=== PATIENT | male | born 1950 | race Caucasian/White ===

== ENCOUNTER 2017-09-14 08:17 | Inpatient (IN) | payer MEDICARE, MEDICAID ==
[2017-09-14] VITALS (7 sets, daily range): BP systolic 128–132; BP diastolic 74–77; PULSE 73–84; RESP 17–19; TEMP 98.1; Ht 177.8 cm; Wt 82.0 kg
[~2017-09-14] VITALS: Ht 177.8 cm; Wt 82.0 kg
[~2017-09-14 08:17] MED LIST: CENTSILV PO; SILD100T51
[2017-09-14] MEDS ORDERED: ASPIRIN 81 MG TAB PO STA (08:33)
[2017-09-14 09:11] LABS: BASOPHILS % 0.5 % (0.0-2.0); EOSINOPHILS # 0.5 10^3/ul (0.0-0.5); EOSINOPHILS % 6.6 % (0.0-7.0); HEMOGLOBIN 14.3 g/dl (14.0-18.0); LYMPHOCYTES % 13.3 % (15.0-51.0); MEAN CORPUSCULAR HEMOGLOBIN 28.6 pg (29.0-33.0); MEAN CORPUSCULAR HGB CONC 31.8 g/dl (32.0-37.0); MEAN PLATELET VOLUME 10.9 fl (7.4-10.4); MONOCYTE # 0.7 10^3/ul (0.3-0.9); MONOCYTES % 9.6 % (0.0-11.0); NEUTROPHIL # 5.1 10^3/ul (1.6-7.5); NEUTROPHILS % 69.6 % (39.0-77.0); PLATELET COUNT 252 10^3/UL (140-415); RED CELL DISTRIBUTION WIDTH 16.2 % (11.5-14.5); WHITE BLOOD COUNT 7.4 10^3/ul (4.8-10.8)
--- NOTE | 2017-09-14 09:37 | RADRPT ---
PROCEDURE: XR Chest. CLINICAL INDICATION: Chest pain . TECHNIQUE: Single frontal chest x-ray. COMPARISON: 08/28/2013 FINDINGS: There has been interval sternotomy and placement of a left-sided dual chamber AICD. . Cardiomegaly i s present.. There is mild bibasilar atelectasis. There is no alveolar infiltrates, edema, or effusi ons.. The osseous structures are intact. IMPRESSION: No acute cardiopulmonary disease. Cardiomegaly status post sternotomy with left-sided AICD in place. RPTAT: HH .Maynor Mcknight MD, Date Time Electronically viewed and signed by .Maynor Mcknight MD, on 09/14/2017 09:37 .L/
[2017-09-14 09:42] LABS: CALCIUM 8.4 mg/dl (8.4-10.2); POTASSIUM 4.3 mmol/L (3.5-5.1)
[2017-09-14 09:53] LABS: TROPONIN-I 0.034 ng/ml (0.00-0.12)
--- NOTE | 2017-09-14 10:23 | ERA ---
ER Documentation Chief Complaint Date/Time DATE: 09/14/17 TIME: 10:14 Chief Complaint Complains of chest tightness today Hx of CAD HPI 67-year-old male with a history of CAD, hypertension, stroke with chronic left- sided weakness presenting with substernal chest pain for the past 2-3 days. The pain is intermittent, radiating to his left arm and to his back occasionally. currently 2/10. Exacerbated by exertion. He has had associated shortness of breath without diaphoresis, dizziness, or vomiting. He endorses a history of CABG in 2013 and subsequently had an AICD placed. A few months ago, he was told to stop all of his medications, but cannot tell me why. His care was in [place]. Currently he is not on any medications other than occasional Viagra and vitamins. He denies any new focal weakness or numbness. He states his left leg is usually smaller than his right leg due to muscle atrophy from his stroke. No new leg swelling. No recent immobilization or surgeries. No history of blood clots. ROS All systems reviewed and are negative except as per history of present illness. Medications Home Meds Reported Medications Multivitamins/Minerals (Centrum Silver) 1 Tab Tab, 1 TAB PO DAILY 01/27/12 Sildenafil Citrate* (Viagra*) 100 Mg Tablet 04/23/11 Allergies Allergies: Coded Allergies: No Known Drug Allergies (Verified Allergy, Unknown, 09/14/17) PMhx/Soc History of Surgery: Yes (coronary bypass , pacemaker , lt ankle ,abd surgery ) Anesthesia Reaction: No Hx Neurological Disorder: Yes (stroke , lt side weakness ) Hx Respiratory Disorders: No Hx Cardiac Disorders: Yes (htn ) Hx Psychiatric Problems: Yes Hx Miscellaneous Medical Probl: Yes (acid reflux) Hx Alcohol Use: No Hx Substance Use: No Hx Tobacco Use: Yes (Pack and a half a day) Smoking Status: Current every day smoker FmHx Family History: No diabetes Physical Exam Vitals Vital Signs Date Time Temp Pulse Resp B/P Pulse Ox O2 Delivery O2 Flow Rate FiO2 09/14/17 09:45 84 16 113/68 98 Room Air 09/14/17 08:50 Nasal Cannula 2 09/14/17 08:22 97.0 84 20 141/79 98 Physical Exam Const: unkempt, no distress, nontoxic Head: Atraumatic Eyes: Normal Conjunctiva ENT: Normal External Ears, Nose and Mouth. Neck: Full range of motion..~ No meningismus. Resp: Clear to auscultation bilaterally Cardio: Regular rate and rhythm, no murmurs. 2+ distal pulses Abd: Soft, non tender, non distended. Normal bowel sounds Skin: No petechiae or rashes Back: No midline or flank tenderness Ext: No cyanosis. LLE with muscle atrophy. No pitting edema. Neur: Awake and alert, normal gait, left side weaker than tight but intact. RUE,RLE 5/5 strength. LUE and LLE 4+/5 strength. sensations intact. Psych: Normal Mood and Affect Result Diagram: 09/14/1785409/14/17854 Results 24 hrs Laboratory Tests Test 09/14/17 08:55 White Blood Count 7.410^3/ul Red Blood Count 5.0010^6/ul Hemoglobin 14.3g/dl Hematocrit 45.0% Mean Corpuscular Volume 90.0fl Mean Corpuscular Hemoglobin 28.6pg Mean Corpuscular Hemoglobin Concent 31.8g/dl Red Cell Distribution Width 16.2% Platelet Count 37735^3/UL Mean Platelet Volume 10.9fl Neutrophils % 69.6% Lymphocytes % 13.3% Monocytes % 9.6% Eosinophils % 6.6% Basophils % 0.5% Nucleated Red Blood Cells % 0.0/100WBC Neutrophils # 5.110^3/ul Lymphocytes # 1.010^3/ul Monocytes # 0.710^3/ul Eosinophils # 0.510^3/ul Basophils # 0.010^3/ul Nucleated Red Blood Cells # 0.010^3/ul Sodium Level 143mmol/L Potassium Level 4.3mmol/L Chloride Level 106mmol/L Carbon Dioxide Level 29mmol/L Anion Gap 12 Blood Urea Nitrogen 19mg/dl Creatinine 1.00mg/dl Glucose Level 98mg/dl Calcium Level 8.4mg/dl Troponin I 0.034ng/ml Current Medications Medications (Trade) Dose Ordered Sig/Jones Route PRN Reason Start Time Stop Time Status Last Admin Dose Admin Aspirin (Aspirin) 162 mg ONCE STAT PO 09/14/17 08:33 09/14/17 08:34 DC 09/14/17 08:38 Procedures/MDM EKG: Rate/Rhythm: V paced rhythm with preceding P waves prior to pacer spikes QRS, ST, T-waves: Nonspecific T-wave abnormalities Impression: No STEMI or arrhythmia Chest x-ray shows cardiomegaly, no other acute abnormalities Labs CBC unremarkable BMP unremarkable Troponin within normal limits Patients symptoms are concerning for a cardiac etiology. Other etiologies considered were PE, aortic dissection, pneumonia, pneumothorax, esophageal rupture, however I have lower suspicion for these. EKG showed no acute ischemia but was abnormal. Initial troponin negative. CXR grossly unremarkable. However , patient had high risk of adverse events. ASA given. Patient is not safe for discharge and will need inpatient monitoring and further evaluation. Further workup will be deferred to the inpatient team. Accepting Care Team: Current data and ongoing care discussed. Time: Time of admission Primary Provider: Kelvin Consulting: None Outstanding Data: none Departure Diagnosis: Primary Impression: Chest pain Qualified Code: R07.89 - Other chest pain Condition: Fair MARY KATE PRESTON MD Sep 14, 2017 10:23
[2017-09-14] MEDS ORDERED: ACETAMINOPHEN 325 MG TAB PO PRN ×2 (10:30→15:00)
[2017-09-14] MEDS ORDERED: ONDANSETRON 4 MG INJ IV PRN ×2 (10:30→15:00)
[2017-09-14] MEDS ORDERED: FAMOTIDINE 20 MG TAB PO ONE (10:30)
[2017-09-14 14:24] LABS: TROPONIN-I 0.022 ng/ml (0.00-0.12)
[2017-09-14 14:34] LABS: CK-MB 3.24 ng/ml (0.0-2.4)
--- NOTE | 2017-09-14 14:41 | HP ---
Date/Time of Note Date/Time of Note DATE: 09/14/17 TIME: 14:35 Assessment/Plan VTE Prophylaxis VTE Prophylaxis Intervention: SCD's Lines/Catheters [facility] Saline Lock Assessment/Plan Chief Complaint/Hosp Course 1. Chest pain x 1 week No e/o ACS at this time Cards consult with Dr Wynn Cardiac Rx 2. Homeless SW consult 3. Hx of of CAD and AICD placement PPx- SCD's Problems: HPI/ROS Admit Date/Time Admit Date/Time Sep 14, 2017 at 10:14 Hx of Present Illness Pt is a 67-year-old male with a history of CAD s/p CABG in 2013 and AICD placement, hypertension, stroke with chronic left-sided weakness presenting with substernal chest pain for the past week. The pain is intermittent, radiating to his left arm and to his back occasionally. Pt reports having stopped his medications for unclear reasons. Pt was living in [place] and recently moved back an dis now homeless. Pt has no other complaints. ROS Constitutional: improved, no complaints Eyes: no complaints ENT: no complaints Respiratory: no complaints Cardiovascular: chest pain Gastrointestinal: no complaints Genitourinary: no complaints Musculoskeletal: no complaints Skin: no complaints Neurologic: no complaints Endocrine: no complaints Lymphatic: no complaints Psychological: nl mood/affect, no complaints Immunologic: no complaints PMH/Family/Social Past Medical History As per HPI Past Surgical History Past Surgical Hx: no surgical history Family History Significant Family History: no pertinent family hx Social History Alcohol Use: none Smoking Status: Current every day smoker Drug Use: none Exam/Review of Systems Vital Signs Vitals Vital Signs Date Time Temp Pulse Resp B/P Pulse Ox O2 Delivery O2 Flow Rate FiO2 09/14/17 12:41 73 09/14/17 12:00 98.0 19 132/75 97 Room Air 09/14/17 08:50 2 Exam Constitutional: alert, oriented Respiratory: clear to auscultation Cardiovascular: regular rate and rhythm Gastrointestinal: soft, No distended Musculoskeletal: nl extremities to inspection Labs Result Diagram: 09/14/17 0855 09/14/17 0855 SYLVIA EID Sep 14, 2017 14:41
[2017-09-14] MEDS ORDERED: NACL 0.9% 3 ML SYG IV SCH (15:00)
[2017-09-14] MEDS ORDERED: ZOLPIDEM 5 MG TAB PO PRN (15:00)
[2017-09-14] MEDS ORDERED: NITROGLYCERIN (SL) 0.4 MG TAB SL PRN (15:00)
[2017-09-14] MEDS ORDERED: HYDROCODONE/APAP (5/325) TAB PO PRN (15:00)
[2017-09-14] MEDS ORDERED: morphine 2 MG INJ IV PRN (15:00)
[2017-09-14 20:59] LABS: TROPONIN-I 0.029 ng/ml (0.00-0.12)
[2017-09-14 21:17] LABS: CK-MB 2.61 ng/ml (0.0-2.4)
[2017-09-15] VITALS (12 sets, daily range): BP systolic 112–138; BP diastolic 60–87; PULSE 67–93; RESP 16–18
[2017-09-15 06:37] LABS: BASOPHILS % 0.7 % (0.0-2.0); EOSINOPHILS # 0.6 10^3/ul (0.0-0.5); EOSINOPHILS % 10.5 % (0.0-7.0); HEMATOCRIT 40.6 % (42.0-52.0); LYMPHOCYTES # 1.1 10^3/ul (0.8-2.9); LYMPHOCYTES % 19.2 % (15.0-51.0); MEAN CORPUSCULAR HEMOGLOBIN 28.4 pg (29.0-33.0); MEAN CORPUSCULAR VOLUME 88.6 fl (82.0-101.0); MEAN PLATELET VOLUME 11.6 fl (7.4-10.4); MONOCYTE # 0.6 10^3/ul (0.3-0.9); MONOCYTES % 10.7 % (0.0-11.0); NEUTROPHIL # 3.2 10^3/ul (1.6-7.5); NEUTROPHILS % 58.7 % (39.0-77.0); PLATELET COUNT 223 10^3/UL (140-415); RED BLOOD COUNT 4.58 10^6/ul (4.70-6.10); RED CELL DISTRIBUTION WIDTH 16.3 % (11.5-14.5); WHITE BLOOD COUNT 5.5 10^3/ul (4.8-10.8)
[2017-09-15 07:25] LABS: CALCIUM 8.5 mg/dl (8.4-10.2); CHOL/HDL RATIO 3.5 RATIO; CREATININE 0.97 mg/dl (0.61-1.24); MAGNESIUM 1.9 mg/dl (1.7-2.5); POTASSIUM 4.3 mmol/L (3.5-5.1)
[2017-09-15 07:45] LABS: PHOSPHORUS 3.4 mg/dl (2.5-4.9)
[2017-09-15] MEDS ORDERED: INFLUENZA VIRUS VACCINE 0.5 ML SYG IM* ONE (09:00)
[2017-09-15] MEDS: LISINOPRIL 5 MG TAB PO SCH (17:17)
--- NOTE | 2017-09-15 18:40 | PN ---
Date/Time of Note Date/Time of Note DATE: 09/15/17 TIME: 18:37 Assessment/Plan VTE Prophylaxis VTE Prophylaxis Intervention: SCD's Lines/Catheters [facility] Saline Lock Urinary Cath still in place: No Assessment/Plan Chief Complaint/Hosp Course 1. Chest pain x 1 week No e/o ACS at this time, trops are negative [address] Wynn pending Continue cardiac meds 2. Homeless SW consult 3. Hx of of CAD and AICD placement 4. Rash on groin Start nystatin cream PPx- SCD's Problems: Subjective 24 Hr Interval Summary Skin: rash (On groin) Exam/Review of Systems Vital Signs Vitals Vital Signs Date Time Temp Pulse Resp B/P Pulse Ox O2 Delivery O2 Flow Rate FiO2 09/15/17 16:51 74 09/15/17 15:35 97.7 16 120/79 96 09/14/17 12:00 Room Air 09/14/17 08:50 2 Intake and Output 09/14/17 09/14/17 09/15/17 15:00 23:00 07:00 Intake Total 950 ml 1000 ml Balance 950 ml 1000 ml Exam Constitutional: alert, oriented Respiratory: clear to auscultation Cardiovascular: regular rate and rhythm Gastrointestinal: soft, No distended Musculoskeletal: nl extremities to inspection Results Result Diagram: 09/15/17 0541 09/15/17 0541 Results 24 hrs Laboratory Tests Test 09/14/17 20:17 09/15/17 05:41 Creatine Kinase 58 Creatine Kinase Index 4.5 Creatinine Kinase MB (Mass) 2.61 H Troponin I 0.029 White Blood Count 5.5 # Red Blood Count 4.58 L Hemoglobin 13.0 L Hematocrit 40.6 L Mean Corpuscular Volume 88.6 Mean Corpuscular Hemoglobin 28.4 L Mean Corpuscular Hemoglobin Concent 32.0 Red Cell Distribution Width 16.3 H Platelet Count 223 Mean Platelet Volume 11.6 H Neutrophils % 58.7 Lymphocytes % 19.2 Monocytes % 10.7 Eosinophils % 10.5 H Basophils % 0.7 Nucleated Red Blood Cells % 0.0 Neutrophils # 3.2 Lymphocytes # 1.1 Monocytes # 0.6 Eosinophils # 0.6 H Basophils # 0.0 Nucleated Red Blood Cells # 0.0 Sodium Level 139 Potassium Level 4.3 Chloride Level 110 Carbon Dioxide Level 26 Anion Gap 7 L Blood Urea Nitrogen 23 H Creatinine 0.97 Glucose Level 99 Hemoglobin A1c 5.9 Calcium Level 8.5 Phosphorus Level 3.4 Magnesium Level 1.9 Triglycerides Level 75 Cholesterol Level 115 LDL Cholesterol, Calculated 68 HDL Cholesterol 32 Cholesterol/HDL Ratio 3.5 Medications Medications Current Medications Ondansetron HCl (Zofran Inj) 4 mg Q6H PRN IV NAUSEA AND/OR VOMITING; Start at 15:00 Acetaminophen (Tylenol Tab) 650 mg Q6H PRN PO PAIN LEVEL 1-3 OR FEVER; Start 09/14/17 at 15:00 Acetaminophen/ Hydrocodone Bitart ([place] (5/325)) 1 tab Q6H PRN PO MODERATE PAIN LEVEL 4-6; Start 09/14/17 at 15:00 Morphine Sulfate (morphine) 2 mg Q4H PRN IV SEVERE PAIN LEVEL 7-10; Start at 15:00 Zolpidem Tartrate (Ambien) 5 mg QHS PRN PO SLEEP; Start 09/14/17 at 15:00 Aspirin (Aspirin) 81 mg DAILY PO ; Start 09/16/17 at 09:00 Carvedilol (Coreg) 6.25 mg BID PO Last administered on 09/15/17 08:48; Admin Dose 6.25 MG; Start 09/14/17 at 21:00 Nitroglycerin (Nitroglycerin (Sl Tab) 0.4 Mg) 1 tab Q5M PRN SL CHEST PAIN; Start 09/14/17 at 15:00 Lisinopril (Zestril) 5 mg DAILY PO Last administered on 09/15/17 17:17; Admin Dose 5 MG; Start 09/15/17 at 13:00 SYLVIA EID Sep 15, 2017 18:40
[2017-09-15] MEDS: NYSTATIN 15 GM CR TOP SCH (20:17)
[2017-09-16] VITALS (13 sets, daily range): BP systolic 83–127; BP diastolic 50–70; PULSE 59–85; RESP 18–19
--- NOTE | 2017-09-16 07:21 | CONS ---
DATE OF ADMISSION: 09/14/2017 DATE OF CONSULTATION: 09/15/2017 TYPE OF CONSULTATION: Cardiology. REFERRING PHYSICIAN: Clint Warren MD REASON FOR EVALUATION: Chest pain. HISTORY OF PRESENT ILLNESS: Mr. Miller is a 67-year-old gentleman with history of hypertension, cor onary artery disease, history of coronary artery bypass graft in 2013, history of ICD, left-sided CV A who comes to the hospital now for evaluation of precordial chest pain. The patient has had interm ittent on and off chest pain for the last several days, radiating to the left arm. The patient does not have any recent ischemic risk stratification, I decided it would be reasonable to risk stratify the patient with a stress test. We will try to facilitate this study while optimizing his medical management. PAST MEDICAL HISTORY: Hypertension, coronary artery disease, history of coronary artery bypass nicole t in 2013, history of ICD, prior history of CVA. ALLERGIES: NO KNOWN DRUG ALLERGIES. SOCIAL HISTORY: The patient does not use tobacco. FAMILY HISTORY: Negative for sudden current is history of diabetes in the family. MEDICATIONS: The patient recently has not been using any medications, but his home medicines includ e: 1. Aspirin 81 mg p.o. once a day. 2. Coreg 6.25 mg b.i.d. 3. Ondansetron. 4. Morphine sulfate. REVIEW OF SYSTEMS: CONSTITUTIONAL: No fever, no chills. CARDIOVASCULAR: Chest pains. HEENT: No vision or hearing changes. RESPIRATORY: . GASTROINTESTINAL: No nausea, vomiting. GENITOURINARY: No dysuria, no hematuria. NEUROLOGIC: . PSYCHIATRIC: . PHYSICAL EXAMINATION: VITAL SIGNS: Temperature is 98.0, heart rate 74, blood pressure . GENERAL: He is a thin gentleman in no acute distress, alert and oriented x3, aware of his condition . HEAD: Normocephalic, atraumatic. Eyes anicteric. NECK: Supple. JVD 6-7 cm. There is no lymphadenopathy or thyromegaly. HEART: Regular with soft murmur at the apex. PMI is nondisplaced. There is no S3. LUNGS: Coarse at bases. ABDOMEN: Distended, bowel sounds are present. EXTREMITIES: cyanosis, or edema. LABORATORY DATA: White blood cell count 5.0, hemoglobin 7.0, platelets 223. His INR is 0.9. Sodiu m 139, potassium 4.3, BUN is 26, creatinine 0.9. Troponin is negative at 0.029. ASSESSMENT AND PLAN: 1. Chest pain. Patient reports chest pain, has multiple risk factors for coronary artery disease. Will risk stratify patient with a stress test while he is in the hospital. 2. Hypertension. Blood pressure well controlled. Continue to monitor closely. 3. Implantable cardioverter-defibrillator. The patient has history of CAD, patient noted on teleme try. We will see if patient had recent . Recommend 4. History of cerebrovascular accident. Continue medical therapy is noted, will try MADELYN inhibitor if he can handle. 5. Dyslipidemia. LDL is in good range. I would like to thank Dr. Warren for referring this patient for my evaluation. Dictated By: ROMINA BUTCHER MD ML/CRISTOBAL Conf#: [id number] DID#: [id number]
[2017-09-16] MEDS: LISINOPRIL 5 MG TAB PO SCH (08:31)
[2017-09-16] MEDS: NYSTATIN 15 GM CR TOP SCH ×2 (08:32→20:38)
[2017-09-16] MEDS: ASPIRIN 81 MG TAB PO SCH (08:32)
--- NOTE | 2017-09-16 11:23 | CONS ---
Date/Time of Note Date/Time of Note DATE: 09/16/17 TIME: 11:19 Assessment/Plan Assessment/Plan Chief Complaint/Hosp Course IMp: 1.Chest pain-negative trop x 3 2.abnl ecg 3.cad s/p cabg 4.cardiomyopathy 5.H/O ICD Recc: -Tele -serial ecg's -Continue asa -Decrease doses of BB/ACEI to allow patient to better tolerate -Lexiscan stress test today Problems: Consultation Date/Type/Reason Admit Date/Time Sep 14, 2017 at 10:14 Initial Consult Date 09/15/2017 Type of Consultation: cardiology Reason for Consultation Chest pain Referring Provider: SYLVIA EID Exam/Review of Systems Vital Signs Vitals Vital Signs Date Time Temp Pulse Resp B/P Pulse Ox O2 Delivery O2 Flow Rate FiO2 09/16/17 11:14 97.6 75 19 113/70 98 09/14/17 12:00 Room Air 09/14/17 08:50 2 Intake and Output 09/15/17 09/15/17 09/16/17 15:00 23:00 07:00 Intake Total 900 ml 250 ml Output Total 1200 ml Balance -300 ml 250 ml Exam Review of Systems: CONSTITUTIONAL: No fevers, chills. PULMONARY: No sob CARDIOVASCULAR: No chest pain/palpitations GASTROINTESTINAL: No nausea/vomiting. GENITOURINARY: No hematuria/dysuria. MUSCULOSKELETAL: No myagias/arthalgias. PSYCHIATRIC: The patient denies depression. NEUROLOGIC: No weakness Constitutional: alert Psych: no complaints Head: normocephalic ENMT: mucosa pink and moist Neck: jvd (8 cm water) Respiratory: clear to auscultation Cardiovascular: regular rate and rhythm Gastrointestinal: non-tender, soft Musculoskeletal: muscle tone (normal) Extremities: edema (none) Neurological: other (No focal deficits) Results Result Diagram: 09/15/17 0541 09/15/17 0541 Medications Medications Current Medications Ondansetron HCl (Zofran Inj) 4 mg Q6H PRN IV NAUSEA AND/OR VOMITING; Start at 15:00 Acetaminophen (Tylenol Tab) 650 mg Q6H PRN PO PAIN LEVEL 1-3 OR FEVER; Start 09/14/17 at 15:00 Acetaminophen/ Hydrocodone Bitart ([place] (5/325)) 1 tab Q6H PRN PO MODERATE PAIN LEVEL 4-6; Start 09/14/17 at 15:00 Morphine Sulfate (morphine) 2 mg Q4H PRN IV SEVERE PAIN LEVEL 7-10; Start at 15:00 Zolpidem Tartrate (Ambien) 5 mg QHS PRN PO SLEEP; Start 09/14/17 at 15:00 Aspirin (Aspirin) 81 mg DAILY PO Last administered on 09/16/17 08:32; Admin Dose 81 MG; Start 09/16/17 at 09:00 Carvedilol (Coreg) 6.25 mg BID PO Last administered on 09/15/17 20:18; Admin Dose 6.25 MG; Start 09/14/17 at 21:00 Nitroglycerin (Nitroglycerin (Sl Tab) 0.4 Mg) 1 tab Q5M PRN SL CHEST PAIN; Start 09/14/17 at 15:00 Lisinopril (Zestril) 5 mg DAILY PO Last administered on 09/15/17 17:17; Admin Dose 5 MG; Start 09/15/17 at 13:00 Nystatin (Nystatin Cr) 1 applic BID TOP Last administered on 09/16/17 08:32; Admin Dose 1 APPLIC; Start 09/15/17 at 21:00 OTIS HORAN Sep 16, 2017 11:23
[2017-09-16] MEDS ORDERED: REGADENOSON 0.4 MG/5 ML SYG ONE (11:47)
--- NOTE | 2017-09-16 15:20 | RADRPT ---
PROCEDURE: Lexiscan myocardial perfusion study CLINICAL INDICATION: 67 -year-old patient complaining of chest pain. TECHNIQUE: Lexiscan 0.4 mg intravenously separate acquisition gated myocardial perfusion SPECT usi ng Tc 99m Myoview 30.4 mCi intravenously at stress and Tc-99m Myoview, 9.5 mCi intravenously at rest was performed using the rest/stress sequence. Poststress Myoview SPECT images were obtained in the supine position. COMPARISON: No prior studies. FINDINGS: Perfusion images reveal a moderate size moderate in degree nonreversible perfusion defect in the inf eroapical, inferior and inferoseptal moreno. Lexiscan post stress gated SPECT images demonstrate severe hypokinesis of the left ventricle. IMPRESSION: 1. The type and distribution of the scintigraphic abnormalities are most consistent with a moderate -sized nonreversible perfusion defect in the inferoapical, inferior and inferoseptal moreno. 2. Severe hypokinesis of the left ventricle. 3. The left ventricle ejection fraction at stress is 14%. A call report was made to Dr. Wynn at 03:15 p.m. on September 16, 2017. RPTAT: HH .Katalina Bernstein MD, MD Date Time Electronically viewed and signed by .Katalina Bernstein MD, MD on 09/16/2017 15:20 .L/
--- NOTE | 2017-09-16 17:10 | CARRPT ---
DATE OF PROCEDURE: 09/16/2017 REASON FOR PROCEDURE: Chest pain, assess for ischemia. BASELINE VITAL SIGNS AND ELECTROCARDIOGRAM: Pulse 67, blood pressure 116/72. Electrocardiogram is ventricular paced and rate of 75. PROCEDURE: The patient was standard Lexiscan infusion protocol over 10 seconds followed by radiolab eled tracer. The patient's test was stopped due to completion of protocol. Maximal achieved blood pressure during the test 117/73. Maximum heart rate during the test 76. ELECTROCARDIOGRAM FINDINGS: The patient did not develop any new Lexiscan-induced ST or T-wave andrew es from baseline abnormalities. No documented PACs or documented PVCs. SYMPTOMS: The patient complained of slight chest pain during stress test that resolved in recovery. IMPRESSION: 1. No Lexiscan-induced ST or T-wave changes from baseline abnormalities that are diagnostic for car diac ischemia. 2. Positive complaints of chest pain during stress test that resolved in recovery. 3. No documented premature ventricular contractions during stress testing. 4. Report of nuclear images to follow in separate dictation. Dictated By: OTIS HENAO/CRISTOBAL Conf#: [id number] DID#: [id number] CC: SYLVIA EID MD;*EndCC*
--- NOTE | 2017-09-16 18:11 | RADRPT ---
Echocardiogram Report Patient Name: DALLIN ROSSI Gender: Male Date: 1950 Study Date: 15-Sep-2017 Practice Performance Manager: ELISA Location: I Ref. Physician: SYLVIA EID Quality: Adequate Procedures: Transthoracic echocardiogram with complete 2D, M-Mode, and Doppler examination. Indications: Chest Pain, Hx CAD, AICD. 2D/M Mode Doppler Measurement Value Normal Ranges Measurement Value Normal Ranges AoR Diam MM 3.6 cm AV Peak Abdulaziz 1.1 m/sec ACS MM 1.9 cm AV Peak PG 4.8 mmHg LVIDd 2D 6.7 3.5 - 5.6 cm LVOT Peak Abdulaziz 0.6 m/sec LVIDs 2D 5.9 2.1 - 4.1 cm LVOT Peak PG 1.3 mmHg LVPWd 2D 1.1 0.6 - 1.1 cm MV E Peak Abdulaziz 1.0 m/sec IVSd 2D 0.9 0.6 - 1.1 cm MV A Peak Abdulaziz 0.3 m/sec EDV 2D 230.6 cm3 MV E/A 3.4 ESV 2D 204.2 cm3 MV Decel Time 154 msec LA Dimen 2D 4.7 2.3 - 4.0 cm MV Decel [place] 6 MV E/A 3.4 TR Peak Abdulaziz 2.5 m/sec TR Peak PG 25.4 mmHg PV Peak Abdulaziz 0.9 m/sec PV Peak PG 3.0 mmHg RVSP 28.4 mmHg Findings Left Ventricle: Moderate enlargement of left ventricle cavity. Severe global left ventricular systolic dysfunction. Ejection fraction is visually estimated at 20 %. Tissue Doppler/Mitral Doppler indices are consistent with restrictive physiology with markedly elevated left atrial pressure (Stage IIIIV diastolic dysfunction). E/E`=20. Right Ventricle: Normal right ventricular size. Mild right ventricular systolic dysfunction. Mild to moderate right ventricular hypokinesis. Linear artifact in right ventricle suggestive of catheter, pacer lead, or ICD lead. Left Atrium: There is moderate enlargement of left atrium. Right Atrium: There is mild enlargement of right atrium. Linear artifact in right atrium suggestive of catheter, pacer lead, or ICD lead. Atrial Septum: Normal atrial septum. Mitral Valve: Mitral valve leaflets appear mildly thickened. Mild mitral annular calcification. Mild to moderate mitral valve regurgitation. Aortic Valve: No significant aortic stenosis or insufficiency. Normal trileaflet aortic valve structure. Tricuspid Valve: Normal appearance of the tricuspid valve. Estimated peak PA systolic pressure 28 mmHg. There is mild tricuspid regurgitation. Pulmonic Valve: Normal pulmonic valve appearance. There is trace pulmonic regurgitation. Pericardium: Normal pericardium with no significant pericardial effusion. Aorta: Normal aortic root. IVC: Normal size and normal respiratory collapse consistent with normal right atrial pressure. Pulmonary Artery: Normal pulmonary artery size. Conclusions 1.Moderate enlargement of left ventricle cavity. Severe global left ventricular systolic dysfunction. Ejection fraction is visually estimated at 20 %. Tissue Doppler/Mitral Doppler indices are consistent with restrictive physiology with markedly elevated left atrial pressure (Stage III-IV diastolic dysfunction). E/E`=20. 2.Normal right ventricular size. Mild right ventricular systolic dysfunction.. Mild to moderate right ventricular hypokinesis. Linear artifact in right ventricle suggestive of catheter, pacer lead, or ICD lead. 3.There is mild enlargement of right atrium. There is moderate enlargement of left atrium. 4.Mild to moderate mitral valve regurgitation. 5.Estimated peak PA systolic pressure 28 mmHg. There is mild tricuspid regurgitation. 6.There is trace pulmonic regurgitation. Electronically Signed By: Adam Wynn 16-Sep-2017 18:11:17 -0700 Patient Name: DALLIN ROSSI Study Date: 15-Sep-2017 [id number]
[2017-09-17] VITALS (12 sets, daily range): BP systolic 92–131; BP diastolic 53–81; PULSE 67–72; RESP 18–20
[2017-09-17] MEDS: ASPIRIN 81 MG TAB PO SCH (08:59)
[2017-09-17] MEDS: NYSTATIN 15 GM CR TOP SCH ×2 (09:00→21:00)
[2017-09-17] MEDS: LISINOPRIL 5 MG TAB PO SCH (09:00)
--- NOTE | 2017-09-17 09:26 | CONS ---
Date/Time of Note Date/Time of Note DATE: 09/17/17 TIME: 09:25 Assessment/Plan Assessment/Plan Additional Assessment/Plan 1.Chest pain-negative trop x 3 - EF 15% BY STRESS TEST, SEVERE NON-REVERSIBLE DISEASE. 2.abnl ecg - consistent with CMY 3.cad s/p cabg - no new intervention planned 4.cardiomyopathy - ischeaic, ICD in place 5.H/O ICD Consultation Date/Type/Reason Admit Date/Time Sep 14, 2017 at 10:14 Initial Consult Date Type of Consultation: cardiology Referring Provider: SYLVIA EID 24 HR Interval Summary Free Text/Dictation NO acute events - fixed severe CAD - med rx ROS: No fever, no chills, no nausea, no vomiting, no diarrhea/constipation No recent weight changes No chest pain, no PND, no orthopnea No dizziness, blurred vision No thirst, no heat or cold intolerance Exam/Review of Systems Vital Signs Vitals Vital Signs Date Time Temp Pulse Resp B/P Pulse Ox O2 Delivery O2 Flow Rate FiO2 09/17/17 08:13 71 09/17/17 07:15 97.8 19 92/54 95 09/14/17 12:00 Room Air 09/14/17 08:50 2 Intake and Output 09/16/17 09/16/17 09/17/17 15:00 23:00 07:00 Intake Total 250 ml 400 ml Balance 250 ml 400 ml Exam General: WN/WD/NAD, AOx 2-3 HEENT: Unicetric/atraumatic/EOMI (follow commands) NECK: JVD elevated, no thyromegaly Lymph: no lymphadenopathy HEART: regular with no S3, II/ systolic murmur at apex, ICD, PMI L LUNGS: Coarse sounds ABD: soft, NT, ND, +BS : Intact Neuro: non focal SKIN: chronic changes EXT: trace edema Results Result Diagram: 09/15/17 0541 09/15/17540 Medications Medications Current Medications Ondansetron HCl (Zofran Inj) 4 mg Q6H PRN IV NAUSEA AND/OR VOMITING; Start at 15:00 Acetaminophen (Tylenol Tab) 650 mg Q6H PRN PO PAIN LEVEL 1-3 OR FEVER; Start 09/14/17 at 15:00 Acetaminophen/ Hydrocodone Bitart ([place] (5/325)) 1 tab Q6H PRN PO MODERATE PAIN LEVEL 4-6; Start 09/14/17 at 15:00 Morphine Sulfate (morphine) 2 mg Q4H PRN IV SEVERE PAIN LEVEL 7-10; Start at 15:00 Zolpidem Tartrate (Ambien) 5 mg QHS PRN PO SLEEP; Start 09/14/17 at 15:00 Aspirin (Aspirin) 81 mg DAILY PO Last administered on 09/17/17 08:59; Admin Dose 81 MG; Start 09/16/17 at 09:00 Nitroglycerin (Nitroglycerin (Sl Tab) 0.4 Mg) 1 tab Q5M PRN SL CHEST PAIN; Start 09/14/17 at 15:00 Nystatin (Nystatin Cr) 1 applic BID TOP Last administered on 09/17/17 09:00; Admin Dose 1 APPLIC; Start 09/15/17 at 21:00 Carvedilol (Coreg) 3.125 mg BID PO Last administered on 09/17/17 08:59; Admin Dose 3.125 MG; Start 09/16/17 at 21:00 Lisinopril (Zestril) 2.5 mg DAILY PO Last administered on 09/17/17 09:00; Admin Dose 2.5 MG; Start 09/17/17 at 09:00 ROMINA BUTCHER MD Sep 17, 2017 09:26
--- NOTE | 2017-09-17 13:21 | PN ---
Date/Time of Note Date/Time of Note DATE: 09/17/17 TIME: 13:19 Assessment/Plan VTE Prophylaxis VTE Prophylaxis Intervention: LMWH Lines/Catheters IV Catheter Type (from Nrsg): Saline Lock Urinary Cath still in place: No Assessment/Plan Chief Complaint/Hosp Course 67 yo male with h/o CAD s/p CABG, ICD, systolic CHF EF 15% presenting wtih CP and acute systolic CHF exacerbation CHF: - Needs diuresis, lasix 20 IV BID for now CAD: - Aspirin and statin EF 15%: - MADELYN, Coreg, Brian ICD in place Discharge when euvolemic Homeless, needs SW consult Needs outpatient cards and PMD, new to [place] area Problems: Subjective 24 Hr Interval Summary Free Text/Dictation Feels well, complaint is of dry cough EF 15% on NST, nonreversible defects Exam/Review of Systems Vital Signs Vitals Vital Signs Date Time Temp Pulse Resp B/P Pulse Ox O2 Delivery O2 Flow Rate FiO2 09/17/17 12:30 67 09/17/17 11:30 98.5 19 117/72 97 09/14/17 12:00 Room Air 09/14/17 08:50 2 Intake and Output 09/16/17 09/16/17 09/17/17 15:00 23:00 07:00 Intake Total 250 ml 400 ml Balance 250 ml 400 ml Exam Alert well appearing +++ JVD to ear Lungs clear + b/l edema to ankles Results Result Diagram: 09/15/17 0541 09/15/17 05 Medications Medications Current Medications Ondansetron HCl (Zofran Inj) 4 mg Q6H PRN IV NAUSEA AND/OR VOMITING; Start at 15:00 Acetaminophen (Tylenol Tab) 650 mg Q6H PRN PO PAIN LEVEL 1-3 OR FEVER; Start 09/14/17 at 15:00 Acetaminophen/ Hydrocodone Bitart ([place] (5/325)) 1 tab Q6H PRN PO MODERATE PAIN LEVEL 4-6; Start 09/14/17 at 15:00 Morphine Sulfate (morphine) 2 mg Q4H PRN IV SEVERE PAIN LEVEL 7-10; Start at 15:00 Zolpidem Tartrate (Ambien) 5 mg QHS PRN PO SLEEP; Start 09/14/17 at 15:00 Aspirin (Aspirin) 81 mg DAILY PO Last administered on 09/17/17 08:59; Admin Dose 81 MG; Start 09/16/17 at 09:00 Nitroglycerin (Nitroglycerin (Sl Tab) 0.4 Mg) 1 tab Q5M PRN SL CHEST PAIN; Start 09/14/17 at 15:00 Nystatin (Nystatin Cr) 1 applic BID TOP Last administered on 09/17/17 09:00; Admin Dose 1 APPLIC; Start 09/15/17 at 21:00 Carvedilol (Coreg) 3.125 mg BID PO Last administered on 09/17/17 08:59; Admin Dose 3.125 MG; Start 09/16/17 at 21:00 Lisinopril (Zestril) 2.5 mg DAILY PO Last administered on 09/17/17 09:00; Admin Dose 2.5 MG; Start 09/17/17 at 09:00 Atorvastatin Calcium (Lipitor) 40 mg HS PO ; Start 09/17/17 at 21:00 LAZARA BATISTA MD Sep 17, 2017 13:21
[2017-09-17] MEDS: FUROSEMIDE 20 MG INJ IV SCH ×2 (13:23→17:12)
[2017-09-17] MEDS ORDERED: ATORVASTATIN 40 MG TAB PO SCH (21:00)
[2017-09-18] VITALS (11 sets, daily range): BP systolic 92–130; BP diastolic 53–76; PULSE 60–69; RESP 18–20
[2017-09-18] MEDS: FUROSEMIDE 20 MG INJ IV SCH (05:25)
[2017-09-18 08:19] LABS: BASOPHIL # 0.1 10^3/ul (0.0-0.1); BASOPHILS % 0.9 % (0.0-2.0); EOSINOPHILS # 0.7 10^3/ul (0.0-0.5); EOSINOPHILS % 10.6 % (0.0-7.0); HEMATOCRIT 44.2 % (42.0-52.0); HEMOGLOBIN 14.2 g/dl (14.0-18.0); LYMPHOCYTES # 1.1 10^3/ul (0.8-2.9); LYMPHOCYTES % 17.1 % (15.0-51.0); MEAN CORPUSCULAR HEMOGLOBIN 28.5 pg (29.0-33.0); MEAN CORPUSCULAR HGB CONC 32.1 g/dl (32.0-37.0); MEAN CORPUSCULAR VOLUME 88.6 fl (82.0-101.0); MEAN PLATELET VOLUME 11.6 fl (7.4-10.4); MONOCYTE # 0.7 10^3/ul (0.3-0.9); MONOCYTES % 10.2 % (0.0-11.0); NEUTROPHIL # 3.9 10^3/ul (1.6-7.5); NEUTROPHILS % 60.9 % (39.0-77.0); PLATELET COUNT 281 10^3/UL (140-415); RED BLOOD COUNT 4.99 10^6/ul (4.70-6.10); RED CELL DISTRIBUTION WIDTH 15.9 % (11.5-14.5); WHITE BLOOD COUNT 6.4 10^3/ul (4.8-10.8)
[2017-09-18] MEDS: ASPIRIN 81 MG TAB PO SCH (08:31)
[2017-09-18] MEDS: LISINOPRIL 5 MG TAB PO SCH (08:31)
[2017-09-18] MEDS: NYSTATIN 15 GM CR TOP SCH (08:32)
[2017-09-18 08:43] LABS: IRON 32 ug/dl (35-150)
[2017-09-18 08:53] LABS: TOTAL IRON BINDING CAPACITY 413 ug/dl (241-421)
[2017-09-18 09:20] LABS: ALANINE AMINOTRANSFERASE 33 IU/L (13-69); ALBUMIN 3.4 g/dl (3.3-4.9); ALBUMIN/GLOBULIN RATIO 1.17; ALKALINE PHOSPHATASE 89 IU/L (42-121); ANION GAP 11 (8-16); ASPARTATE AMINO TRANSFERASE 27 IU/L (15-46); BILIRUBIN,INDIRECT 0.3 mg/dl (0-1.1); BILIRUBIN,TOTAL 0.3 mg/dl (0.2-1.3); BLOOD UREA NITROGEN 30 mg/dl (7-20); CALCIUM 9.1 mg/dl (8.4-10.2); CARBON DIOXIDE 32 mmol/L (21-31); CHLORIDE 101 mmol/L (97-110); CREATININE 1.22 mg/dl (0.61-1.24); GLUCOSE 101 mg/dl (70-220); POTASSIUM 4.6 mmol/L (3.5-5.1); SODIUM 139 mmol/L (135-144); TOTAL PROTEIN 6.3 g/dl (6.1-8.1)
--- NOTE | 2017-09-18 09:54 | PN ---
Date/Time of Note Date/Time of Note DATE: 09/18/17 TIME: 09:52 Assessment/Plan VTE Prophylaxis VTE Prophylaxis Intervention: SCD's Lines/Catheters IV Catheter Type (from Nrs): Saline Lock Urinary Cath still in place: No Assessment/Plan Assessment/Plan 67 yo male with h/o CAD s/p CABG, ICD, systolic CHF EF 15% presenting wtih CP and acute systolic CHF exacerbation CHF: - Needs diuresis, lasix IV- will change it to 20mg IV daily CAD: - Aspirin and statin EF 15%: - MADELYN, Coreg, Rembrandt ICD in place SCD for DVT prophylaxis Discharge when euvolemic Homeless, needs SW consult downgrade to med/surge if ok with cardiology Needs outpatient cards and PMD, new to [place] area Subjective 24 Hr Interval Summary Free Text/Dictation doing ok, less SOB< BP stable, V paced Exam/Review of Systems Vital Signs Vitals Vital Signs Date Time Temp Pulse Resp B/P Pulse Ox O2 Delivery O2 Flow Rate FiO2 09/18/17 08:55 62 09/18/17 06:59 98.2 18 105/76 97 09/14/17 12:00 Room Air 09/14/17 08:50 2 Intake and Output 09/17/17 09/17/17 09/18/17 15:00 23:00 07:00 Intake Total 1300 ml 1200 ml Output Total 1200 ml 2000 ml Balance 100 ml -800 ml Exam Constitutional: alert, oriented Respiratory: clear to auscultation Cardiovascular: regular rate and rhythm Gastrointestinal: soft, No distended Musculoskeletal: nl extremities to inspection Results Result Diagram: 09/18/1712 09/18/17 0712 Results 24 hrs Laboratory Tests Test 09/18/17 07:12 White Blood Count 6.4 Red Blood Count 4.99 Hemoglobin 14.2 Hematocrit 44.2 Mean Corpuscular Volume 88.6 Mean Corpuscular Hemoglobin 28.5 L Mean Corpuscular Hemoglobin Concent 32.1 Red Cell Distribution Width 15.9 H Platelet Count 281 # Mean Platelet Volume 11.6 H Neutrophils % 60.9 Lymphocytes % 17.1 Monocytes % 10.2 Eosinophils % 10.6 H Basophils % 0.9 Nucleated Red Blood Cells % 0.0 Neutrophils # 3.9 Lymphocytes # 1.1 Monocytes # 0.7 Eosinophils # 0.7 H Basophils # 0.1 Nucleated Red Blood Cells # 0.0 Sodium Level 139 Potassium Level 4.6 Chloride Level 101 Carbon Dioxide Level 32 H Anion Gap 11 Blood Urea Nitrogen 30 H Creatinine 1.22 Glucose Level 101 Calcium Level 9.1 Iron Level 32 L Total Iron Binding Capacity 413 Percent Iron Saturation 8 L Ferritin 29.0 Total Bilirubin 0.3 Direct Bilirubin 0.00 Indirect Bilirubin 0.3 Aspartate Amino Transf (AST/SGOT) 27 Alanine Aminotransferase (ALT/SGPT) 33 Alkaline Phosphatase 89 Total Protein 6.3 Albumin 3.4 Globulin 2.90 Albumin/Globulin Ratio 1.17 Thyroid Stimulating Hormone (TSH) 1.650 HIV (1&2) Antibody NEGATIVE Medications Medications Current Medications Ondansetron HCl (Zofran Inj) 4 mg Q6H PRN IV NAUSEA AND/OR VOMITING; Start at 15:00 Acetaminophen (Tylenol Tab) 650 mg Q6H PRN PO PAIN LEVEL 1-3 OR FEVER; Start 09/14/17 at 15:00 Acetaminophen/ Hydrocodone Bitart ([place] (5/325)) 1 tab Q6H PRN PO MODERATE PAIN LEVEL 4-6; Start 09/14/17 at 15:00 Morphine Sulfate (morphine) 2 mg Q4H PRN IV SEVERE PAIN LEVEL 7-10; Start at 15:00 Zolpidem Tartrate (Ambien) 5 mg QHS PRN PO SLEEP; Start 09/14/17 at 15:00 Aspirin (Aspirin) 81 mg DAILY PO Last administered on 09/18/17 08:31; Admin Dose 81 MG; Start 09/16/17 at 09:00 Nitroglycerin (Nitroglycerin (Sl Tab) 0.4 Mg) 1 tab Q5M PRN SL CHEST PAIN; Start 09/14/17 at 15:00 Nystatin (Nystatin Cr) 1 applic BID TOP Last administered on 09/18/17 08:32; Admin Dose 1 APPLIC; Start 09/15/17 at 21:00 Carvedilol (Coreg) 3.125 mg BID PO Last administered on 09/18/17 08:30; Admin Dose 3.125 MG; Start 09/16/17 at 21:00 Lisinopril (Zestril) 2.5 mg DAILY PO Last administered on 09/18/17 08:31; Admin Dose 2.5 MG; Start 09/17/17 at 09:00 Atorvastatin Calcium (Lipitor) 40 mg HS PO Last administered on 09/17/17t 20: 52; Admin Dose 40 MG; Start 09/17/17 at 21:00 PUJA HORNER MD Sep 18, 2017 09:54
--- NOTE | 2017-09-18 11:50 | CONS ---
Date/Time of Note Date/Time of Note DATE: 09/18/17 TIME: 11:47 Assessment/Plan Assessment/Plan Chief Complaint/Hosp Course IMp: 1.Chest pain-negative trop x 3 2.abnl ecg 3.cad s/p cabg 4.cardiomyopathy-with severely depressed LVEF/no ischemia by lexiscan this admit 14% by lexiscan and 20% by echo 5.H/O ICD 6. CHF-systolic acute on chronic Recc: -Tele -serial ecg's -Continue asa -Continue BB/ACEI which he uis now tolerating -Continue lasix diuresis which has been decrased to daily and follow volume status clsoely -D/C planning Problems: Consultation Date/Type/Reason Admit Date/Time Sep 17, 2017 at 16:20 Initial Consult Date 09/15/2017 Type of Consultation: cardiology Reason for Consultation CHF Referring Provider: SYLVIA EID Exam/Review of Systems Vital Signs Vitals Vital Signs Date Time Temp Pulse Resp B/P Pulse Ox O2 Delivery O2 Flow Rate FiO2 09/18/17 11:33 98.5 59 19 103/56 94 09/14/17 12:00 Room Air 09/14/17 08:50 2 Intake and Output 09/17/17 09/17/17 09/18/17 15:00 23:00 07:00 Intake Total 1300 ml 1200 ml Output Total 1200 ml 2000 ml Balance 100 ml -800 ml Exam Review of Systems: CONSTITUTIONAL: No fevers, chills. PULMONARY: No sob CARDIOVASCULAR: No chest pain/palpitations GASTROINTESTINAL: No nausea/vomiting. GENITOURINARY: No hematuria/dysuria. MUSCULOSKELETAL: No myagias/arthalgias. PSYCHIATRIC: The patient denies depression. NEUROLOGIC: No weakness Constitutional: alert, oriented Psych: no complaints Head: normocephalic ENMT: mucosa pink and moist Neck: jvd (9 cm water) Respiratory: diminished breath sounds Cardiovascular: regular rate and rhythm Gastrointestinal: non-tender, soft Musculoskeletal: muscle tone (normal) Extremities: edema (trace/B) Neurological: other (No focal deficits) Results Result Diagram: 09/18/17 0712 09/18/17 0712 Results 24 hrs Laboratory Tests Test 09/18/17 07:12 White Blood Count 6.4 Red Blood Count 4.99 Hemoglobin 14.2 Hematocrit 44.2 Mean Corpuscular Volume 88.6 Mean Corpuscular Hemoglobin 28.5 L Mean Corpuscular Hemoglobin Concent 32.1 Red Cell Distribution Width 15.9 H Platelet Count 281 # Mean Platelet Volume 11.6 H Neutrophils % 60.9 Lymphocytes % 17.1 Monocytes % 10.2 Eosinophils % 10.6 H Basophils % 0.9 Nucleated Red Blood Cells % 0.0 Neutrophils # 3.9 Lymphocytes # 1.1 Monocytes # 0.7 Eosinophils # 0.7 H Basophils # 0.1 Nucleated Red Blood Cells # 0.0 Sodium Level 139 Potassium Level 4.6 Chloride Level 101 Carbon Dioxide Level 32 H Anion Gap 11 Blood Urea Nitrogen 30 H Creatinine 1.22 Glucose Level 101 Calcium Level 9.1 Iron Level 32 L Total Iron Binding Capacity 413 Percent Iron Saturation 8 L Ferritin 29.0 Total Bilirubin 0.3 Direct Bilirubin 0.00 Indirect Bilirubin 0.3 Aspartate Amino Transf (AST/SGOT) 27 Alanine Aminotransferase (ALT/SGPT) 33 Alkaline Phosphatase 89 Total Protein 6.3 Albumin 3.4 Globulin 2.90 Albumin/Globulin Ratio 1.17 Thyroid Stimulating Hormone (TSH) 1.650 HIV (1&2) Antibody NEGATIVE Medications Medications Current Medications Ondansetron HCl (Zofran Inj) 4 mg Q6H PRN IV NAUSEA AND/OR VOMITING; Start at 15:00 Acetaminophen (Tylenol Tab) 650 mg Q6H PRN PO PAIN LEVEL 1-3 OR FEVER; Start 09/14/17 at 15:00 Acetaminophen/ Hydrocodone Bitart ([place] (5/325)) 1 tab Q6H PRN PO MODERATE PAIN LEVEL 4-6; Start 09/14/17 at 15:00 Morphine Sulfate (morphine) 2 mg Q4H PRN IV SEVERE PAIN LEVEL 7-10; Start at 15:00 Zolpidem Tartrate (Ambien) 5 mg QHS PRN PO SLEEP; Start 09/14/17 at 15:00 Aspirin (Aspirin) 81 mg DAILY PO Last administered on 09/18/17 08:31; Admin Dose 81 MG; Start 09/16/17 at 09:00 Nitroglycerin (Nitroglycerin (Sl Tab) 0.4 Mg) 1 tab Q5M PRN SL CHEST PAIN; Start 09/14/17 at 15:00 Nystatin (Nystatin Cr) 1 applic BID TOP Last administered on 09/18/17 08:32; Admin Dose 1 APPLIC; Start 09/15/17 at 21:00 Carvedilol (Coreg) 3.125 mg BID PO Last administered on 09/18/17 08:30; Admin Dose 3.125 MG; Start 09/16/17 at 21:00 Lisinopril (Zestril) 2.5 mg DAILY PO Last administered on 09/18/17 08:31; Admin Dose 2.5 MG; Start 09/17/17 at 09:00 Atorvastatin Calcium (Lipitor) 40 mg HS PO Last administered on 09/17/17 20: 52; Admin Dose 40 MG; Start 09/17/17 at 21:00 Furosemide (Lasix) 20 mg DAILY IV ; Start 09/19/17 at 09:00 OTIS HOARN Sep 18, 2017 11:50
--- NOTE | 2017-09-18 21:29 | DS ---
Date/Time of Note Date/Time of Note DATE: 09/18/17 TIME: 21:25 Discharge Summary Admission/Discharge Info Admit Date/Time Sep 17, 2017 at 16:20 Discharge Date/Time Sep 18, 2017 at 20:30- pt left against medical advise Discharge Diagnosis 1, acute CHF Exacerbation, acute on chronic systolic 2. Cadiomyopathy ischemic with EF 15% 3. H/o CAD s/p CABG 4 . HTN Patient Condition: Good Consults Cardiology Consult Procedures Pt had a lexiscan done today that showed moderate-sized nonreversible perfusion defect in the inferoapical, inferior and inferoseptal moreno.Severe hypokinesis of the left ventricle.The left ventricle ejection fraction at stress is 14%. Hx of Present Illness Pt is a 67-year-old male with a history of CAD s/p CABG in 2013 and AICD placement, hypertension, stroke with chronic left-sided weakness presenting with substernal chest pain for the past week. The pain is intermittent, radiating to his left arm and to his back occasionally. Pt reports having stopped his medications for unclear reasons. Pt was living in [place] and recently moved back an [facility] now homeless. Pt has no other complaints. Hospital Course IMp: 1.Chest pain-negative trop x 3 2.abnl ecg 3.cad s/p cabg 4.cardiomyopathy-with severely depressed LVEF/no ischemia by lexiscan this admit 14% by lexiscan and 20% by echo 5.H/O ICD 6. CHF-systolic acute on chronic pt was diuresed with IV lasix while being in hospital. he improved, cardiolgoy was following, He signed out against medical advise on 09/18/17 with knowing risks and complications of signing against medical advise Home Meds Discontinued Reported Medications Multivitamins/Minerals (Centrum Silver) 1 Tab Tab, 1 TAB PO DAILY 01/27/12 Sildenafil Citrate* (Viagra*) 100 Mg Tablet 04/23/11 Follow-up Plan He was instruced by Nurse to come back to ED if c/o chest pain, palpitation, SOB he is also advised to follow up with his own PMD as soon as possible Primary Care Provider Care Physician No Primary Time spent on discharge: > 30 minutes Pending Labs Laboratory Tests Test 09/18/17 07:12 White Blood Count 6.410^3/ul (4.8-10.8) Red Blood Count 4.9910^6/ul (4.70-6.10) Hemoglobin 14.2g/dl (14.0-18.0) Hematocrit 44.2% (42.0-52.0) Mean Corpuscular Volume 88.6fl (82.0-101.0) Mean Corpuscular Hemoglobin 28.5pg (29.0-33.0) Mean Corpuscular Hemoglobin Concent 32.1g/dl (32.0-37.0) Red Cell Distribution Width 15.9% (11.5-14.5) Platelet Count 00417^3/UL (140-415) Mean Platelet Volume 11.6fl (7.4-10.4) Neutrophils % 60.9% (39.0-77.0) Lymphocytes % 17.1% (15.0-51.0) Monocytes % 10.2% (0.0-11.0) Eosinophils % 10.6% (0.0-7.0) Basophils % 0.9% (0.0-2.0) Nucleated Red Blood Cells % 0.0/100WBC (0.0-0.0) Neutrophils # 3.910^3/ul (1.6-7.5) Lymphocytes # 1.110^3/ul (0.8-2.9) Monocytes # 0.710^3/ul (0.3-0.9) Eosinophils # 0.710^3/ul (0.0-0.5) Basophils # 0.110^3/ul (0.0-0.1) Nucleated Red Blood Cells # 0.010^3/ul (0.0-0.0) Sodium Level 139mmol/L (135-144) Potassium Level 4.6mmol/L (3.5-5.1) Chloride Level 101mmol/L (97-110) Carbon Dioxide Level 32mmol/L (21-31) Anion Gap 11 (8-16) Blood Urea Nitrogen 30mg/dl (7-20) Creatinine 1.22mg/dl (0.61-1.24) Glucose Level 101mg/dl (70-220) Calcium Level 9.1mg/dl (8.4-10.2) Iron Level 32ug/dl (35-150) Total Iron Binding Capacity 413ug/dl (241-421) Percent Iron Saturation 8% SAT (22-52) Ferritin 29.0ng/ml (11.1-264.0) Total Bilirubin 0.3mg/dl (0.2-1.3) Direct Bilirubin 0.00mg/dl (0.00-0.20) Indirect Bilirubin 0.3mg/dl (0-1.1) Aspartate Amino Transf (AST/SGOT) 27IU/L (15-46) Alanine Aminotransferase (ALT/SGPT) 33IU/L (13-69) Alkaline Phosphatase 89IU/L (42-121) Total Protein 6.3g/dl (6.1-8.1) Albumin 3.4g/dl (3.3-4.9) Globulin 2.90g/dl (1.3-3.2) Albumin/Globulin Ratio 1.17 Thyroid Stimulating Hormone (TSH) 1.650MIU/L (0.465-4.680) HIV (1&2) Antibody NEGATIVE (NEGATIVE) PUJA HORNER MD Sep 18, 2017 21:29
[2017-09-19] MEDS ORDERED: FUROSEMIDE 20 MG INJ IV SCH (09:00)
== END 2017-09-18 20:30 | disposition left against medical advice (07) | DRG 293 ==
LOC: E/R 08:17 → TEL 10:14 → OBSVTOIN 09-17 16:20 → MS2 09-18 19:07
PROVIDERS: ADMIT Internal Medicine; ATTEND Internal Medicine
DX: I11.0 Hypertensive heart disease with heart failure (principal); Z95.1 Presence of aortocoronary bypass graft; F17.210 Nicotine dependence, cigarettes, uncomplicated; I25.5 Ischemic cardiomyopathy; I50.23 Acute on chronic systolic (congestive) heart failure; Z59.0 Homelessness; Z95.810 Presence of automatic (implantable) cardiac defibrillator; R21 Rash and other nonspecific skin eruption; Z86.73 Personal history of transient ischemic attack (TIA), and cerebral infarction without residual deficits
CPT/HCPCS: 36415; 71010; 78452; 80048; 80053; 80061; 82550; 82553; 82728; 83036; 83540; 83735; 84100; 84443; 84484; 85025; 86703; 90686; 93005; 93017; 93306; G0378; J1940; A4310; A9500; A9505; J2785

== ENCOUNTER 2017-10-19 10:44 | Emergency (ER) | payer MEDICARE, MEDICAID ==
[~2017-10-19] VITALS: Ht 177.8 cm; Wt 84.1 kg
[2017-10-19 10:48] VITALS: Ht 177.8 cm; Wt 84.1 kg
--- NOTE | 2017-10-19 11:05 | ERD ---
ER Documentation Chief Complaint Chief Complaint Complains of back pain x 3 days HPI 67y/o male patient with with history of a chronic back pain, coronary artery disease, hypertension, presents to the emergency department c/o vaginal onset of lower back pain, constant, that started getting worse 2 days ago. The pain is dull, rated 8/10, without radiation. The symptoms are probably caused by muscle spasm . Aggravating factors: Lateral rotation and bending over. Alleviating factors: None. Denies fever, chills, N/V/D. Positive history of previous episodes. Treatment attempted: None. ROS SYSTEMIC symptoms: no fever, chills, no night sweats, no weight loss EYE symptoms: No blurred vision, no eye discharge OTOLARYNGEAL symptoms: No hearing loss. No ear pain, no sore throat CARDIOVASCULAR symptoms: No chest pain or discomfort, no palpitations. PULMONARY symptoms: No dyspnea, no cough, no wheezing. GASTROINTESTINAL symptoms: No abdominal pain, no nausea, no vomiting, no diarrhea MUSCULOSKELETAL symptoms: Positive for arthralgias and muscle aches NEUROLOGY symptoms: No confusion, no syncope, no numbness or tingling. SKIN no rashes Medications Home Meds Active Scripts Hydrocodone/Acetaminophen ([place] 5-325 Tablet) 1 Each Tablet, 1 TAB PO Q6H Y for PAIN, #20 TAB Prov:NATHEN RUCKER MD 10/19/17 Allergies Allergies: Coded Allergies: No Known Drug Allergies (Verified Allergy, Unknown, 09/14/17) PMhx/Soc History of Surgery: Yes (PACEMAKER (2014)/ LEFT ANKLE (ARTERIAL DSE)/ ABDL SURGERY (PUD)/CABG) Anesthesia Reaction: No Hx Neurological Disorder: Yes (LEFT SIDED WEAKNESS/ SLIGHT LEFT FACIAL DROOP/ SLOW SPEECH) Hx Respiratory Disorders: No (HX PNEUMONIA/ TAPERING OFF SMOKING BUT HAVE NOT QUIT FULLY) Hx Cardiac Disorders: Yes (HTN/ DYSLIPIDEMIA) Hx Psychiatric Problems: Yes (DEPRESSION) Hx Miscellaneous Medical Probl: No Hx Alcohol Use: Yes (SOCIALLY) Hx Substance Use: No Hx Tobacco Use: Yes Physical Exam Vitals Vital Signs Date Time Temp Pulse Resp B/P Pulse Ox O2 Delivery O2 Flow Rate FiO2 10/19/17 10:48 98.1 81 20 137/81 96 Physical Exam Patient is in no acute distress, vital signs stable. Alert and fully oriented. EYES: PERRLA, EOMI, Sclera and conjunctiva appear normal. EARS: Canals clear, tympanic membranes WNL THROAT: Normal oropharynx. NECK: Supple, No lymphadenopathy. Full ROM without pain or tenderness. HEART: RRR, no rubs, murmurs, clicks or gallops. LUNGS: Clear to auscultation. ABDOMEN: Soft, non-tender without masses or hepatosplenomegaly. MUSC: Back: No deformity, normal back exam Results 24 hrs Laboratory Tests Test 10/19/17 11:38 Urine Color YELLOW Urine Clarity CLEAR Urine pH 6.0 Urine Specific [place] 1.014 Urine Ketones NEGATIVEmg/dL Urine Nitrite NEGATIVEmg/dL Urine Bilirubin NEGATIVEmg/dL Urine Urobilinogen 1+mg/dL Urine Leukocyte Esterase NEGATIVELeu/ul Urine Microscopic RBC 2/HPF Urine Microscopic WBC 1/HPF Urine Hemoglobin NEGATIVEmg/dL Urine Glucose NEGATIVEmg/dL Urine Total Protein 1+mg/dl Current Medications Medications (Trade) Dose Ordered Sig/Jones Route PRN Reason Start Time Stop Time Status Last Admin Dose Admin Ketorolac Tromethamine (Toradol) 30 mg ONCE STAT IM 10/19/17 11:23 10/19/17 11:28 DC Procedures/MDM 67y/o male patient with history of coronary artery disease, arthritis, hypertension and chronic back pain, presents to the ED c/o worsening of chronic back pain for 3 days. Vital signs stable, Physical exam unremarkable. Differential diagnosis include but not limited to: Acute musculoskeletal injury , herniated disc, urolithiasis, UTI, arthritis, degenerative disc disease. Low suspicion for vertebral fracture, cauda equina syndrome, psoas abscess.. Pertinent Data: UA: In normal range, no signs of infection or hematuria. Physical examination and clinical presentation consistent most likely with acute on chronic back pain. During the ED course the patient received treatment with Toradol IM presenting overall improvement of the symptoms. Results and clinical impression discussed with patient who agrees with management. The patient is stable to be treated outpatient and will be discharged home with a Rx for [place] for 3 days Side effects of prescribed opiates (drowsiness, habituation) were reviewed. The patient was instructed to follow up with the primary care provider in the next 48h. If symptoms persist, worsen or new symptoms develop, then patient should return to the ED immediately. Instructions explained and given to patient with acknowledgment and demonstrated understanding. Disclaimer: Inadvertent spelling and grammatical errors are likely due to EHR/ dictation software use and do not reflect on the overall quality of patient care. Also, please note that the electronic time recorded on this note does not necessarily reflect the actual time of the patient encounter. Departure Diagnosis: Primary Impression: Chronic lower back pain Condition: Stable Additional Instructions: Thank you very much for allowing us to participate in your care. Your health and safety is our top priority at [facility]. Have prescriptions filled and follow precisely the directions on the label. Follow-up with primary care provider during the next 4 days and bring all the information and medications prescribed. If illness has not improved in 2 days, then make an appointment with primary care provider. If the provider is unavailable, return to the Emergency Department immediately. NATHEN RUCKER MD Oct 19, 2017 11:05
[2017-10-19] MEDS ORDERED: KETOROLAC 30 MG INJ IM STA (11:23)
[2017-10-19 11:58] LABS: ADD UMIC YES; UR ASCORBIC ACID 40 mg/dL (NEGATIVE); UR BILIRUBIN (Dip) NEGATIVE (NEGATIVE); UR BLOOD (Dip) NEGATIVE (NEGATIVE); UR CLARITY CLEAR (CLEAR); UR COLOR YELLOW (YELLOW); UR GLUCOSE (Dip) NEGATIVE (NEGATIVE); UR KETONES (Dip) NEGATIVE (NEGATIVE); UR LEUKOCYTE ESTERASE (Dip) NEGATIVE Leu/ul (NEGATIVE); UR NITRITE (Dip) NEGATIVE (NEGATIVE); UR RBC 2 /HPF (0-5); UR SPECIFIC GRAVITY (Dip) 1.014 (1.003-1.030); UR TOTAL PROTEIN (Dip) 1+ mg/dl (NEGATIVE); UR UROBILINOGEN (Dip) 1+ mg/dL (NEGATIVE)
[2017-10-19] MEDS ORDERED: HYDR-906 PO (12:31)
== END 2017-10-19 13:27 | disposition home or self-care (01) ==
LOC: FTE 10:44
DX: M54.5 Low back pain (principal); I25.10 Atherosclerotic heart disease of native coronary artery without angina pectoris; I10 Essential (primary) hypertension; Z87.891 Personal history of nicotine dependence; Z95.0 Presence of cardiac pacemaker
CPT/HCPCS: 81001; 96372; 99284; J1885

== ENCOUNTER 2017-11-12 17:29 | Inpatient (IN) | payer MEDICARE, MEDICAID ==
[~2017-11-12] VITALS: Ht 177.8 cm; Wt 82.0 kg
[~2017-11-12 17:29] MED LIST changes: -CENTSILV PO; +HYDR-906 PO; -SILD100T51
--- NOTE | 2017-11-12 18:10 | RADRPT ---
PROCEDURE: XR Chest. CLINICAL INDICATION: Chest pain TECHNIQUE: Single frontal view of the chest was obtained COMPARISON: 08/28/13 FINDINGS: The heart is enlarged. The thoracic aorta is calcified. There is mild pulmonary vascular congestion. There is a moderate left pleural effusion and a small r ight pleural effusion. There is a left-sided pacemaker / AICD in place. There is no pneumothorax. RPTAT: AA IMPRESSION: Mild cardiomegaly. Mild pulmonary vascular congestion. Moderate left pleural effusion and small right pleural effusion. Calcified aorta consistent with atherosclerotic disease. .Enrico Cordova MD, Date Time Electronically viewed and signed by .Enrico Cordova MD, on 11/12/2017 18:10 .S/
[2017-11-12 18:41] LABS: BASOPHIL # 0.1 10^3/ul (0.0-0.1); BASOPHILS % 0.9 % (0.0-2.0); EOSINOPHILS # 0.6 10^3/ul (0.0-0.5); EOSINOPHILS % 9.1 % (0.0-7.0); HEMATOCRIT 40.5 % (42.0-52.0); HEMOGLOBIN 13.3 g/dl (14.0-18.0); LYMPHOCYTES # 1.3 10^3/ul (0.8-2.9); LYMPHOCYTES % 18.8 % (15.0-51.0); MEAN CORPUSCULAR HEMOGLOBIN 28.1 pg (29.0-33.0); MEAN CORPUSCULAR HGB CONC 32.8 g/dl (32.0-37.0); MEAN CORPUSCULAR VOLUME 85.4 fl (82.0-101.0); MEAN PLATELET VOLUME 10.9 fl (7.4-10.4); MONOCYTE # 0.8 10^3/ul (0.3-0.9); MONOCYTES % 11.3 % (0.0-11.0); NEUTROPHIL # 4.1 10^3/ul (1.6-7.5); NEUTROPHILS % 59.6 % (39.0-77.0); PLATELET COUNT 273 10^3/UL (140-415); RED BLOOD COUNT 4.74 10^6/ul (4.70-6.10); RED CELL DISTRIBUTION WIDTH 17.3 % (11.5-14.5); WHITE BLOOD COUNT 6.8 10^3/ul (4.8-10.8)
[2017-11-12 19:14] LABS: CALCIUM 8.2 mg/dl (8.4-10.2); CREATININE 1.04 mg/dl (0.61-1.24); POTASSIUM 4.3 mmol/L (3.5-5.1)
[2017-11-12 19:25] LABS: TROPONIN-I 0.03 ng/ml (0.00-0.12)
[2017-11-12] MEDS ORDERED: ASPI81TA3 PO (19:29)
[2017-11-12] MEDS ORDERED: ATOR80TA75 PO (19:29)
[2017-11-12] MEDS ORDERED: MULT-861 PO (19:30)
[2017-11-12] MEDS ORDERED: FUROSEMIDE 20 MG INJ IV ONE (20:00)
[2017-11-12] MEDS ORDERED: ONDANSETRON 4 MG INJ IV PRN ×2 (21:00→21:30)
[2017-11-12] MEDS ORDERED: ACETAMINOPHEN 325 MG TAB PO PRN ×2 (21:00→21:30)
[2017-11-12] MEDS ORDERED: BISACODYL (EC) 5 MG TAB PO PRN (21:30)
[2017-11-12] MEDS ORDERED: NACL 0.9% 3 ML SYG IV SCH (21:30)
[2017-11-12] MEDS ORDERED: DOCUSATE SODIUM 100 MG CAP PO PRN (21:30)
[2017-11-12] MEDS ORDERED: ASPIRIN 81 MG TAB PO ONE ×2 (22:00→22:30)
--- NOTE | 2017-11-12 22:32 | ERD ---
ER Documentation Chief Complaint Chief Complaint chest pain non provoked for the few hours. no sob. no n/v HPI 67-year-old male presents for acute onset chest pain and shortness of breath for the last 2 hours. Is having trouble catching his breath. Chest pain as a pressure-like sensation is substernal and left-sided nonradiating. I reviewed his EMR prior to seeing him and he has an ejection fraction of 14% on his last visit and admission for chest pain. Denies fever and chills. Denies cough. Planes of chronic bilateral leg pain as well. ROS All systems reviewed and are negative except as per history of present illness. Medications Home Meds Active Scripts Hydrocodone/Acetaminophen ([place] 5-325 Tablet) 1 Each Tablet, 1 TAB PO Q6H Y for PAIN, #20 TAB Prov:NATHEN RUCKER MD 10/19/17 Reported Medications Multivits,Ca,Min/Iron/FA/Lycop (Centrum Men's Tablet) 1 Each Tablet, 1 EACH PO DAILY, TAB 11/12/17 Aspirin* (Aspirin* Chew) 81 Mg Tab.chew, 81 MG PO DAILY, TAB.CHEW 11/12/17 Atorvastatin* (Atorvastatin*) 80 Mg Tablet, 80 MG PO DAILY, #30 TAB 11/12/17 Allergies Allergies: Coded Allergies: No Known Drug Allergies (Verified Allergy, Unknown, 11/12/17) PMhx/Soc History of Surgery: Yes (PACEMAKER (2014)/ LEFT ANKLE (ARTERIAL DSE)/ ABDL SURGERY (PUD)/CABG) Anesthesia Reaction: No Hx Neurological Disorder: Yes (LEFT SIDED WEAKNESS/ SLIGHT LEFT FACIAL DROOP/ SLOW SPEECH) Hx Respiratory Disorders: No (HX PNEUMONIA/ TAPERING OFF SMOKING BUT HAVE NOT QUIT FULLY) Hx Cardiac Disorders: Yes (HTN/ DYSLIPIDEMIA) Hx Psychiatric Problems: Yes (DEPRESSION) Hx Miscellaneous Medical Probl: No Hx Alcohol Use: Yes (SOCIALLY) Hx Substance Use: No Hx Tobacco Use: Yes Smoking Status: Current every day smoker Physical Exam Vitals Vital Signs Date Time Temp Pulse Resp B/P Pulse Ox O2 Delivery O2 Flow Rate FiO2 11/12/17 22:09 98.3 66 16 115/64 98 Room Air 11/12/17 18:56 83 18 121/90 95 Room Air 11/12/17 18:40 98.4 72 21 119/75 98 11/12/17 18:37 Nasal Cannula 2 Physical Exam Const: [] Distress, appears uncomfortable Head: Atraumatic Eyes: Normal Conjunctiva ENT: Normal External Ears, Nose and Mouth. Neck: Full range of motion..~ No meningismus. Resp: Decreased bibasilar breath sounds. Cardio: Regular rate and rhythm, no murmurs Abd: Soft, non tender, non distended. Normal bowel sounds Skin: No petechiae or rashes Back: No midline or flank tenderness Ext: No cyanosis, trace ankle edema, distal pulses intact bilateral lower extremities Neur: Awake and alert and oriented, no focal deficits Psych: Normal Mood and Affect Result Diagram: 11/12/17181711/12/178 Results 24 hrs Laboratory Tests Test 11/12/17 18:18 White Blood Count 6.810^3/ul Red Blood Count 4.7410^6/ul Hemoglobin 13.3g/dl Hematocrit 40.5% Mean Corpuscular Volume 85.4fl Mean Corpuscular Hemoglobin 28.1pg Mean Corpuscular Hemoglobin Concent 32.8g/dl Red Cell Distribution Width 17.3% Platelet Count 42983^3/UL Mean Platelet Volume 10.9fl Neutrophils % 59.6% Lymphocytes % 18.8% Monocytes % 11.3% Eosinophils % 9.1% Basophils % 0.9% Nucleated Red Blood Cells % 0.0/100WBC Neutrophils # 4.110^3/ul Lymphocytes # 1.310^3/ul Monocytes # 0.810^3/ul Eosinophils # 0.610^3/ul Basophils # 0.110^3/ul Nucleated Red Blood Cells # 0.010^3/ul Sodium Level 137mmol/L Potassium Level 4.3mmol/L Chloride Level 107mmol/L Carbon Dioxide Level 26mmol/L Anion Gap 8 Blood Urea Nitrogen 23mg/dl Creatinine 1.04mg/dl Glucose Level 84mg/dl Calcium Level 8.2mg/dl Troponin I 0.030ng/ml B-Type Natriuretic Peptide 5110PG/ML Current Medications Medications (Trade) Dose Ordered Sig/Jones Route PRN Reason Start Time Stop Time Status Last Admin Dose Admin Furosemide (Lasix) 20 mg ONCE ONCE IV 11/12/17 20:00 11/12/17 20:01 DC 11/12/17 20:14 Ondansetron HCl (Zofran Inj) 4 mg ER BRIDGE PRN IV NAUSEA AND/OR VOMITING 11/12/17 21:00 11/13/17 20:59 Acetaminophen (Tylenol Tab) 650 mg ER BRIDGE PRN PO MILD PAIN/FEVER 11/12/17 21:00 11/13/17 20:59 IV Flush (NS 3 ml) 3 ml PER PROTOCOL IV 11/12/17 21:30 Ondansetron HCl (Zofran Inj) 4 mg Q6H PRN IV NAUSEA AND/OR VOMITING 11/12/17 21:30 Acetaminophen (Tylenol Tab) 650 mg Q6H PRN PO PAIN LEVEL 1-3 OR FEVER 11/12/17 21:30 Docusate Sodium (Colace) 100 mg Q12H PRN PO CONSTIPATION 11/12/17 21:30 Bisacodyl (Dulcolax) 5 mg DAILY PRN PO CONSTIPATION 11/12/17 21:30 Aspirin (Aspirin) 324 mg ONCE ONCE PO 11/12/17 22:00 11/12/17 22:01 DC 11/12/17 21:58 Procedures/MDM Chest pain and shortness of breath with congestive heart failure and patient with very poor ejection fraction. Is given 20 mg of Lasix in the emergency room as well as aspirin. Initial troponin is not significantly elevated. Patient's EKG is paced. The patient ejection fraction is so poor and his symptoms were acute he warrants admission for trending of troponins and careful diuresis. Was given 3 and 25 mg aspirin as well. Saw Dr. Wynn on his last visit. Dr. Archer is admitting. EKG interpretation: Rate of 77, paced rhythm with negative scar boluses criteria. Borderline axis. Chronic monitor interpretation: Paced rhythm is variable below 100 Chest x-ray interpretation: Engorgement of pulmonary vasculature consistent with congestive heart failure, no infiltrates, no fractures, no pneumothorax. Departure Diagnosis: Primary Impression: Chest pain Additional Impression: Acute CHF Condition: Serious CRISTIAN GOEL DO Nov 12, 2017 22:32
[2017-11-12 23:57] VITALS: TEMP 98.9
[2017-11-13] VITALS (11 sets, daily range): BP systolic 107–127; BP diastolic 55–79; PULSE 63–85; RESP 16–21; Ht 177.8 cm; Wt 82.0 kg
[2017-11-13 03:35] LABS: CK-MB 3.49 ng/ml (0.0-2.4); TROPONIN-I 0.036 ng/ml (0.00-0.12)
[2017-11-13] MEDS: GUAIFENESIN/DM (SR) TAB PO SCH ×3 (05:52→20:05)
[2017-11-13 07:34] LABS: BASOPHIL # 0.1 10^3/ul (0.0-0.1); EOSINOPHILS # 0.6 10^3/ul (0.0-0.5); HEMATOCRIT 41.5 % (42.0-52.0); HEMOGLOBIN 13.5 g/dl (14.0-18.0); LYMPHOCYTES % 14.3 % (15.0-51.0); MEAN CORPUSCULAR HEMOGLOBIN 27.7 pg (29.0-33.0); MEAN CORPUSCULAR HGB CONC 32.5 g/dl (32.0-37.0); MEAN PLATELET VOLUME 11.2 fl (7.4-10.4); MONOCYTE # 0.7 10^3/ul (0.3-0.9); MONOCYTES % 9.1 % (0.0-11.0); NEUTROPHIL # 4.9 10^3/ul (1.6-7.5); NEUTROPHILS % 67.3 % (39.0-77.0); PLATELET COUNT 267 10^3/UL (140-415); RED BLOOD COUNT 4.88 10^6/ul (4.70-6.10); RED CELL DISTRIBUTION WIDTH 17.8 % (11.5-14.5); WHITE BLOOD COUNT 7.3 10^3/ul (4.8-10.8)
--- NOTE | 2017-11-13 07:39 | HP ---
Date/Time of Note Date/Time of Note DATE: 11/13/17 TIME: 07:30 Assessment/Plan VTE Prophylaxis VTE Prophylaxis Intervention: SCD's Lines/Catheters IV Catheter Type (from [facility]): Saline Lock Urinary Cath still in place: No Assessment/Plan Chief Complaint/Hosp Course This is a 67-year-old male being admitted to the telemetry floor for: #1 CHF exacerbation: Patient did receive Lasix 40 mg total IV in the ED. Will monitor urine output. Will give an additional dose of Lasix 40 in the a.m. Will order an echocardiogram, though his most recent echo in September showed ejection fraction of 20%. Patient does not appear to be on an MADELYN inhibitor or beta-jm. Will defer this to cardiology. Will monitor urine output and strict I's and O's. Will provide a 1000 cc fluid restriction at this time. Repeat chest x-ray in a.m. #2 Cough: Likely secondary to #1 however patient may have an underlying viral URI. He has afebrile and normal white blood cell count he does feel that there is some mucus coming out. Will provide him some Mucinex at this time. Continue to monitor for any signs of infection. #3 coronary artery disease: Patient is status post CABG in 2013. We will continue patient's aspirin and statin. Patient is not currently on a beta- jm or MADELYN inhibitor. Will defer to cardiology regarding this. Will check an echocardiogram. Patient also has an AICD placed #4 hypertension: Continue to monitor patient is not currently any blood pressure medication. #5 stroke with chronic left-sided weakness: Continue to monitor #6 DVT GI prophylaxis: SCDs, no GI prophylaxis indicated Further treatment strategy will be implemented as per the clinical course Problems: HPI/ROS Admit Date/Time Admit Date/Time Nov 12, 2017 at 20:45 Hx of Present Illness Chief complaint: Chest pain shortness of breath This is a 67-year-old male presents for acute onset chest pain and shortness of breath 2 hours prior to arrival to the ED.. When he arrived at the ED he was having trouble catching his breath.. Chest pain as a pressure-like sensation is substernal and left-sided nonradiating. He states he noticed some mild swelling of his lower extremities. He also reports that he has had a cough but denies any fevers. At times he does notice some clear phlegm. 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 Whitney. Allergies: NKDA Medications: See JAN ROS Const: As per HPI Eyes : No pain discharge or redness or change in visual acuity ENT: No pain, sore throat, congestion, congestion, dysphagia or discharge Respiratory: As per HPI Cardiovascular: As per HPI GI : no change in appetite, abdominal pain, nausea, vomiting, diarrhea, constipation, or change in the color his stool Genitourinary: No dysuria, hematuria, flank pain , discharge or CVA tenderness Musculoskeletal: No joint pain, back pain, neck pain, restricted range of motion in neck or joints Skin: No rash, bruising or hives Neuro: No headache, dizziness, syncope, seizure, focal weakness Endocrine: No polyuria, polydipsia, temperature intolerance Psych: No hallucination, depression, anxiety or suicidal ideation PMH/Family/Social Past Medical History CAD s/p CABG in 2013 and AICD placement, hypertension, stroke with chronic left- sided weakness, no teeth Past Surgical History CABG in 2013, AICD placement, left foot arthrodesis, general surgery Family History Significant Family History: no pertinent family hx Social History Alcohol Use: none Smoking Status: Current every day smoker Drug Use: none Exam/Review of Systems Vital Signs Vitals Vital Signs Date Time Temp Pulse Resp B/P Pulse Ox O2 Delivery O2 Flow Rate FiO2 11/13/17 04:16 97.5 78 18 108/63 94 11/12/17 23:57 Room Air 11/12/17 18:37 2 Intake and Output 11/12/17 11/12/17 11/13/17 15:00 23:00 07:00 Intake Total 500 ml Output Total 400 ml Balance 100 ml Exam Exam General: Patient is sitting up in bed in no acute distress. He does have a runny nose and is coughing occasionally HEENT: Atraumatic, normocephalic. The pupils are equal, round and reactive. Extraocular motor are intact, no teeth Neck: Supple with full range of motion. No rigidity or meningismus Lungs: Mild crackles bilaterally, decreased breath sounds at the left lower lung base, dry cough Heart: Normal S1-S2, Regular rhythm and rate. No murmur, S3, or S4 Abdomen: Soft , nontender, nondistended , bowel sounds are present. No guarding no rebound tenderness , No masses or organomegaly. No costovertebral temporal angle mass Extremities: Trace edema of the bilateral lower extremities at the level of the feet Neurologic: Normal mental status, speech normal, cranial nerves II through XII are intact, motor and sensory are intact, Additional Comments PROCEDURE: XR Chest. CLINICAL INDICATION: Chest pain TECHNIQUE: Single frontal view of the chest was obtained COMPARISON: 08/28/13 FINDINGS: The heart is enlarged. The thoracic aorta is calcified. There is mild pulmonary vascular congestion. There is a moderate left pleural effusion and a small right pleural effusion. There is a left-sided pacemaker / AICD in place. There is no pneumothorax. RPTAT: AA IMPRESSION: Mild cardiomegaly. Mild pulmonary vascular congestion. Moderate left pleural effusion and small right pleural effusion. Calcified aorta consistent with atherosclerotic disease. .Enrico Cordova MD, MD Date Time Electronically viewed and signed by .Enrico Cordova MD, MD on 11/12/2017 18: 10 .S/ CC: NIYAH GOEL Labs Result Diagram: 11/12/17181711/12/171817 Medications Medications Current Medications Ondansetron HCl (Zofran Inj) 4 mg Q6H PRN IV NAUSEA AND/OR VOMITING; Start 11/17 at 21:30 Acetaminophen (Tylenol Tab) 650 mg Q6H PRN PO PAIN LEVEL 1-3 OR FEVER; Start 11/12/17 at 21:30 Docusate Sodium (Colace) 100 mg Q12H PRN PO CONSTIPATION; Start 11/12/17 at 21 :30 Bisacodyl (Dulcolax) 5 mg DAILY PRN PO CONSTIPATION; Start 11/12/17 at 21:30 Guaifenesin/ Dextromethorphan (Mucinex Dm) 1 tab BID PO Last administered on t 05:52; Admin Dose 1 TAB; Start 11/13/17 at 02:00 LOR ROMERO Nov 13, 2017 07:39 LOR ROMERO Nov 13, 2017 07:39
[2017-11-13 07:53] LABS: ALBUMIN 2.8 g/dl (3.3-4.9); ALBUMIN/GLOBULIN RATIO 1.03; BILIRUBIN,INDIRECT 0.6 mg/dl (0-1.1); BILIRUBIN,TOTAL 0.6 mg/dl (0.2-1.3); CALCIUM 8.3 mg/dl (8.4-10.2); CHOL/HDL RATIO 2.8 RATIO; CREATININE 1.13 mg/dl (0.61-1.24); MAGNESIUM 1.8 mg/dl (1.7-2.5); POTASSIUM 4.7 mmol/L (3.5-5.1); TOTAL PROTEIN 5.5 g/dl (6.1-8.1)
[2017-11-13 08:07] LABS: CK-MB 3.85 ng/ml (0.0-2.4)
[2017-11-13 08:08] LABS: TROPONIN-I 0.038 ng/ml (0.00-0.12)
[2017-11-13 08:23] LABS: THYROID STIMULATING HORMONE 1.33 MIU/L (0.465-4.680)
[2017-11-13] MEDS ORDERED: [UNRECOGNIZED DRUG - OTHER] PO SCH (09:00)
[2017-11-13] MEDS: MULTIVITAMINS/MINERALS TAB PO SCH (09:08)
[2017-11-13] MEDS: ATORVASTATIN 80 MG TAB PO SCH (09:08)
[2017-11-13] MEDS: ASPIRIN 81 MG TAB PO SCH (09:08)
--- NOTE | 2017-11-13 09:08 | RADRPT ---
PROCEDURE: XR Chest. CLINICAL INDICATION: Dyspnea. TECHNIQUE: XR CHEST AP PORTABLE COMPARISON: 11/12/2017 FINDINGS: The heart is enlarged. The thoracic aorta is calcified. There is mild pulmonary vascular congestion. There is a stable moderate left pleural effusion and decreased small right pleural effusion. There is a left-sided pacemaker / AICD in place. There is no pneumothorax. IMPRESSION: 1. Mild cardiomegaly. Mild pulmonary vascular congestion. 2. Stable moderate left pleural effusion and decreased small right pleural effusion. 3. Calcified aorta consistent with atherosclerotic disease. RPTAT: JJ .Zachary Ziegler MD, MD Date Time Electronically viewed and signed by .Zachary Ziegler MD, on 11/13/2017 09:08 .A/
[2017-11-13] MEDS ORDERED: FUROSEMIDE 40 MG INJ IV SCH (10:00)
--- NOTE | 2017-11-13 16:15 | CONS ---
Date/Time of Note Date/Time of Note DATE: 11/13/17 TIME: 16:14 Assessment/Plan Assessment/Plan Additional Assessment/Plan 67 yo with CVA, CMY EF 20%, ICD, CHF S- plan for diuresis and med Rx. # [id number] Consultation Date/Type/Reason Admit Date/Time Nov 12, 2017 at 20:45 Initial Consult Date Exam/Review of Systems Vital Signs Vitals Vital Signs Date Time Temp Pulse Resp B/P Pulse Ox O2 Delivery O2 Flow Rate FiO2 11/13/17 16:12 85 11/13/17 15:36 98.4 16 120/61 95 11/12/17 23:57 Room Air 11/12/17 18:37 2 Intake and Output 11/12/17 11/12/17 11/13/17 15:00 23:00 07:00 Intake Total 500 ml Output Total 400 ml Balance 100 ml Results Result Diagram: 11/13/17 0716 11/13/17 0717 Results 24 hrs Laboratory Tests Test 11/12/17 18:18 11/13/17 01:31 11/13/17 07:16 11/13/17 07:17 White Blood Count 6.8 7.3 Red Blood Count 4.74 4.88 Hemoglobin 13.3 L 13.5 L Hematocrit 40.5 L 41.5 L Mean Corpuscular Volume 85.4 85.0 Mean Corpuscular Hemoglobin 28.1 L 27.7 L Mean Corpuscular Hemoglobin Concent 32.8 32.5 Red Cell Distribution Width 17.3 H 17.8 H Platelet Count 273 267 Mean Platelet Volume 10.9 H 11.2 H Neutrophils % 59.6 67.3 Lymphocytes % 18.8 14.3 L Monocytes % 11.3 H 9.1 Eosinophils % 9.1 H 8.0 H Basophils % 0.9 1.0 Nucleated Red Blood Cells % 0.0 0.0 Neutrophils # 4.1 4.9 Lymphocytes # 1.3 1.0 Monocytes # 0.8 0.7 Eosinophils # 0.6 H 0.6 H Basophils # 0.1 0.1 Nucleated Red Blood Cells # 0.0 0.0 Sodium Level 137 138 Potassium Level 4.3 4.7 Chloride Level 107 106 Carbon Dioxide Level 26 26 Anion Gap 8 11 Blood Urea Nitrogen 23 H 26 H Creatinine 1.04 1.13 Glucose Level 84 115 Calcium Level 8.2 L 8.3 L Troponin I 0.030 0.036 0.038 B-Type Natriuretic Peptide 5110 H Creatine Kinase 73 83 Creatine Kinase Index 4.8 4.6 Creatinine Kinase MB (Mass) 3.49 H 3.85 H Hemoglobin A1c 6.2 H Magnesium Level 1.8 Total Bilirubin 0.6 Direct Bilirubin 0.00 Indirect Bilirubin 0.6 Aspartate Amino Transf (AST/SGOT) 37 Alanine Aminotransferase (ALT/SGPT) 57 Alkaline Phosphatase 97 Total Protein 5.5 L Albumin 2.8 L Globulin 2.70 Albumin/Globulin Ratio 1.03 Triglycerides Level 92 Cholesterol Level 96 L LDL Cholesterol, Calculated 44 HDL Cholesterol 34 Cholesterol/HDL Ratio 2.8 Thyroid Stimulating Hormone (TSH) 1.330 Medications Medications Current Medications Ondansetron HCl (Zofran Inj) 4 mg Q6H PRN IV NAUSEA AND/OR VOMITING; Start 11/17 at 21:30 Acetaminophen (Tylenol Tab) 650 mg Q6H PRN PO PAIN LEVEL 1-3 OR FEVER; Start 11/12/17 at 21:30 Docusate Sodium (Colace) 100 mg Q12H PRN PO CONSTIPATION; Start 11/12/17 at 21 :30 Bisacodyl (Dulcolax) 5 mg DAILY PRN PO CONSTIPATION; Start 11/12/17 at 21:30 Guaifenesin/ Dextromethorphan (Mucinex Dm) 1 tab BID PO Last administered on 09:08; Admin Dose 1 TAB; Start 11/13/17 at 02:00 Aspirin (Aspirin) 81 mg DAILY PO Last administered on 11/13/17 09:08; Admin Dose 81 MG; Start 11/13/17 at 09:00 Atorvastatin Calcium (Lipitor) 80 mg DAILY PO Last administered on 11/13/17 09:08; Admin Dose 80 MG; Start 11/13/17 at 09:00 Acetaminophen/ Hydrocodone Bitart ([place] (5/325)) 1 tab Q6H PRN PO PAIN; Start 11/13/17 at 08:00 Multivitamins/ Minerals (Theragran-M) 1 tab DAILY PO Last administered on 11/13 09:08; Admin Dose 1 TAB; Start 11/13/17 at 09:00 ROMINA BUTCHER MD Nov 13, 2017 16:15
[2017-11-13] MEDS: FUROSEMIDE 40 MG INJ IV SCH (17:20)
--- NOTE | 2017-11-13 17:44 | PN ---
Date/Time of Note Date/Time of Note DATE: 11/13/17 TIME: 17:41 Assessment/Plan VTE Prophylaxis VTE Prophylaxis Intervention: LMWH Lines/Catheters IV [facility] Saline Lock Urinary Cath still in place: No Assessment/Plan Chief Complaint/Hosp Course 67 yo male with chronic systolic CHF, CAD presenting with acute systolic CHF exacerbation: Acute systolic CHF exacerbation: - Contiue lasix 40 BID to euvolemia - Start lisinopril 5 - Needs beta jm CAD: - Continue aspirin and statin LMWH Problems: Subjective 24 Hr Interval Summary Free Text/Dictation Diuresing effectively on current dose of lasix Feeling a bit less SOB, still with orthopena Exam/Review of Systems Vital Signs Vitals Vital Signs Date Time Temp Pulse Resp B/P Pulse Ox O2 Delivery O2 Flow Rate FiO2 11/13/17 16:12 85 11/13/17 15:36 98.4 16 120/61 95 11/12/17 23:57 Room Air 11/12/17 18:37 2 Intake and Output 11/12/17 11/12/17 11/13/17 15:00 23:00 07:00 Intake Total 500 ml Output Total 400 ml Balance 100 ml Exam ++ JVD No perihperal edema Resting comfortably Nonlabored Results Result Diagram: 11/13/17 0716 11/13/1717 Results 24 hrs Laboratory Tests Test 11/12/17 18:18 11/13/17 01:31 11/13/17 07:16 11/13/17 07:17 White Blood Count 6.8 7.3 Red Blood Count 4.74 4.88 Hemoglobin 13.3 L 13.5 L Hematocrit 40.5 L 41.5 L Mean Corpuscular Volume 85.4 85.0 Mean Corpuscular Hemoglobin 28.1 L 27.7 L Mean Corpuscular Hemoglobin Concent 32.8 32.5 Red Cell Distribution Width 17.3 H 17.8 H Platelet Count 273 267 Mean Platelet Volume 10.9 H 11.2 H Neutrophils % 59.6 67.3 Lymphocytes % 18.8 14.3 L Monocytes % 11.3 H 9.1 Eosinophils % 9.1 H 8.0 H Basophils % 0.9 1.0 Nucleated Red Blood Cells % 0.0 0.0 Neutrophils # 4.1 4.9 Lymphocytes # 1.3 1.0 Monocytes # 0.8 0.7 Eosinophils # 0.6 H 0.6 H Basophils # 0.1 0.1 Nucleated Red Blood Cells # 0.0 0.0 Sodium Level 137 138 Potassium Level 4.3 4.7 Chloride Level 107 106 Carbon Dioxide Level 26 26 Anion Gap 8 11 Blood Urea Nitrogen 23 H 26 H Creatinine 1.04 1.13 Glucose Level 84 115 Calcium Level 8.2 L 8.3 L Troponin I 0.030 0.036 0.038 B-Type Natriuretic Peptide 5110 H Creatine Kinase 73 83 Creatine Kinase Index 4.8 4.6 Creatinine Kinase MB (Mass) 3.49 H 3.85 H Hemoglobin A1c 6.2 H Magnesium Level 1.8 Total Bilirubin 0.6 Direct Bilirubin 0.00 Indirect Bilirubin 0.6 Aspartate Amino Transf (AST/SGOT) 37 Alanine Aminotransferase (ALT/SGPT) 57 Alkaline Phosphatase 97 Total Protein 5.5 L Albumin 2.8 L Globulin 2.70 Albumin/Globulin Ratio 1.03 Triglycerides Level 92 Cholesterol Level 96 L LDL Cholesterol, Calculated 44 HDL Cholesterol 34 Cholesterol/HDL Ratio 2.8 Thyroid Stimulating Hormone (TSH) 1.330 Medications Medications Current Medications Ondansetron HCl (Zofran Inj) 4 mg Q6H PRN IV NAUSEA AND/OR VOMITING; Start 11/17 at 21:30 Acetaminophen (Tylenol Tab) 650 mg Q6H PRN PO PAIN LEVEL 1-3 OR FEVER; Start 11/12/17 at 21:30 Docusate Sodium (Colace) 100 mg Q12H PRN PO CONSTIPATION; Start 11/12/17 at 21 :30 Bisacodyl (Dulcolax) 5 mg DAILY PRN PO CONSTIPATION; Start 11/12/17 at 21:30 Guaifenesin/ Dextromethorphan (Mucinex Dm) 1 tab BID PO Last administered on 09:08; Admin Dose 1 TAB; Start 11/13/17 at 02:00 Aspirin (Aspirin) 81 mg DAILY PO Last administered on 11/13/17 09:08; Admin Dose 81 MG; Start 11/13/17 at 09:00 Atorvastatin Calcium (Lipitor) 80 mg DAILY PO Last administered on 11/13/17 09:08; Admin Dose 80 MG; Start 11/13/17 at 09:00 Acetaminophen/ Hydrocodone Bitart ([place] (5/325)) 1 tab Q6H PRN PO PAIN; Start 11/13/17 at 08:00 Multivitamins/ Minerals (Theragran-M) 1 tab DAILY PO Last administered on 11/13t 09:08; Admin Dose 1 TAB; Start 11/13/17 at 09:00 LAZARA BATISTA MD Nov 13, 2017 17:43
--- NOTE | 2017-11-13 20:00 | CONS ---
DATE OF ADMISSION: 11/12/2017 DATE OF CONSULTATION: 11/13/2017 CARDIOLOGY CONSULTATION REFERRING PHYSICIAN: Dr. Avalos REASON FOR EVALUATION: CHF, shortness of breath, ICD. HISTORY OF PRESENT ILLNESS: Mr. Miller is a 67-year-old gentleman with history of hypertension, dys lipidemia, history of cardiomyopathy, history of ICD placement, history of CABG in 2013, prior histo ry of CVA, as well as recent stress test in September 2017, which showed ____ disease, who comes to [facility] now for evaluation of acute onset of chest pain and shortness of breath. The patient has several admissions to the emergency department ____ it does not appear that he ruled in for acute m yocardial infarction. His troponin is negative. He does not experience any chest pain at this poin t. For now, we are going to continue medical optimization. There is no indication for another risk stratification now. We will continue to medically manage and diurese the patient as he can tolerat e it. PAST MEDICAL HISTORY: 1. Heart failure with EF of 20%. 2. Cardiomyopathy, ischemic, nonreversible, has history of ICD. 3. History of CABG in 2013. 4. History of CVA. ALLERGIES: NO KNOWN DRUG ALLERGIES. SOCIAL HISTORY: The patient doesn't smoke, doesn't drink, doesn't use drugs now. FAMILY HISTORY: Negative for sudden cardiac or premature coronary artery disease. MEDICATIONS: Here include: 1. Lasix 40 mg IV b.i.d. 2. Aspirin 81 mg p.o. once a day. 3. Lipitor 80 mg p.o. once a day. 4. Multivitamins. 5. Ondansetron. 6. Docusate ____. 7. Dulcolax. REVIEW OF SYSTEMS: CONSTITUTIONAL: No fevers, no chills, no recent weight changes. HEENT: No changes in vision or hearing. CARDIAC: No chest pain reported now. RESPIRATORY: Short of breath, acute on chronic. GASTROINTESTINAL: No nausea, vomiting, diarrhea, constipation. GENITOURINARY: No dysuria, hematuria or difficult urination. NEUROLOGIC: Prior history of CVA. PSYCHIATRIC: History of anxiety. PHYSICAL EXAMINATION: VITAL SIGNS: Temperature is 98.4, heart rate is 80, blood pressure 120/61. GENERAL: He is a thin gentleman in no acute distress, alert and oriented x3, aware of his condition . HEENT: Head is normocephalic, atraumatic. Eyes anicteric. ____. NECK: Supple. JVD 6-7 cm. There is no lymphadenopathy or thyromegaly. ICD site appears to be wel l healed. HEART: Regular with soft holosystolic murmur at the apex. PMI is nondisplaced. LUNGS: Coarse at the bases. ABDOMEN: Distended. Bowel sounds are present. There is no hepatosplenomegaly. GENITOURINARY: Grossly intact. EXTREMITIES: Shows trace edema. LABORATORY DATA: White blood cell count is 7.3, hemoglobin is 13.5, platelets 267. INR is 0.9. So dium 130, potassium 4.7. His BUN is 26, creatinine 1.13. Troponin is negative at 0.036. ASSESSMENT AND PLAN: 1. Cardiomyopathy. The patient with ischemic cardiomyopathy, nonreversible by latest evaluation. Continue medical optimization now. 2. Congestive heart failure, systolic heart failure, acute on chronic. Continue diuresis as tolera jelani. 3. ICD. Patient has history of ICD. We will check in the office. There is no evidence of ICD mal function here. 4. Coronary artery disease. No chest pain reported now. Troponins are negative. No indication fo r further risk stratification at this point. 5. Hypertension. Blood pressure well optimized. 6. History of cerebrovascular accident. Continue to treat the patient expectantly. No further ree valuation required. I would like to thank Dr. Avalos for referring this patient for my evaluation. Dictated By: ROMINA BUTCHER MD ML/NTS Conf#: [id number] DID#: [id number] CC: Robbie; LOR ROMERO MD;*EndCC*
[2017-11-14] VITALS (13 sets, daily range): BP systolic 93–123; BP diastolic 55–74; PULSE 63–166; RESP 16–20
[2017-11-14 03:37] LABS: BASOPHIL # 0.1 10^3/ul (0.0-0.1); BASOPHILS % 0.9 % (0.0-2.0); EOSINOPHILS # 0.7 10^3/ul (0.0-0.5); EOSINOPHILS % 10.5 % (0.0-7.0); HEMATOCRIT 40.6 % (42.0-52.0); HEMOGLOBIN 13.4 g/dl (14.0-18.0); LYMPHOCYTES # 1.2 10^3/ul (0.8-2.9); LYMPHOCYTES % 19.1 % (15.0-51.0); MEAN CORPUSCULAR VOLUME 84.8 fl (82.0-101.0); MEAN PLATELET VOLUME 11.3 fl (7.4-10.4); MONOCYTE # 0.7 10^3/ul (0.3-0.9); MONOCYTES % 11.3 % (0.0-11.0); NEUTROPHIL # 3.7 10^3/ul (1.6-7.5); NEUTROPHILS % 58.2 % (39.0-77.0); PLATELET COUNT 268 10^3/UL (140-415); RED BLOOD COUNT 4.79 10^6/ul (4.70-6.10); WHITE BLOOD COUNT 6.4 10^3/ul (4.8-10.8)
[2017-11-14 04:13] LABS: ALBUMIN 2.4 g/dl (3.3-4.9); ALBUMIN/GLOBULIN RATIO 0.96; BILIRUBIN,INDIRECT 0.4 mg/dl (0-1.1); BILIRUBIN,TOTAL 0.4 mg/dl (0.2-1.3); CALCIUM 8.4 mg/dl (8.4-10.2); CREATININE 1.11 mg/dl (0.61-1.24); POTASSIUM 3.7 mmol/L (3.5-5.1); TOTAL PROTEIN 4.9 g/dl (6.1-8.1)
[2017-11-14] MEDS: FUROSEMIDE 40 MG INJ IV SCH ×2 (06:12→17:33)
[2017-11-14] MEDS: ATORVASTATIN 80 MG TAB PO SCH (08:35)
[2017-11-14] MEDS: MULTIVITAMINS/MINERALS TAB PO SCH (08:35)
[2017-11-14] MEDS: GUAIFENESIN/DM (SR) TAB PO SCH ×2 (08:35→21:36)
[2017-11-14] MEDS: ASPIRIN 81 MG TAB PO SCH (08:35)
--- NOTE | 2017-11-14 10:53 | PN ---
Date/Time of Note Date/Time of Note DATE: 11/14/17 TIME: 10:51 Assessment/Plan VTE Prophylaxis VTE Prophylaxis Intervention: LMWH Lines/Catheters IV [facility]from [facility] Saline Lock Urinary Cath still in place: No Assessment/Plan Chief Complaint/Hosp Course 67 yo male with chronic systolic CHF, CAD s/p CABG presenting with acute systolic CHF exacerbation: Acute systolic CHF exacerbation: - Contiue lasix 40 BID to euvolemia - Start lisinopril 5, Toprol 25 tomorrow CAD: - Continue aspirin and statin LMWH ppx Discharge to self care when euvolemic Problems: Subjective 24 Hr Interval Summary Free Text/Dictation Seems to be diuresing effectively, though unclear output as using toilet No comlaints Exam/Review of Systems Vital Signs Vitals Vital Signs Date Time Temp Pulse Resp B/P Pulse Ox O2 Delivery O2 Flow Rate FiO2 11/14/17 08:39 97.6 78 19 121/74 96 11/12/17 23:57 Room Air 11/12/17 18:37 2 Intake and Output 11/13/17 11/13/17 11/14/17 15:00 23:00 07:00 Intake Total 1080 ml 600 ml Balance 1080 ml 600 ml Exam +++ JVD Breathing nonlabored Comfortable appearing No peripheral edema Results Result Diagram: 11/14/17 0320 11/14/17 0320 Results 24 hrs Laboratory Tests Test 11/14/17 03:20 White Blood Count 6.4 Red Blood Count 4.79 Hemoglobin 13.4 L Hematocrit 40.6 L Mean Corpuscular Volume 84.8 Mean Corpuscular Hemoglobin 28.0 L Mean Corpuscular Hemoglobin Concent 33.0 Red Cell Distribution Width 17.0 H Platelet Count 268 Mean Platelet Volume 11.3 H Neutrophils % 58.2 Lymphocytes % 19.1 Monocytes % 11.3 H Eosinophils % 10.5 H Basophils % 0.9 Nucleated Red Blood Cells % 0.0 Neutrophils # 3.7 Lymphocytes # 1.2 Monocytes # 0.7 Eosinophils # 0.7 H Basophils # 0.1 Nucleated Red Blood Cells # 0.0 Sodium Level 138 Potassium Level 3.7 Chloride Level 104 Carbon Dioxide Level 30 Anion Gap 8 Blood Urea Nitrogen 26 H Creatinine 1.11 Glucose Level 100 Calcium Level 8.4 Magnesium Level 1.8 Total Bilirubin 0.4 Direct Bilirubin 0.00 Indirect Bilirubin 0.4 Aspartate Amino Transf (AST/SGOT) 31 Alanine Aminotransferase (ALT/SGPT) 48 Alkaline Phosphatase 89 Total Protein 4.9 L Albumin 2.4 L Globulin 2.50 Albumin/Globulin Ratio 0.96 Medications Medications Current Medications Ondansetron HCl (Zofran Inj) 4 mg Q6H PRN IV NAUSEA AND/OR VOMITING; Start 11/17 at 21:30 Acetaminophen (Tylenol Tab) 650 mg Q6H PRN PO PAIN LEVEL 1-3 OR FEVER; Start 11/12/17 at 21:30 Docusate Sodium (Colace) 100 mg Q12H PRN PO CONSTIPATION; Start 11/12/17 at 21 :30 Bisacodyl (Dulcolax) 5 mg DAILY PRN PO CONSTIPATION; Start 11/12/17 at 21:30 Guaifenesin/ Dextromethorphan (Mucinex Dm) 1 tab BID PO Last administered on 08:35; Admin Dose 1 TAB; Start 11/13/17 at 02:00 Aspirin (Aspirin) 81 mg DAILY PO Last administered on 11/14/17 08:35; Admin Dose 81 MG; Start 11/13/17 at 09:00 Atorvastatin Calcium (Lipitor) 80 mg DAILY PO Last administered on 11/14/17 08:35; Admin Dose 80 MG; Start 11/13/17 at 09:00 Acetaminophen/ Hydrocodone Bitart ([place] (5/325)) 1 tab Q6H PRN PO PAIN; Start 11/13/17 at 08:00 Multivitamins/ Minerals (Theragran-M) 1 tab DAILY PO Last administered on 11/14 08:35; Admin Dose 1 TAB; Start 11/13/17 at 09:00 Lisinopril (Zestril) 5 mg DAILY NGT ; Start 11/14/17 at 11:00; Status UNV Metoprolol Succinate (Toprol Xl) 25 mg DAILY PO ; Start 11/15/17 at 09:00; Status UNV LAZARA BATISTA MD Nov 14, 2017 10:53
--- NOTE | 2017-11-14 14:01 | CONS ---
Date/Time of Note Date/Time of Note DATE: 11/14/17 TIME: 14:00 Assessment/Plan Assessment/Plan Additional Assessment/Plan 1. Cardiomyopathy. The patient with ischemic cardiomyopathy, nonreversible by latest evaluation. Continue medical optimization now. No CP now. 2. Congestive heart failure, systolic heart failure, acute on chronic. Continue diuresis as tolerated. BETTER NOW. 3. ICD. Patient has history of ICD. We will check in the office. There is no evidence of ICD malfunction here. 4. Coronary artery disease. No chest pain reported now. Troponins are negative. No indication for further risk stratification at this point. 5. Hypertension. Blood pressure well optimized. 6. History of cerebrovascular accident. Continue to treat the patient expectantly. No further reevaluation required. STABLE. Consultation Date/Type/Reason Admit Date/Time Nov 12, 2017 at 20:45 24 HR Interval Summary Free Text/Dictation NO acute events - BP in good range - no CP now - will monitor clinically. ROS: No fever, no chills, no nausea, no vomiting, no diarrhea/constipation No recent weight changes No chest pain, no PND, no orthopnea No dizziness, blurred vision No thirst, no heat or cold intolerance Exam/Review of Systems Vital Signs Vitals Vital Signs Date Time Temp Pulse Resp B/P Pulse Ox O2 Delivery O2 Flow Rate FiO2 11/14/17 12:41 87 11/14/17 12:03 98.7 20 123/56 95 11/12/17 23:57 Room Air 11/12/17 18:37 2 Intake and Output 11/13/17 11/13/17 11/14/17 15:00 23:00 07:00 Intake Total 1080 ml 600 ml Balance 1080 ml 600 ml Exam General: WN/WD/NAD, AOx 3 HEENT: Unicetric/atraumatic/EOMI ( follow commands) NECK: JVD elevated, no thyromegaly Lymph: no lymphadenopathy HEART: regular with no S3, II/ systolic murmur at apex, ICD LUNGS: Coarse sounds ABD: soft, NT, ND, +BS : Intact Neuro: h/o CVA SKIN: chronic changes EXT: trace edema Results Result Diagram: 11/14/17 0320 11/14/17 0320 Results 24 hrs Laboratory Tests Test 11/14/17 03:20 White Blood Count 6.4 Red Blood Count 4.79 Hemoglobin 13.4 L Hematocrit 40.6 L Mean Corpuscular Volume 84.8 Mean Corpuscular Hemoglobin 28.0 L Mean Corpuscular Hemoglobin Concent 33.0 Red Cell Distribution Width 17.0 H Platelet Count 268 Mean Platelet Volume 11.3 H Neutrophils % 58.2 Lymphocytes % 19.1 Monocytes % 11.3 H Eosinophils % 10.5 H Basophils % 0.9 Nucleated Red Blood Cells % 0.0 Neutrophils # 3.7 Lymphocytes # 1.2 Monocytes # 0.7 Eosinophils # 0.7 H Basophils # 0.1 Nucleated Red Blood Cells # 0.0 Sodium Level 138 Potassium Level 3.7 Chloride Level 104 Carbon Dioxide Level 30 Anion Gap 8 Blood Urea Nitrogen 26 H Creatinine 1.11 Glucose Level 100 Calcium Level 8.4 Magnesium Level 1.8 Total Bilirubin 0.4 Direct Bilirubin 0.00 Indirect Bilirubin 0.4 Aspartate Amino Transf (AST/SGOT) 31 Alanine Aminotransferase (ALT/SGPT) 48 Alkaline Phosphatase 89 Total Protein 4.9 L Albumin 2.4 L Globulin 2.50 Albumin/Globulin Ratio 0.96 Medications Medications Current Medications Ondansetron HCl (Zofran Inj) 4 mg Q6H PRN IV NAUSEA AND/OR VOMITING; Start 11/17 at 21:30 Acetaminophen (Tylenol Tab) 650 mg Q6H PRN PO PAIN LEVEL 1-3 OR FEVER; Start 11/12/17 at 21:30 Docusate Sodium (Colace) 100 mg Q12H PRN PO CONSTIPATION; Start 11/12/17 at 21 :30 Bisacodyl (Dulcolax) 5 mg DAILY PRN PO CONSTIPATION; Start 11/12/17 at 21:30 Guaifenesin/ Dextromethorphan (Mucinex Dm) 1 tab BID PO Last administered on 08:35; Admin Dose 1 TAB; Start 11/13/17 at 02:00 Aspirin (Aspirin) 81 mg DAILY PO Last administered on 11/14/17 08:35; Admin Dose 81 MG; Start 11/13/17 at 09:00 Atorvastatin Calcium (Lipitor) 80 mg DAILY PO Last administered on 11/14/17 08:35; Admin Dose 80 MG; Start 11/13/17 at 09:00 Acetaminophen/ Hydrocodone Bitart ([place] (5/325)) 1 tab Q6H PRN PO PAIN; Start 11/13/17 at 08:00 Multivitamins/ Minerals (Theragran-M) 1 tab DAILY PO Last administered on 11/14t 08:35; Admin Dose 1 TAB; Start 11/13/17 at 09:00 Lisinopril (Zestril) 5 mg DAILY PO ; Start 11/14/17 at 11:00 Metoprolol Succinate (Toprol Xl) 25 mg DAILY PO ; Start 11/15/17 at 09:00 ROMINA BUTCHER MD Nov 14, 2017 14:01
[2017-11-14] MEDS: LISINOPRIL 5 MG TAB PO SCH (14:19)
[2017-11-15] VITALS (12 sets, daily range): BP systolic 102–124; BP diastolic 53–74; PULSE 60–79; RESP 18–20
[2017-11-15] MEDS: FUROSEMIDE 40 MG INJ IV SCH (05:14)
[2017-11-15] MEDS: MULTIVITAMINS/MINERALS TAB PO SCH (09:31)
[2017-11-15] MEDS: ATORVASTATIN 80 MG TAB PO SCH (09:31)
[2017-11-15] MEDS: LISINOPRIL 5 MG TAB PO SCH (09:31)
[2017-11-15] MEDS: GUAIFENESIN/DM (SR) TAB PO SCH ×2 (09:31→20:16)
[2017-11-15] MEDS: METOPROLOL (XL) 25 MG TAB PO SCH (09:32)
[2017-11-15] MEDS: ASPIRIN 81 MG TAB PO SCH (09:32)
[2017-11-15 11:07] LABS: CALCIUM 8.7 mg/dl (8.4-10.2); CREATININE 1.26 mg/dl (0.61-1.24); MAGNESIUM 1.9 mg/dl (1.7-2.5); POTASSIUM 4.2 mmol/L (3.5-5.1)
--- NOTE | 2017-11-15 15:07 | PN ---
Date/Time of Note Date/Time of Note DATE: 11/15/17 TIME: 15:06 Assessment/Plan VTE Prophylaxis VTE Prophylaxis Intervention: LMWH Lines/Catheters IV Catheter Type (from Nrs): Saline Lock Urinary Cath still in place: No Assessment/Plan Chief Complaint/Hosp Course 67 yo male with chronic systolic CHF, CAD s/p CABG presenting with acute systolic CHF exacerbation: Acute systolic CHF exacerbation: - Contiue lasix 40 BID, approaching euvolemia. Convert to PO tomorrow and discharge - Start lisinopril 5, Toprol 25 tomorrow CAD: - Continue aspirin and statin LMWH ppx Discharge to self care likely tomorrow Problems: Subjective 24 Hr Interval Summary Free Text/Dictation Seems to be diuresing well, though outputs not recorded Exam/Review of Systems Vital Signs Vitals Vital Signs Date Time Temp Pulse Resp B/P Pulse Ox O2 Delivery O2 Flow Rate FiO2 11/15/17 12:09 79 11/15/17 12:03 98.0 20 124/72 96 11/12/17 23:57 Room Air 11/12/17 18:37 2 Intake and Output 11/14/17 11/14/17 11/15/17 15:00 23:00 07:00 Intake Total 800 ml 700 ml Balance 800 ml 700 ml Exam JVD improving Appears comfortable RRR Breathign comfortably Results Result Diagram: 11/14/17 0320 11/15/17 0951 Results 24 hrs Laboratory Tests Test 11/15/17 09:51 Sodium Level 138 Potassium Level 4.2 Chloride Level 98 Carbon Dioxide Level 34 H Anion Gap 10 Blood Urea Nitrogen 33 H Creatinine 1.26 H Glucose Level 91 Calcium Level 8.7 Magnesium Level 1.9 Medications Medications Current Medications Ondansetron HCl (Zofran Inj) 4 mg Q6H PRN IV NAUSEA AND/OR VOMITING; Start 11/17 at 21:30 Acetaminophen (Tylenol Tab) 650 mg Q6H PRN PO PAIN LEVEL 1-3 OR FEVER; Start 11/12/17 at 21:30 Docusate Sodium (Colace) 100 mg Q12H PRN PO CONSTIPATION; Start 11/12/17 at 21 :30 Bisacodyl (Dulcolax) 5 mg DAILY PRN PO CONSTIPATION; Start 11/12/17 at 21:30 Guaifenesin/ Dextromethorphan (Mucinex Dm) 1 tab BID PO Last administered on 09:31; Admin Dose 1 TAB; Start 11/13/17 at 02:00 Aspirin (Aspirin) 81 mg DAILY PO Last administered on 11/15/17 09:32; Admin Dose 81 MG; Start 11/13/17 at 09:00 Atorvastatin Calcium (Lipitor) 80 mg DAILY PO Last administered on 11/15/17 09:31; Admin Dose 80 MG; Start 11/13/17 at 09:00 Acetaminophen/ Hydrocodone Bitart ([place] (5/325)) 1 tab Q6H PRN PO PAIN; Start 11/13/17 at 08:00 Multivitamins/ Minerals (Theragran-M) 1 tab DAILY PO Last administered on 11/15 09:31; Admin Dose 1 TAB; Start 11/13/17 at 09:00 Lisinopril (Zestril) 5 mg DAILY PO Last administered on 11/15/17 09:31; Admin Dose 5 MG; Start 11/14/17 at 11:00 Metoprolol Succinate (Toprol Xl) 25 mg DAILY PO Last administered on 09:32; Admin Dose 25 MG; Start 11/15/17 at 09:00 LAZARA BATISTA MD Nov 15, 2017 15:07
--- NOTE | 2017-11-15 17:15 | CONS ---
Date/Time of Note Date/Time of Note DATE: 11/15/17 TIME: 17:06 Assessment/Plan Assessment/Plan Chief Complaint/Hosp Course IMP: 1.CHF-systolic acute on chronic 2.cardiomyopathy 20% 3.H/O ICD 4.h/o cad RecC: -Tele -serial ecg's -Contineu BB/ACEI/statin -add aldactone -Continue lasix but will decrease to daily given increasing creatnine -Follow volume status clsoely Problems: Consultation Date/Type/Reason Admit Date/Time Nov 12, 2017 at 20:45 Initial Consult Date 11/13/2017 Type of Consultation: cardiology Reason for Consultation CHF Referring Provider: LOR ROMERO Exam/Review of Systems Vital Signs Vitals Vital Signs Date Time Temp Pulse Resp B/P Pulse Ox O2 Delivery O2 Flow Rate FiO2 11/15/17 16:03 72 11/15/17 15:58 98.0 20 113/74 97 11/12/17 23:57 Room Air 11/12/17 18:37 2 Intake and Output 11/14/17 11/14/17 11/15/17 15:00 23:00 07:00 Intake Total 800 ml 700 ml Balance 800 ml 700 ml Exam Review of Systems: CONSTITUTIONAL: No fevers, chills. PULMONARY: No sob CARDIOVASCULAR: No chest pain/palpitations GASTROINTESTINAL: No nausea/vomiting. GENITOURINARY: No hematuria/dysuria. MUSCULOSKELETAL: No myagias/arthalgias. PSYCHIATRIC: The patient denies depression. NEUROLOGIC: No weakness Constitutional: alert Psych: no complaints Head: normocephalic ENMT: mucosa pink and moist Neck: jvd (9cm water), supple Respiratory: diminished breath sounds (at bases/B) Cardiovascular: regular rate and rhythm Gastrointestinal: non-tender, soft Musculoskeletal: muscle tone (normal) Extremities: edema (none) Neurological: other (No focal deficits) Results Result Diagram: 11/14/17 0320 11/15/17 0951 Results 24 hrs Laboratory Tests Test 11/15/17 09:51 Sodium Level 138 Potassium Level 4.2 Chloride Level 98 Carbon Dioxide Level 34 H Anion Gap 10 Blood Urea Nitrogen 33 H Creatinine 1.26 H Glucose Level 91 Calcium Level 8.7 Magnesium Level 1.9 Medications Medications Current Medications Ondansetron HCl (Zofran Inj) 4 mg Q6H PRN IV NAUSEA AND/OR VOMITING; Start 11/17 at 21:30 Acetaminophen (Tylenol Tab) 650 mg Q6H PRN PO PAIN LEVEL 1-3 OR FEVER; Start 11/12/17 at 21:30 Docusate Sodium (Colace) 100 mg Q12H PRN PO CONSTIPATION; Start 11/12/17 at 21 :30 Bisacodyl (Dulcolax) 5 mg DAILY PRN PO CONSTIPATION; Start 11/12/17 at 21:30 Guaifenesin/ Dextromethorphan (Mucinex Dm) 1 tab BID PO Last administered on 09:31; Admin Dose 1 TAB; Start 11/13/17 at 02:00 Aspirin (Aspirin) 81 mg DAILY PO Last administered on 11/15/17 09:32; Admin Dose 81 MG; Start 11/13/17 at 09:00 Atorvastatin Calcium (Lipitor) 80 mg DAILY PO Last administered on 11/15/17 09:31; Admin Dose 80 MG; Start 11/13/17 at 09:00 Acetaminophen/ Hydrocodone Bitart ([place] (5/325)) 1 tab Q6H PRN PO PAIN; Start 11/13/17 at 08:00 Multivitamins/ Minerals (Theragran-M) 1 tab DAILY PO Last administered on 11/15 09:31; Admin Dose 1 TAB; Start 11/13/17 at 09:00 Lisinopril (Zestril) 5 mg DAILY PO Last administered on 11/15/17 09:31; Admin Dose 5 MG; Start 11/14/17 at 11:00 Metoprolol Succinate (Toprol Xl) 25 mg DAILY PO Last administered on 09:32; Admin Dose 25 MG; Start 11/15/17 at 09:00 OTIS HORAN Nov 15, 2017 17:15
[2017-11-15] MEDS: HYDROCODONE/APAP (5/325) TAB PO PRN (20:17)
[2017-11-16 00:02] VITALS: BP 113/78; RESP 18
[2017-11-16 00:13] VITALS: PULSE 65
[2017-11-16] MEDS: HYDROCODONE/APAP (5/325) TAB PO PRN (00:59)
[2017-11-16 04:00] VITALS: BP 101/66; RESP 18
[2017-11-16 04:07] VITALS: PULSE 67
[2017-11-16 08:08] VITALS: PULSE 65
[2017-11-16 08:20] VITALS: BP 97/55; RESP 19
[2017-11-16] MEDS ORDERED: FUROSEMIDE 40 MG INJ IV SCH (09:00)
[2017-11-16] MEDS: ASPIRIN 81 MG TAB PO SCH (09:56)
[2017-11-16] MEDS: MULTIVITAMINS/MINERALS TAB PO SCH (09:56)
[2017-11-16] MEDS: ATORVASTATIN 80 MG TAB PO SCH (09:57)
[2017-11-16] MEDS: GUAIFENESIN/DM (SR) TAB PO SCH (09:57)
[2017-11-16] MEDS: METOPROLOL (XL) 25 MG TAB PO SCH (10:00)
[2017-11-16] MEDS: LISINOPRIL 5 MG TAB PO SCH (10:00)
[2017-11-16] MEDS ORDERED: LISI-313 PO (10:28)
[2017-11-16] MEDS ORDERED: FURO40TA4 PO (10:28)
[2017-11-16] MEDS ORDERED: METO-335 PO (10:28)
--- NOTE | 2017-11-16 10:29 | PDOCDIS ---
Discharge Instructions DIAGNOSIS Discharge Diagnosis Acute systolic CHF exacerbation CONDITION Patient Condition: Fair HOME CARE INSTRUCTIONS: Diet Instructions: Reduced SodiumSpecial Diet: CARDIAC DIET. FOLLOW UP/APPOINTMENTS Follow-up Plan It is very important to take your medications as prescribed You have been prescribed 40 mg lasix to take daily. It is very important to monitor your weight and your breathing symptoms as you will always be prone to retaining fluid. It is vital that you have your blood work checked within the next 1-2 weeks while you take this medication Return to the hospital if you have any concerning symptoms LAZARA BATISTA MD Nov 16, 2017 10:29
--- NOTE | 2017-11-16 10:30 | DS ---
Date/Time of Note Date/Time of Note DATE: 11/16/17 TIME: 10:30 Discharge Summary Admission/Discharge Info Admit Date/Time Nov 12, 2017 at 20:45 Discharge Date/Time Discharge Diagnosis Acute systolic CHF exacerbation Patient Condition: Fair Hospital Course 67 yo male with chronic systolic CHF, CAD s/p CABG presenting with acute systolic CHF exacerbation: The pateint was found to be in decompenstated CHF. He was treated with IV lasix. Lisinopirl and Toprol were added to his medciations. He was diuresed to euvolemia and discharged to further care as an outpatient with Dr Wynn. Home Meds Active Scripts Hydrocodone/Acetaminophen ([place] 5-325 Tablet) 1 Each Tablet, 1 TAB PO Q6H Y for PAIN, #20 TAB Prov:NATHEN RUCKER MD 10/19/17 Reported Medications Multivits,Ca,Min/Iron/FA/Lycop (Centrum Men's Tablet) 1 Each Tablet, 1 EACH PO DAILY, TAB 11/12/17 Aspirin* (Aspirin* Chew) 81 Mg Tab.chew, 81 MG PO DAILY, TAB.CHEW 11/12/17 Atorvastatin* (Atorvastatin*) 80 Mg Tablet, 80 MG PO DAILY, #30 TAB 11/12/17 Follow-up Plan It is very important to take your medications as prescribed You have been prescribed 40 mg lasix to take daily. It is very important to monitor your weight and your breathing symptoms as you will always be prone to retaining fluid. It is vital that you have your blood work checked within the next 1-2 weeks while you take this medication Return to the hospital if you have any concerning symptoms Primary Care Provider Care Physician LAZARA Alanis MD Nov 16, 2017 10:30
--- NOTE | 2017-11-16 11:58 | CONS ---
Date/Time of Note Date/Time of Note DATE: 11/16/17 TIME: 11:56 Assessment/Plan Assessment/Plan Additional Assessment/Plan 1. Cardiomyopathy. The patient with ischemic cardiomyopathy, nonreversible by latest evaluation. Continue medical optimization now. No CP now. BETTER NOW, dispo planned. 2. Congestive heart failure, systolic heart failure, acute on chronic. Continue diuresis as tolerated. BETTER NOW. 3. ICD. Patient has history of ICD. We will check in the office. There is no evidence of ICD malfunction here. Will follow in the office. 4. Coronary artery disease. No chest pain reported now. Troponins are negative. No indication for further risk stratification at this point. 5. Hypertension. Blood pressure well optimized. 6. History of cerebrovascular accident. Continue to treat the patient expectantly. No further reevaluation required. STABLE. Consultation Date/Type/Reason Admit Date/Time Nov 12, 2017 at 20:45 Type of Consultation: cardiology Referring Provider: LOR ROMERO 24 HR Interval Summary Free Text/Dictation Pt better now - dispo planned. ROS: No fever, no chills, no nausea, no vomiting, no diarrhea/constipation No recent weight changes No chest pain, no PND, no orthopnea No dizziness, blurred vision No thirst, no heat or cold intolerance Exam/Review of Systems Vital Signs Vitals Vital Signs Date Time Temp Pulse Resp B/P Pulse Ox O2 Delivery O2 Flow Rate FiO2 11/16/17 08:20 97.5 80 19 97/55 94 11/12/17 23:57 Room Air 11/12/17 18:37 2 Intake and Output 11/15/17 11/15/17 11/16/17 15:00 23:00 07:00 Intake Total 900 ml 1000 ml Balance 900 ml 1000 ml Exam General: WN/WD/NAD, AOx 3 HEENT: Unicetric/atraumatic/EOMI (does not follow commands) NECK: JVD elevated, no thyromegaly Lymph: no lymphadenopathy HEART: regular with no S3, II/ systolic murmur at apex, PMI L LUNGS: Coarse sounds ABD: soft, NT, ND, +BS : Intact Neuro: h/o CVA SKIN: chronic changes EXT: trace edema Results Result Diagram: 11/14/17 0320 11/15/17 0951 Medications Medications Current Medications Ondansetron HCl (Zofran Inj) 4 mg Q6H PRN IV NAUSEA AND/OR VOMITING; Start 11/17 at 21:30 Acetaminophen (Tylenol Tab) 650 mg Q6H PRN PO PAIN LEVEL 1-3 OR FEVER; Start 11/12/17 at 21:30 Docusate Sodium (Colace) 100 mg Q12H PRN PO CONSTIPATION; Start 11/12/17 at 21 :30 Bisacodyl (Dulcolax) 5 mg DAILY PRN PO CONSTIPATION; Start 11/12/17 at 21:30 Guaifenesin/ Dextromethorphan (Mucinex Dm) 1 tab BID PO Last administered on 09:57; Admin Dose 1 TAB; Start 11/13/17 at 02:00 Aspirin (Aspirin) 81 mg DAILY PO Last administered on 11/16/17 09:56; Admin Dose 81 MG; Start 11/13/17 at 09:00 Atorvastatin Calcium (Lipitor) 80 mg DAILY PO Last administered on 11/16/17 09:57; Admin Dose 80 MG; Start 11/13/17 at 09:00 Acetaminophen/ Hydrocodone Bitart ([place] (5/325)) 1 tab Q6H PRN PO PAIN Last administered on 11/16/17 00:59; Admin Dose 1 TAB; Start 11/13/17 at 08:00 Multivitamins/ Minerals (Theragran-M) 1 tab DAILY PO Last administered on 11/16 09:56; Admin Dose 1 TAB; Start 11/13/17 at 09:00 Lisinopril (Zestril) 5 mg DAILY PO Last administered on 11/16/17 10:00; Admin Dose 5 MG; Start 11/14/17 at 11:00 Metoprolol Succinate (Toprol Xl) 25 mg DAILY PO Last administered on 10:00; Admin Dose 25 MG; Start 11/15/17 at 09:00 Furosemide (Lasix) 40 mg DAILY IV Last administered on 11/16/17 09:59; Admin Dose 40 MG; Start 11/16/17 at 09:00 ROMINA BUTCHER MD Nov 16, 2017 11:58
--- NOTE | 2017-11-16 15:36 | RADRPT ---
PROCEDURE: XR Chest. CLINICAL INDICATION: Congestive heart failure, chest pain. TECHNIQUE: Single frontal view of the chest was obtained COMPARISON: Chest radiograph dated August 28, 2013. FINDINGS: AICD device overlying the left chest wall. Median sternotomy wires are present. The heart is enlarged. There is a small to moderate left pleural effusion. Mild pulmonary vascular congestion is present. N o evidence of pneumothorax. Degenerative changes of the spine and shoulder joints are present. IMPRESSION: 1. Mild pulmonary vascular congestion with a small to moderate left pleural effusion. RPTAT:AAJJ Physician Ramesh Date Time Electronically viewed and signed by Physician Ramesh on 11/16/2017 15:35 QL/
== END 2017-11-16 11:52 | disposition home or self-care (01) | DRG 292 ==
LOC: E/R 17:29 → MS4 20:45
PROVIDERS: ADMIT Family Medicine; ATTEND Family Medicine
DX: I11.0 Hypertensive heart disease with heart failure (principal); I69.354 Hemiplegia and hemiparesis following cerebral infarction affecting left non-dominant side; Z95.1 Presence of aortocoronary bypass graft; I25.10 Atherosclerotic heart disease of native coronary artery without angina pectoris; I50.23 Acute on chronic systolic (congestive) heart failure; I25.5 Ischemic cardiomyopathy; Z95.810 Presence of automatic (implantable) cardiac defibrillator
CPT/HCPCS: 36415; 71010; 80048; 80053; 80061; 82550; 82553; 83036; 83735; 83880; 84443; 84484; 85025; 93005; 96374; J1940

== ENCOUNTER 2019-05-12 15:05 | Emergency (ER) | payer MEDICARE, MEDICAID ==
[~2019-05-12] VITALS: Ht 177.8 cm; Wt 80.4 kg
[~2019-05-12 15:05] MED LIST changes: +ALBU18HF INHALATION; +ASPI-903 PO; +ATOR-2 PO; +CARV3.1260 PO; +FURO40TA4 PO; +GUAI120S25 PO; +HYDR-4011 PO; -HYDR-906 PO; +LISI-313 PO; +METO-335 PO; +MULT-861 PO; +NITR0.4T39 SL; +SACU1TAB PO
[2019-05-12 15:06] VITALS: Ht 177.8 cm; Wt 80.4 kg
--- NOTE | 2019-05-12 18:50 | ERD ---
ER Documentation Chief Complaint Chief Complaint TAVERAS,WEAKNESS, DIZZINESS HPI The patient is a 67-year-old male, presenting to the ER because of headache, fatigue, nausea because he has been on the street for many hours with heat. He denies syncope, near syncope, neck pain, chest pain, dyspnea, abdominal pain, vomiting, dysuria, diarrhea. He is homeless, smokes socially, denies any street drugs Past medical history: History of systolic CHF, CAD, hypertension Past surgical history: CABG, pacemaker, left ankle ROS All systems reviewed and are negative except as per history of present illness. Medications Home Meds Active Scripts Albuterol Sulfate* (Ventolin HFA*) 18 Gm Hfa.aer.ad, 2 PUFF INHALATION Q4H, #1 INHALER Prov:CRISTIAN GOEL DO 12/12/17 Metoprolol Succinate* (Toprol XL*) 25 Mg Tab.sr.24h, 25 MG PO DAILY for 30 Days, #30 TAB Prov:LAZARA BATISTA MD 11/16/17 Furosemide* (Furosemide*) 40 Mg Tablet, 40 MG PO DAILY for 30 Days, #30 TAB Prov:LAZARA BATISTA MD 11/16/17 Lisinopril* (Lisinopril*) 5 Mg Tablet, 5 MG PO DAILY for 30 Days, #30 TAB Prov:LAZARA BATISTA MD 11/16/17 Hydrocodone/Acetaminophen ([place] 5-325 Tablet) 1 Each Tablet, 1 TAB PO Q6H PRN for PAIN, #20 TAB Prov:NATHEN RUCKER MD 10/19/17 Reported Medications Carvedilol* (Carvedilol*) 3.125 Mg Tablet, 3.125 MG PO BID, #60 TAB 01/24/18 Sacubitril/Valsartan (Entresto 24 mg-26 mg Tablet) 1 Each Tablet, 1 EACH PO, TAB 01/24/18 Zyhbtnbssbz-H-Advfvnkqme Hb* (Guaifenesin* DM Syrup) 120 Ml Syrup, 10 ML PO Q4H PRN for COUGH, ML 01/24/18 Nitroglycerin* (Nitrostat*) 0.4 Mg Tab.subl, 0.4 MG SL Q5MIN PRN for CHEST PAIN, BOTTLE 01/24/18 Multivits,Ca,Min/Iron/FA/Lycop (Centrum Men's Tablet) 1 Each Tablet, 1 EACH PO DAILY, TAB 11/12/17 Aspirin* (Aspirin* Chew) 81 Mg Tab.chew, 81 MG PO DAILY, TAB.CHEW 11/12/17 Atorvastatin* (Atorvastatin*) 80 Mg Tablet, 80 MG PO DAILY, #30 TAB 11/12/17 Allergies Allergies: Coded Allergies: No Known Drug Allergies (Verified Allergy, Unknown, 11/12/17) PMhx/Soc History of Surgery: Yes (CABG, PACEMAKER, LEFT ANKLE, TONSILLECTOMY, ) Anesthesia Reaction: No Hx Neurological Disorder: No Hx Respiratory Disorders: Yes (PNA, COPD,) Hx Cardiac Disorders: Yes (CHF, HTN,) Hx Psychiatric Problems: No Hx Miscellaneous Medical Probl: Yes (ANXIETY) Hx Alcohol Use: Yes (SOCIALLY) Hx Substance Use: No Hx Tobacco Use: Yes Physical Exam Vitals Vital Signs Date Temp Pulse Resp B/P (MAP) Pulse Ox O2 O2 Flow FiO2 Time Delivery Rate 05/12/19 98.8 79 18 120/64 95 15:06 (82) Physical Exam Const: No acute distress. Head: Atraumatic. Eyes: Normal Conjunctiva. ENT: Normal External Ears, Nose and Mouth. Neck: Full range of motion. No meningismus. Resp: Clear to auscultation bilaterally. Cardio: Regular rate and rhythm. Abd: Soft, non distended, normal bowel sounds, non tender. Skin: No petechiae or rashes. Back: No midline or flank tenderness. Ext: No cyanosis, or edema. Neur: Awake and alert. No focal deficit Psych: Normal Mood and Affect. Result Diagram: 05/12/19193905/12/191939 Results 24 hrs Laboratory Tests Test 05/12/19 19:40 White Blood Count 7.3 10^3/ul Red Blood Count 5.01 10^6/ul Hemoglobin 12.9 g/dl Hematocrit 42.2 % Mean Corpuscular Volume 84.2 fl Mean Corpuscular Hemoglobin 25.7 pg Mean Corpuscular Hemoglobin Concent 30.6 g/dl Red Cell Distribution Width 18.6 % Platelet Count 292 10^3/UL Mean Platelet Volume 10.6 fl Immature Granulocytes % 0.300 % Neutrophils % 65.5 % Lymphocytes % 16.9 % Monocytes % 9.5 % Eosinophils % 6.7 % Basophils % 1.1 % Nucleated Red Blood Cells % 0.0 /100WBC Immature Granulocytes # 0.020 10^3/ul Neutrophils # 4.8 10^3/ul Lymphocytes # 1.2 10^3/ul Monocytes # 0.7 10^3/ul Eosinophils # 0.5 10^3/ul Basophils # 0.1 10^3/ul Nucleated Red Blood Cells # 0.0 10^3/ul Sodium Level 143 mmol/L Potassium Level 4.3 mmol/L Chloride Level 106 mmol/L Carbon Dioxide Level 31 mmol/L Anion Gap 6 Blood Urea Nitrogen 28 mg/dl Creatinine 1.34 mg/dl Est Glomerular Filtrat Rate mL/min 53 mL/min Glucose Level 93 mg/dl Calcium Level 8.8 mg/dl Current Medications Medications Dose Sig/Jones Start Time Status Last (Trade) Ordered Route PRN Stop Time Admin Dose Reason Admin 650 mg ONCE ONCE 05/12/19 DC 05/12/19 Acetaminophen PO 19:30 20:11 (Tylenol 05/12/19 19:31 Tab) Sodium 500 ml @ Q1H ONCE 05/12/19 Chloride 500 mls/hr IV 21:00 05/12/19 21:59 Procedures/MDM EKG: Read by emergency physician Rate/Rhythm: Normal Sinus Rhythm 78 beats/min QRS, ST, T-waves: No ST elevation, nonspecific intraventricular block, lateral Q waves, anterior T abnormality Impression: Abnormal EKG MEDICAL MAKING DECISION: The patient is a 69-year-old male, presenting to the ER because of acute mild dehydration after being the heat for many hours. He was treated with normal saline 500 mL IV for acute dehydration, he was given a meal to eat and he was able to tolerate the meal well. The differential diagnoses considered include but are not limited to heat exhaustion, dehydration, electrolyte imbalance Departure Diagnosis: Primary Impression: Dehydration Additional Impression: Anemia Condition: Good Comments I discussed the findings with the patient. I advised the patient to follow-up with the primary physician in about 2-3 days, sooner if needed and return if any concern. I have provided a medical screening exam and evaluation. Referral to outpatient behavioral health for follow up is [not indicated .] The patient is clinically stable for discharge. I have communicated after-visit instructions and plan to the patient. Because patient has been identified as without residence, the hospital policy and process for discharge requirements have been initiated by appropriate hospital staff. Disclaimer: Inadvertent spelling and grammatical errors are likely due to EHR/dictation software use and do not reflect on the overall quality of patient care. Also, please note that the electronic time recorded on this note does not necessarily reflect the actual time of the patient encounter. SYEDA KERR MD May 12, 2019 18:50
[2019-05-12] MEDS ORDERED: ACETAMINOPHEN 325 MG TAB PO ONE (19:30)
[2019-05-12 20:54] VITALS: BP 137/79; PULSE 82; RESP 14
[2019-05-12] MEDS ORDERED: SOD CHLORIDE 0.9% 500 ML IV ONE (21:00)
== END 2019-05-12 20:54 | disposition home or self-care (01) ==
LOC: E/R 15:05
DX: E86.0 Dehydration (principal); D64.9 Anemia, unspecified; I10 Essential (primary) hypertension; I50.9 Heart failure, unspecified; J44.9 Chronic obstructive pulmonary disease, unspecified; I25.10 Atherosclerotic heart disease of native coronary artery without angina pectoris; Z79.82 Long term (current) use of aspirin; Z95.1 Presence of aortocoronary bypass graft; Z95.0 Presence of cardiac pacemaker; Z87.891 Personal history of nicotine dependence
CPT/HCPCS: 36415; 80048; 85025; 93005; J7040

== ENCOUNTER 2019-05-19 21:38 | Emergency (ER) | payer MEDICAID, MEDICARE ==
[~2019-05-19] VITALS: Ht 177.8 cm; Wt 78.0 kg
[2019-05-19 21:54] VITALS: BP 126/57; PULSE 98; RESP 19; Ht 177.8 cm; Wt 78.0 kg
== END 2019-05-20 00:14 | disposition left against medical advice (07) ==
LOC: E/R 21:38
DX: Z53.21 Procedure and treatment not carried out due to patient leaving prior to being seen by health care provider (principal)

== ENCOUNTER 2019-05-28 12:52 | Observation (INO) | payer MEDICARE, MEDICAID ==
[~2019-05-28] VITALS: Ht 177.8 cm; Wt 84.9 kg
[2019-05-28 12:55] VITALS: Ht 177.8 cm; Wt 84.9 kg
[2019-05-28] MEDS ORDERED: NITROGLYCERIN 2% 1 GM OINT PKT TD STA (13:06)
[2019-05-28] MEDS ORDERED: NITROGLYCERIN (SL) 0.4 MG TAB SL PRN ×2 (13:30→17:00)
[2019-05-28] MEDS ORDERED: ASPI-817 PO (14:30)
[2019-05-28] MEDS ORDERED: ONDANSETRON 4 MG INJ IV PRN ×2 (14:30→17:00)
[2019-05-28] MEDS ORDERED: ACETAMINOPHEN 325 MG TAB PO PRN ×2 (14:30→21:30)
[2019-05-28] MEDS ORDERED: ATOR-2 PO (14:31)
[2019-05-28] MEDS ORDERED: FURO40TA4 PO (14:31)
[2019-05-28] MEDS ORDERED: CARV6.2579 PO (14:32)
[2019-05-28] MEDS ORDERED: LISI-313 PO (14:32)
[2019-05-28] MEDS ORDERED: DULO30CA47 PO (14:33)
[2019-05-28] MEDS ORDERED: QUET50TA22 PO (14:33)
[2019-05-28] MEDS ORDERED: SACU1TAB PO (14:33)
[2019-05-28] MEDS ORDERED: ACET-141 PO (14:34)
--- NOTE | 2019-05-28 14:44 | ERD ---
ER Documentation Chief Complaint Chief Complaint R89, fr md office, substernal chest pain x2days, given 324 aspirin, nitrox1 HPI Patient is a 69-year-old male with coronary disease and hypertension who presents with chest pain. The patient was brought in by ambulance. He was given aspirin and nitroglycerin by paramedics. He said the pain started 2 days ago and waxes and wanes in intensity. The pain is now a 4 out of 10. Upon review of old medical records the patient has multiple visits to the ER for various complaints. Review of the emergency department information exchange system shows visits to 3 separate emergency departments for a total of 6 visits over the past 1 year. He does not remember the name of his primary doctor. ROS All systems reviewed and are negative except as per history of present illness. Medications Home Meds Reported Medications Acetaminophen* (Acetaminophen*) 500 MG Extra Strength Tablet, 500 MG PO Q6H PRN for PAIN AND OR ELEVATED TEMP, TAB 05/28/19 Duloxetine Hcl* (Duloxetine Hcl*) 30 Mg Capsule.dr, 30 MG PO DAILY, #30 CAP 05/28/19 Quetiapine Fumarate* (Quetiapine Fumarate*) 50 Mg Tablet, 50 MG PO HS, TAB 05/28/19 Sacubitril/Valsartan (Entresto 24 mg-26 mg Tablet) 1 Each Tablet, 1 EACH PO BID, TAB 05/28/19 Lisinopril* (Lisinopril*) 5 Mg Tablet, 5 MG PO DAILY, #30 TAB 05/28/19 Carvedilol* (Carvedilol*) 6.25 Mg Tablet, 6.25 MG PO BID, #60 TAB 05/28/19 Furosemide* (Furosemide*) 40 Mg Tablet, 40 MG PO BID, TAB 05/28/19 Atorvastatin* (Atorvastatin*) 80 Mg Tablet, 80 MG PO QHS, #30 TAB 05/28/19 Aspirin* (Aspirin* EC) 81 Mg Tablet.dr, 81 MG PO DAILY, TAB 05/28/19 Discontinued Reported Medications Carvedilol* (Carvedilol*) 3.125 Mg Tablet, 3.125 MG PO BID, #60 TAB 01/24/18 Sacubitril/Valsartan (Entresto 24 mg-26 mg Tablet) 1 Each Tablet, 1 EACH PO, TAB 01/24/18 Wziaufqwnpg-N-Esynjvmeme Hb* (Guaifenesin* DM Syrup) 120 Ml Syrup, 10 ML PO Q4H PRN for COUGH, ML 01/24/18 Nitroglycerin* (Nitrostat*) 0.4 Mg Tab.subl, 0.4 MG SL Q5MIN PRN for CHEST PAIN, BOTTLE 01/24/18 Multivits,Ca,Min/Iron/FA/Lycop (Centrum Men's Tablet) 1 Each Tablet, 1 EACH PO DAILY, TAB 11/12/17 Aspirin* (Aspirin* Chew) 81 Mg Tab.chew, 81 MG PO DAILY, TAB.CHEW 11/12/17 Atorvastatin* (Atorvastatin*) 80 Mg Tablet, 80 MG PO DAILY, #30 TAB 11/12/17 Discontinued Scripts Albuterol Sulfate* (Ventolin HFA*) 18 Gm Hfa.aer.ad, 2 PUFF INHALATION Q4H, #1 INHALER Prov:CRISTIAN GOEL DO 12/12/17 Metoprolol Succinate* (Toprol XL*) 25 Mg Tab.sr.24h, 25 MG PO DAILY for 30 Days, #30 TAB Prov:LAZARA BATISTA MD 11/16/17 Furosemide* (Furosemide*) 40 Mg Tablet, 40 MG PO DAILY for 30 Days, #30 TAB Prov:LAZARA BATISTA MD 11/16/17 Lisinopril* (Lisinopril*) 5 Mg Tablet, 5 MG PO DAILY for 30 Days, #30 TAB Prov:LAZARA BATISTA MD 11/16/17 Hydrocodone/Acetaminophen ([place] 5-325 Tablet) 1 Each Tablet, 1 TAB PO Q6H PRN for PAIN, #20 TAB Prov:NATHEN RUCKER MD 10/19/17 Allergies Allergies: Coded Allergies: No Known Drug Allergies (Verified Allergy, Unknown, 05/28/19) PMhx/Soc History of Surgery: Yes (CABG, PACEMAKER, LEFT ANKLE, TONSILLECTOMY, ) Anesthesia Reaction: No Hx Neurological Disorder: No Hx Respiratory Disorders: Yes (PNA, COPD,) Hx Cardiac Disorders: Yes (CHF, HTN,) Hx Psychiatric Problems: No Hx Miscellaneous Medical Probl: Yes (ANXIETY, Hx of Stroke (left side weakness)) Hx Alcohol Use: Yes Hx Substance Use: Yes Hx Tobacco Use: Yes Smoking Status: Current every day smoker FmHx Adopted and does not know family history Physical Exam Vitals Vital Signs Date Temp Pulse Resp B/P (MAP) Pulse Ox O2 O2 Flow FiO2 Time Delivery Rate 05/28/19 71 22 120/69 96 Room Air 14:18 (86) 05/28/19 74 22 110/63 99 Room Air 13:59 (79) 05/28/19 98.2 70 18 96/67 (77) 97 12:55 Physical Exam Const: No acute distress Head: Atraumatic Eyes: Normal Conjunctiva ENT: Normal External Ears, Nose and Mouth. Neck: Full range of motion. No meningismus. Resp: Clear to auscultation bilaterally Cardio: Regular rate and rhythm, no murmurs Abd: Soft, non tender, non distended. Normal bowel sounds Skin: No petechiae or rashes Back: No midline or flank tenderness Ext: No cyanosis, or edema Neur: Awake and alert Psych: Normal Mood and Affect Result Diagram: 05/28/19 1309 05/28/19 1309 Results 24 hrs Laboratory Tests Test 05/28/19 13:09 White Blood Count 7.2 10^3/ul Red Blood Count 4.49 10^6/ul Hemoglobin 11.6 g/dl Hematocrit 37.1 % Mean Corpuscular Volume 82.6 fl Mean Corpuscular Hemoglobin 25.8 pg Mean Corpuscular Hemoglobin Concent 31.3 g/dl Red Cell Distribution Width 17.9 % Platelet Count 212 10^3/UL Mean Platelet Volume 10.9 fl Immature Granulocytes % 0.400 % Neutrophils % 66.8 % Lymphocytes % 13.3 % Monocytes % 12.1 % Eosinophils % 6.4 % Basophils % 1.0 % Nucleated Red Blood Cells % 0.0 /100WBC Immature Granulocytes # 0.030 10^3/ul Neutrophils # 4.8 10^3/ul Lymphocytes # 1.0 10^3/ul Monocytes # 0.9 10^3/ul Eosinophils # 0.5 10^3/ul Basophils # 0.1 10^3/ul Nucleated Red Blood Cells # 0.0 10^3/ul Sodium Level 138 mmol/L Potassium Level 5.0 mmol/L Chloride Level 108 mmol/L Carbon Dioxide Level 26 mmol/L Anion Gap 4 Blood Urea Nitrogen 28 mg/dl Creatinine 0.99 mg/dl Est Glomerular Filtrat Rate mL/min > 60 mL/min Glucose Level 128 mg/dl Calcium Level 8.2 mg/dl Troponin I 0.020 ng/ml Current Medications Medications Dose Sig/Jones Start Time Status Last (Trade) Ordered Route PRN Stop Time Admin Dose Reason Admin 1 inch ONCE STAT 05/28/19 DC 05/28/19 Nitroglycerin TD 13:06 14:36 05/28/19 13:07 (Nitroglyceri n 2% Oint) 1 tab Q5M UP TO 3 05/28/19 Nitroglycerin DOSES PRN 13:30 SL .CHEST (Nitroglyceri PAIN n (Sl Tab) 0.4 Mg) Ondansetron 4 mg ER BRIDGE 05/28/19 HCl (Zofran PRN IV 14:30 Inj) NAUSEA/VOMITI 05/29/19 14:29 NG 650 mg ER BRIDGE 05/28/19 Acetaminophen PRN PO 14:30 (Tylenol .MILD PAIN 05/29/19 14:29 Tab) 1-3 OR TEMP Procedures/MDM Smoking Cessation Therapy: Pt. was lectured for greater than 3 minutes on the health risks of continued smoking and the benefits of cessation. EKG #1 read by me: Rate/Rhythm: Paced rhythm at a regular rate Intervals: Normal Impression: Paced rhythm with negative Sgarbossa criteria EKG #2 read by me: Rate/Rhythm: Paced rhythm at a regular rate Intervals: Normal Impression: Paced rhythm with negative Sgarbossa criteria Chest X-ray 1V Interpreted by me: Soft Tissue: No acute abnormalities Bones: No acute abnormalities Mediastinum/Cardiac Silhouette/Lungs: Pacer in place, left-sided pleural effusion Patient is a 69-year-old male with multiple cardiac risk factors who presents with chest pain. The patient was given aspirin and nitroglycerin. I am concerned about possible acute coronary syndrome. I doubt pneumonia, pneumothorax, pulmonary embolism, or aortic dissection. The patient will be admitted to the care of the panel team to a telemetry observation bed. Initial troponin is 0.020 which is within normal limits. Departure Diagnosis: Primary Impression: Chest pain Chest pain type: unspecified Qualified Codes: R07.9 - Chest pain, unspecified Condition: KADE Mayer MD May 28, 2019 14:44
--- NOTE | 2019-05-28 16:21 | HP ---
Date/Time of Note Date/Time of Note DATE: 05/28/19 TIME: 16:16 Assessment/Plan VTE Prophylaxis Pharmacological prophylaxis: LMWH Lines/Catheters IV [facility]ter Type [facility]from [facility] Saline Lock Assessment/Plan Hospital Course 69-year-old male with comorbidities including hypertension, CAD status post CABG, ischemic cardiomyopathy status post AICD placement, COPD, nicotine use, and stroke who presented to the emergency room with chief complaint of chest pa in and will be admitted inpatient setting for further treatment and evaluation. 1. Chest pain. Known history of CAD. Will rule out ACS. Obtain serial troponins. Continue aspirin. Obtain 2D echocardiogram to evaluate left ventricular ejection fraction. 2. CHF exacerbation. Acute on chronic systolic dysfunction. Continue diuretics. 3. COPD. Start the patient on inhaled bronchodilators (RADHA and LABA). 4. Hypertension. Resume antihypertensives. 5. Dyslipidemia. Continue statins. 6. Nicotine use. Cessation advised. Nicotine patch if has symptoms of withdrawal. 7. Normocytic anemia. Most probably anemia chronic disease. Monitor H&H closely. 8. Homelessness. Obtain social work consult. Plan: The patient will be admitted to inpatient telemetry floor. The patient will be started on a low-cholesterol diet. The patient will be started on DVT prophylaxis. The patient will remain a full code. Activities will be as tolerated. The rest of the patient's management will be based on the clinical course, inputs from consultants, and the results of diagnostic studies. Based on the patient's clinical presentation, he most probably requires at least 2 midnights' stay for further management and evaluation of his clinical presentation. The patient was seen in collaboration with Dr. Sepulveda. Result Diagram: 05/28/19 1309 05/28/19 1309 Results 24hrs Laboratory Tests Test 05/28/19 13:09 White Blood Count 7.2 Red Blood Count 4.49 L Hemoglobin 11.6 L Hematocrit 37.1 L Mean Corpuscular Volume 82.6 Mean Corpuscular Hemoglobin 25.8 L Mean Corpuscular Hemoglobin Concent 31.3 L Red Cell Distribution Width 17.9 H Platelet Count 212 # Mean Platelet Volume 10.9 H Immature Granulocytes % 0.400 Neutrophils % 66.8 Lymphocytes % 13.3 L Monocytes % 12.1 H Eosinophils % 6.4 Basophils % 1.0 Nucleated Red Blood Cells % 0.0 Immature Granulocytes # 0.030 Neutrophils # 4.8 Lymphocytes # 1.0 Monocytes # 0.9 Eosinophils # 0.5 Basophils # 0.1 Nucleated Red Blood Cells # 0.0 Sodium Level 138 Potassium Level 5.0 Chloride Level 108 Carbon Dioxide Level 26 Anion Gap 4 L Blood Urea Nitrogen 28 H Creatinine 0.99 Est Glomerular Filtrat Rate mL/min > 60 Glucose Level 128 Calcium Level 8.2 L Troponin I 0.020 HPI/ROS Admit Date/Time Admit Date/Time Hx of Present Illness Reason for admission: Chest pain. Consultants 1. Adam Wynn MD, Cardiology. This is a 69-year-old male with past medical history of hypertension, CAD status post coronary artery bypass grafting, ischemic cardiomyopathy status post AICD placement, COPD, nicotine use, stroke, and homelessness. 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 The office staff called the ambulance and was transferred to emergency room. The patient verbalized that he has been having 8-10 out of 10 chest pain. He was also complaining of dyspnea and fatigue. The patient continues to smoke despite his multiple comorbidities. The patient is homeless. The patient denied any fevers or chills. He denied any nausea or diaphoresis. He denied any syncope or presyncope. In the emergency room, the patient's troponin was negative. The patient was treated with transdermal nitroglycerin in the ER. ROS Constitutional: fatigue Eyes: no complaints ENT: no complaints Respiratory: cough, shortness of breath Cardiovascular: chest pain Gastrointestinal: no complaints Genitourinary: no complaints Musculoskeletal: no complaints Skin: no complaints Neurologic: dizziness Endocrine: no complaints Lymphatic: no complaints Psychological: no complaints Immunologic: no complaints PMH/Family/Social Past Medical History 1. Hypertension. 2. CAD, status post CABG. 3. Ischemic cardiomyopathy. 4. COPD. 5. Nicotine use. 6. Stroke. 7. Dyslipidemia. 8. Homelessness. Medications Current Medications Nitroglycerin (Nitroglycerin (Sl Tab) 0.4 Mg) 1 tab Q5M UP TO 3 DOSES PRN SL .CHEST PAIN; Start 05/28/19 at 13:30 Ondansetron HCl (Zofran Inj) 4 mg ER BRIDGE PRN IV NAUSEA/VOMITING; Start 05/28/19 at 14:30; Stop 05/29/19 at 14:29 Acetaminophen (Tylenol Tab) 650 mg ER BRIDGE PRN PO .MILD PAIN 1-3 OR TEMP; Start 05/28/19 at 14:30; Stop 05/29/19 at 14:29 Coded Allergies: No Known Drug Allergies (Verified Allergy, Unknown, 05/28/19) Past Surgical History 1. CABG. 2. AICD placement. 3. Tonsillectomy. 4. Left ankle surgery. Past Surgical Hx: coronary bypass surgery, other (AICD placement.) Family History Significant Family History: no pertinent family hx Social History Alcohol Use: sober (A member of AA.) Smoking Status: Current every day smoker Drug Use: other (Prior polysubstance abuser. Now a member of Narcotics Anonymous) Exam/Review of Systems Vital Signs Vitals Vital Signs Date Temp Pulse Resp B/P (MAP) Pulse Ox O2 O2 Flow FiO2 Time Delivery Rate 05/28/19 98.1 67 22 133/69 96 Room Air 16:00 (90) Exam Exam General: Adequately build 69 year-old male lying in bed in mild respiratory distress. HEENT: Normocephalic, atraumatic. Eyes: Anicteric sclerae, conjunctivae clear. ENT: Nasal septum midline, oral mucosa moist. Poor dentition. Neck supple, JVD noticed. Respiratory: Bilaterally diminished breath sounds. Minimal use of accessory muscles of respiration. Bilateral expiratory wheezing. Cardiovascular: S1, S2 heard. Regular rate and rhythm. Abdomen: Soft, nontender, and nondistended. Bowel sounds positive in all 4 quadrants. Genitourinary: Deferred. Extremities: No cyanosis, no clubbing. Bilateral pedal edema. Peripheral pulses palpable. Neurologic: Cranial nerves II through XII grossly intact. The patient is awake, alert, and oriented. Respiratory: wheezing Additional Comments CXR IMPRESSION: Pulmonary vascular congestion/edema with small right and moderate left pleural effusions. Cardiomegaly. Aortic atherosclerosis. Left biventricular AICD. EVER FITZPATRICK NP May 28, 2019 16:21
[2019-05-28 17:00] VITALS: BP 120/63; PULSE 76; RESP 18
[2019-05-28] MEDS ORDERED: FUROSEMIDE 20 MG INJ IV ONE (17:00)
[2019-05-28] MEDS ORDERED: NACL 0.9% 3 ML SYG IV SCH (17:00)
[2019-05-28 19:16] VITALS: BP 150/67; PULSE 81; RESP 18
--- NOTE | 2019-05-28 19:48 | CONS ---
DATE OF ADMISSION: 05/28/2019 DATE OF CONSULTATION: 05/28/2019 REASON FOR CONSULTATION: Chest pain, assess for acute coronary syndrome. REQUESTING PHYSICIAN: Luis Alfredo Greene from the hospitalist service. HISTORY OF PRESENT ILLNESS: Mr. Miller is a 69-year-old male with a history of systolic congestive h eart failure, last known EF approximately 20%, prior ICD, coronary artery disease, status post terry ry artery bypass graft surgery in 2013, hypertension, dyslipidemia, psych disorder, ongoing tobacco u lucy, who presented with complaints of chest pain, describes a chest tightness while walking with gen eralized fatigue, dyspnea on exertion, and plus/minus symptoms of orthopnea. Upon arrival, temperatu re 98.2, blood pressure 96/67, pulse 70, respiratory rate 18, satting 97%. The patient's labs reveal ed a white blood cell count of 7.2, hemoglobin 11.6, platelet count of 212. Sodium 138, potassium 5. 0, creatinine 0.99, BUN 28, troponin negative, BNP of 7350, calcium 8.2, hemoglobin A1c of 5.8. The patient's chest x-ray revealed pulmonary vascular congestion, edema with small right and moderate lef t pleural effusion. Biventricular ICD. The patient's electrocardiogram revealed a ventricular paced rhythm, atrial sensed at a rate of 63. The patient has been admitted to the floor and since admit t o the floor, continues to have chest tightness, shortness of breath. PAST MEDICAL HISTORY: As above in HPI. MEDICATIONS CURRENTLY IN HOSPITAL: 1. Aspirin 81 mg daily. 2. Lovenox 40 mg IV daily. 3. Lipitor 80 mg at bedtime. 4. Carvedilol 6.25 mg p.o. b.i.d. 5. Entresto 1 tab p.o. b.i.d. 6. DuoNeb. 7. Zofran. 8. Nitroglycerin p.r.n. 9. Aspirin 81 mg daily. 10. Cymbalta 30 mg daily. ALLERGIES: NO KNOWN DRUG ALLERGIES. SOCIAL HISTORY: Positive tobacco, social ETOH. Denies illicit drug use. FAMILY HISTORY: No history of sudden cardiac or early CAD. REVIEW OF SYSTEMS: As above in HPI. CONSTITUTIONAL: No fevers, chills. PULMONARY: Shortness of breath. CARDIOVASCULAR: Chest pain, cardiomyopathy, congestive heart failure. GASTROINTESTINAL: No vomiting. GENITOURINARY: No hematuria. MUSCULOSKELETAL: Degenerative joint disease. PSYCHIATRIC: Positive psych history. NEUROLOGIC: No documented history of CVA. ENDOCRINE: No documented history of diabetes mellitus. PHYSICAL EXAMINATION: VITAL SIGNS: Temperature of 97.9, blood pressure 120/63, pulse 76, respiration rate 18, satting 96%. GENERAL: The patient is alert, awake, complaining of shortness of breath and chest pain. NECK: JVP approximately 9 cm water. CHEST: Mild decreased breath sounds throughout. Mild expiratory wheezing. HEART: Regular rate and rhythm. Normal S1, increased S2, I/ systolic murmur, laterally displaced PMI. ABDOMEN: Positive bowel sounds, soft. EXTREMITIES: Only trace edema at the ankles, low level of the malleolus, somewhat difficult to palpa te distal pulses bilateral posterior tibial, dorsalis pedis. LABORATORY DATA: As above in HPI. No further labs for my review at this time. IMAGING STUDIES: As above in HPI. No further imaging studies for my review at this time. ECG: As above in HPI. No further electrograms for my review at this time. IMPRESSION: 1. Chest pain, assess for acute coronary syndrome. 2. Cardiomyopathy with decreased left ventricular ejection fraction, last EF approximately 20% by ec ho. 3. Congestive heart failure, systolic, acute on chronic. 4. Hypertension, under reasonable control. 5. Dyslipidemia. 6. Ongoing tobacco usage, tobacco dependence. 7. Anemia, mild. 8. Psychiatric disorder. RECOMMENDATIONS: 1. At this time, we would maintain patient on telemetry monitoring to follow rhythm and rate control closely. 2. Complete the patient's rule out for myocardial infarction to ensure the patient's constellation o f symptoms is not a result of acute coronary syndrome versus acute myocardial infarction. 3. We will continue the patient's current beta jm and will change to beta 1 selective beta bloc ker, Toprol-XL, to assure not causing any increased bronchospasm and increased shortness of breath. I would like to continue the patient's Entresto at this time and continue the patient's Lasix which I will make b.i.d., following creatinine closely. 4. Continue patient's aspirin for prophylaxis against cardiovascular events. Continue the patient's statin and adjust it accordingly to a fasting lipid panel as checked. 5. Give patient sublingual nitroglycerin for recurrent chest pain and if patient ruled out for myoca rdial infarction would consider stress testing this patient to further assess possibility of recurren t significant obstructive coronary artery disease given the symptoms of chest pain, decreased EF, isa rtness of breath. Additionally, reassess the patient's ejection fraction with 2D echo during this ad mission. Thank you for allowing me to take part in the care of this patient. I will continue to follow along very closely with you with further recommendations will be made as the patient progresses through his inpatient hospital clinical course. Dictated By: OTIS HENAO/CRISTOBAL Conf#: [id number] DID#: [id number] CC: LAZARA BATISTA MD; LUIS ALFREDO GREENE NP;*[facility]*
[2019-05-28] MEDS ORDERED: ARFORMOTEROL TARTRATE 15MCG/2 ML AMP NEB SCH (20:00)
[2019-05-28] MEDS ORDERED: ALBUTEROL/IPRATROPIUM (NEB) 3 ML AMP HHN SCH (20:00)
[2019-05-28] MEDS ORDERED: FUROSEMIDE 40 MG TAB PO SCH (21:00)
[2019-05-28] MEDS ORDERED: ATORVASTATIN 80 MG TAB PO SCH (21:00)
[2019-05-28] MEDS ORDERED: METOPROLOL (XL) 25 MG TAB PO SCH (21:00)
[2019-05-28] MEDS ORDERED: SACUBITRIL/VALSARTAN (24mg-26mg) TABLET PO SCH (21:00)
[2019-05-28] MEDS ORDERED: ASPIRIN (EC) 81 MG TAB PO ONE (22:00)
--- NOTE | 2019-05-29 07:12 | DS ---
Date/Time of Note Date/Time of Note DATE: 05/29/19 TIME: 07:12 Discharge Summary Admission/Discharge Info Admit Date/Time May 28, 2019 at 14:20 Discharge Date/Time May 28, 2019 at 22:35 Left AGAINST MEDICAL ADVICE Discharge Diagnosis 1. Chest pain. 2. CHF exacerbation. Acute on chronic systolic dysfunction. 3. COPD. 4. Hypertension. 5. Dyslipidemia. 6. Nicotine use. 7. Normocytic anemia. 8. Homelessness. Patient Condition: Guarded Consults Adam Wynn MD, Cardiology. Procedures CXR IMPRESSION: Pulmonary vascular congestion/edema with small right and moderate left pleural effusions. Cardiomegaly. Aortic atherosclerosis. Left biventricular AICD. Hx of Present Illness Reason for admission: Chest pain. Consultants 1. Adam Wynn MD, Cardiology. This is a 69-year-old male with past medical history of hypertension, CAD status post coronary artery bypass grafting, ischemic cardiomyopathy status post AICD placement, COPD, nicotine use, stroke, and homelessness. The patient went to his human resources generalist's office because of chest pain. The office staff called the ambulance and was transferred to emergency room. The patient verbalized that he has been having 8-10 out of 10 chest pain. He was also complaining of dyspnea and fatigue. The patient continues to smoke despite his multiple comorbidities. The patient is homeless. The patient denied any fevers or chills. He denied any nausea or diaphoresis. He denied any syncope or presyncope. In the emergency room, the patient's troponin was negative. The patient was treated with transdermal nitroglycerin in the ER. Hospital Course The patient was admitted to inpatient setting. A cardiology consult was obtained. Patient was maintained on aspirin. Serial troponins were ordered. 2D echocardiogram was ordered. The patient also had underlying CHF exacerbation, acute on chronic systolic dysfunction. The patient was maintained on diuretics. He had evidence of COPD. He was started on inhaled bronchodilators (RADHA and LABA). He was maintained on antihypertensives for his underlying history of hypertension. He was maintained on statins for his underlying dyslipidemia. Cardiology evaluated the patient and was in the process of ruling out underlying ACS. On 05/28/2019, towards late night, the patient became agitated and stated he wanted to leave the hospital. The patient was informed about the consequences of leaving the hospital AGAINST MEDICAL ADVICE including the possibility of . Nevertheless, the patient left the hospital after signing the AMA paper. No follow-up plan could be confirmed since the patient left the hospital AGAINST MEDICAL ADVICE. At this time I would like to thank Dr. Wynn for seeing the patient. The patient was seen in collaboration with Dr. Sepulveda. Home Meds Reported Medications Acetaminophen* (Acetaminophen*) 500 MG Extra Strength Tablet, 500 MG PO Q6H PRN for PAIN AND OR ELEVATED TEMP, TAB 05/28/19 Duloxetine Hcl* (Duloxetine Hcl*) 30 Mg Capsule.dr, 30 MG PO DAILY, #30 CAP 05/28/19 Quetiapine Fumarate* (Quetiapine Fumarate*) 50 Mg Tablet, 50 MG PO HS, TAB 05/28/19 Sacubitril/Valsartan (Entresto 24 mg-26 mg Tablet) 1 Each Tablet, 1 EACH PO BID, TAB 05/28/19 Carvedilol* (Carvedilol*) 6.25 Mg Tablet, 6.25 MG PO BID, #60 TAB 05/28/19 Furosemide* (Furosemide*) 40 Mg Tablet, 40 MG PO BID, TAB 05/28/19 Atorvastatin* (Atorvastatin*) 80 Mg Tablet, 80 MG PO QHS, #30 TAB 05/28/19 Aspirin* (Aspirin* EC) 81 Mg Tablet.dr, 81 MG PO DAILY, TAB 05/28/19 Discontinued Reported Medications Lisinopril* (Lisinopril*) 5 Mg Tablet, 5 MG PO DAILY, #30 TAB 05/28/19 Carvedilol* (Carvedilol*) 3.125 Mg Tablet, 3.125 MG PO BID, #60 TAB 01/24/18 Sacubitril/Valsartan (Entresto 24 mg-26 mg Tablet) 1 Each Tablet, 1 EACH PO, TAB 01/24/18 Ltlmvtxcecy-H-Igjfwoicnq Hb* (Guaifenesin* DM Syrup) 120 Ml Syrup, 10 ML PO Q4H PRN for COUGH, ML 01/24/18 Nitroglycerin* (Nitrostat*) 0.4 Mg Tab.subl, 0.4 MG SL Q5MIN PRN for CHEST PAIN, BOTTLE 01/24/18 Multivits,Ca,Min/Iron/FA/Lycop (Centrum Men's Tablet) 1 Each Tablet, 1 EACH PO DAILY, TAB 11/12/17 Aspirin* (Aspirin* Chew) 81 Mg Tab.chew, 81 MG PO DAILY, TAB.CHEW 11/12/17 Atorvastatin* (Atorvastatin*) 80 Mg Tablet, 80 MG PO DAILY, #30 TAB 11/12/17 Discontinued Scripts Albuterol Sulfate* (Ventolin HFA*) 18 Gm Hfa.aer.ad, 2 PUFF INHALATION Q4H, #1 INHALER Prov:CRISTIAN GOEL DO 12/12/17 Metoprolol Succinate* (Toprol XL*) 25 Mg Tab.sr.24h, 25 MG PO DAILY for 30 Days, #30 TAB Prov:LAZARA SEPULVEDA MD 11/16/17 Furosemide* (Furosemide*) 40 Mg Tablet, 40 MG PO DAILY for 30 Days, #30 TAB Prov:LAZARA SEPULVEDA MD 11/16/17 Lisinopril* (Lisinopril*) 5 Mg Tablet, 5 MG PO DAILY for 30 Days, #30 TAB Prov:LAZARA SEPULVEDA MD 11/16/17 Hydrocodone/Acetaminophen ([place] 5-325 Tablet) 1 Each Tablet, 1 TAB PO Q6H PRN for PAIN, #20 TAB Prov:NATHEN RUCKER MD 10/19/17 Primary Care Provider Care Physician No Primary Time spent on discharge: < 30 minutes Pending Labs Laboratory Tests Test 05/28/19 13:09 05/28/19 19:41 White Blood Count 7.2 10^3/ul (4.8-10.8) Red Blood Count 4.49 10^6/ul (4.70-6.10) Hemoglobin 11.6 g/dl (14.0-18.0) Hematocrit 37.1 % (42.0-52.0) Mean Corpuscular Volume 82.6 fl (82.0-101.0) Mean Corpuscular 25.8 pg (29.0-33.0) Hemoglobin Mean Corpuscular 31.3 g/dl (32.0-37.0) Hemoglobin Concent Red Cell Distribution 17.9 % (11.5-14.5) Width Platelet Count 212 10^3/UL (140-415) Mean Platelet Volume 10.9 fl (7.4-10.4) Immature Granulocytes % 0.400 % (0.001-0.429) Neutrophils % 66.8 % (39.0-77.0) Lymphocytes % 13.3 % (15.0-51.0) Monocytes % 12.1 % (0.0-11.0) Eosinophils % 6.4 % (0.0-7.0) Basophils % 1.0 % (0.0-2.0) Nucleated Red Blood Cells 0.0 /100WBC (0.0-0.0) % Immature Granulocytes # 0.030 10^3/ul (0.0-0.031) Neutrophils # 4.8 10^3/ul (1.6-7.5) Lymphocytes # 1.0 10^3/ul (0.8-2.9) Monocytes # 0.9 10^3/ul (0.3-0.9) Eosinophils # 0.5 10^3/ul (0.0-0.5) Basophils # 0.1 10^3/ul (0.0-0.1) Nucleated Red Blood Cells 0.0 10^3/ul (0.0-0.0) # Sodium Level 138 mmol/L (135-144) Potassium Level 5.0 mmol/L (3.5-5.1) Chloride Level 108 mmol/L (97-110) Carbon Dioxide Level 26 mmol/L (21-31) Anion Gap 4 (5-13) Blood Urea Nitrogen 28 mg/dl (7-20) Creatinine 0.99 mg/dl (0.61-1.24) Est Glomerular Filtrat > 60 mL/min (>60) Rate mL/min Glucose Level 128 mg/dl (70-220) Hemoglobin A1c 5.8 % (0-5.9) Calcium Level 8.2 mg/dl (8.4-10.2) Troponin I 0.020 ng/ml (0.000-0.120) 0.033 ng/ml (0.000-0.120) B-Type Natriuretic 7350 PG/ML (0-125) Peptide Creatine Kinase 112 IU/L (23-200) Creatine Kinase Index 5.1 Creatinine Kinase MB 5.76 ng/ml (0.0-2.4) (Mass) EVER FITZPATRICK NP May 29, 2019 07:12
[2019-05-29] MEDS ORDERED: ENOXAPARIN 40 MG/0.4 ML SYG SC SCH (09:00)
[2019-05-29] MEDS ORDERED: FUROSEMIDE 40 MG INJ IV SCH ×2 (09:00)
[2019-05-29] MEDS ORDERED: DULOXETINE 30 MG CAP DR PO SCH (09:00)
[2019-05-29] MEDS ORDERED: ASPIRIN (EC) 81 MG TAB PO SCH (09:00)
[2019-05-29] MEDS ORDERED: LISINOPRIL 5 MG TAB PO SCH (09:00)
== END 2019-05-28 22:35 | disposition left against medical advice (07) ==
LOC: E/R 12:52 → TEL 14:20
PROVIDERS: ADMIT Internal Medicine; ATTEND Internal Medicine
DX: R07.9 Chest pain, unspecified (principal); I25.10 Atherosclerotic heart disease of native coronary artery without angina pectoris; Z95.1 Presence of aortocoronary bypass graft; Z95.0 Presence of cardiac pacemaker; J44.9 Chronic obstructive pulmonary disease, unspecified; I11.0 Hypertensive heart disease with heart failure; I50.23 Acute on chronic systolic (congestive) heart failure; I69.354 Hemiplegia and hemiparesis following cerebral infarction affecting left non-dominant side; F17.200 Nicotine dependence, unspecified, uncomplicated; E78.5 Hyperlipidemia, unspecified; D64.9 Anemia, unspecified; I42.9 Cardiomyopathy, unspecified; Z59.0 Homelessness; Z79.82 Long term (current) use of aspirin
CPT/HCPCS: 36415; 71045; 80048; 82550; 82553; 83036; 83880; 84484; 85025; 93005; 94640; 94664; 99285; G0378; J1940

== ENCOUNTER 2019-06-06 15:48 | Inpatient (IN) | payer MEDICARE, MEDICAID ==
[~2019-06-06] VITALS: Ht 177.8 cm; Wt 82.1 kg
[~2019-06-06 15:48] MED LIST changes: +ACET-141 PO; -ALBU18HF INHALATION; +ASPI-817 PO; -ASPI-903 PO; -CARV3.1260 PO; +CARV6.2579 PO; +DULO30CA47 PO; -GUAI120S25 PO; -HYDR-4011 PO; -LISI-313 PO; -METO-335 PO; -MULT-861 PO; -NITR0.4T39 SL; +QUET50TA22 PO
[2019-06-06] MEDS ORDERED: NITROGLYCERIN 2% 1 GM OINT PKT TD STA (15:51)
[2019-06-06] MEDS ORDERED: ASPIRIN 325 MG TAB PO STA (15:51)
[2019-06-06] MEDS ORDERED: SOD CHLORIDE 0.9% 1,000 ML IV STA (15:51)
--- NOTE | 2019-06-06 16:04 | ERD ---
ER Documentation Chief Complaint Chief Complaint BIBA FOR GENERALIZED WEAKNESS ONSET TODAY,CHEST PRESSURE HPI 69-year-old male who presents to the emergency room complaining of generalized weakness and chest pain. He states that he was walking around all day and started to have substernal chest pressure that is consistent with anginal equivalent. Patient called 911. He did not receive aspirin and nitroglycerin via EMS because he did not tell them that he had chest pain. He denies any hematemesis or melena, no nausea or vomiting. Chest pain is mild currently. ROS All systems reviewed and are negative except as per history of present illness. Medications Home Meds Reported Medications Acetaminophen* (Acetaminophen*) 500 MG Extra Strength Tablet, 500 MG PO Q6H PRN for PAIN AND OR ELEVATED TEMP, TAB 05/28/19 Duloxetine Hcl* (Duloxetine Hcl*) 30 Mg Capsule.dr, 30 MG PO DAILY, #30 CAP 05/28/19 Quetiapine Fumarate* (Quetiapine Fumarate*) 50 Mg Tablet, 50 MG PO HS, TAB 05/28/19 Sacubitril/Valsartan (Entresto 24 mg-26 mg Tablet) 1 Each Tablet, 1 EACH PO BID, TAB 05/28/19 Carvedilol* (Carvedilol*) 6.25 Mg Tablet, 6.25 MG PO BID, #60 TAB 05/28/19 Furosemide* (Furosemide*) 40 Mg Tablet, 40 MG PO BID, TAB 05/28/19 Atorvastatin* (Atorvastatin*) 80 Mg Tablet, 80 MG PO QHS, #30 TAB 05/28/19 Aspirin* (Aspirin* EC) 81 Mg Tablet.dr, 81 MG PO DAILY, TAB 05/28/19 Allergies Allergies: Coded Allergies: No Known Drug Allergies (Verified Allergy, Unknown, 06/06/19) PMhx/Soc History of Surgery: Yes Anesthesia Reaction: No Hx Neurological Disorder: Yes (HEARING PROBLEM) Hx Respiratory Disorders: Yes (COPD) Hx Cardiac Disorders: Yes (CABG AND PACEMAKER) Hx Psychiatric Problems: No Hx Miscellaneous Medical Probl: No Hx Alcohol Use: No Hx Substance Use: No Hx Tobacco Use: No FmHx Family History: No diabetes Physical Exam Vitals Vital Signs Date Temp Pulse Resp B/P (MAP) Pulse Ox O2 O2 Flow FiO2 Time Delivery Rate 06/06/19 73 24 125/87 94 Room Air 16:51 (100) 06/06/19 Nasal 2 16:15 Cannula 06/06/19 97.8 75 18 122/71 97 15:57 (88) Physical Exam General: Well developed, well nourished, no acute distress Head: Normocephalic, atraumatic. Eyes: Pupils equally reactive, EOM intact ENT: Moist mucous membranes Neck: Supple, no lymphadenopathy Respiratory: Lungs clear bilaterally, no distress Cardiovascular: RRR, no murmurs, rubs, or gallops Abdominal: Soft, non-tender, non-distended, no peritoneal signs : Deferred MSK: No edema, no unilateral swelling, 5/5 strength Neurologic: Alert and oriented, moving all extremities, normal speech, no focal weakness, no cerebellar signs Skin: No rash Psych: Normal mood Result Diagram: 06/06/19 1613 06/06/19 1613 Results 24 hrs Laboratory Tests Test 06/06/19 16:13 White Blood Count 6.2 10^3/ul Red Blood Count 4.36 10^6/ul Hemoglobin 11.2 g/dl Hematocrit 35.3 % Mean Corpuscular Volume 81.0 fl Mean Corpuscular Hemoglobin 25.7 pg Mean Corpuscular Hemoglobin Concent 31.7 g/dl Red Cell Distribution Width 17.9 % Platelet Count 220 10^3/UL Mean Platelet Volume 10.6 fl Immature Granulocytes % 0.200 % Neutrophils % 62.6 % Lymphocytes % 16.1 % Monocytes % 12.8 % Eosinophils % 7.3 % Basophils % 1.0 % Nucleated Red Blood Cells % 0.0 /100WBC Immature Granulocytes # 0.010 10^3/ul Neutrophils # 3.9 10^3/ul Lymphocytes # 1.0 10^3/ul Monocytes # 0.8 10^3/ul Eosinophils # 0.5 10^3/ul Basophils # 0.1 10^3/ul Nucleated Red Blood Cells # 0.0 10^3/ul Sodium Level 141 mmol/L Potassium Level 4.0 mmol/L Chloride Level 110 mmol/L Carbon Dioxide Level 26 mmol/L Anion Gap 5 Blood Urea Nitrogen 32 mg/dl Creatinine 1.16 mg/dl Est Glomerular Filtrat Rate mL/min > 60 mL/min Glucose Level 137 mg/dl Calcium Level 8.0 mg/dl Troponin I 0.025 ng/ml Current Medications Medications Dose Sig/Jones Start Time Status Last (Trade) Ordered Route PRN Stop Time Admin Dose Reason Admin Sodium 1,000 ml @ Q1H STAT 06/06/19 DC 06/06/19 Chloride 1,000 mls/hr IV 15:51 06/06/19 16:40 16:50 Aspirin 325 mg ONCE STAT 06/06/19 DC 06/06/19 (Aspirin) PO 15:51 06/06/19 16:40 15:52 1 inch ONCE STAT 06/06/19 DC 06/06/19 Nitroglycerin TD 15:51 06/06/19 16:40 15:52 (Nitroglyceri n 2% Oint) Furosemide 40 mg ONCE ONCE 06/06/19 UNV (Lasix) IV 17:30 06/06/19 17:31 Ondansetron 4 mg ER BRIDGE 06/06/19 HCl (Zofran PRN IV 17:30 06/07/19 Inj) NAUSEA/VOMITI 17:29 NG 650 mg ER BRIDGE 06/06/19 Acetaminophen PRN PO 17:30 06/07/19 (Tylenol .MILD PAIN 17:29 Tab) 1-3 OR TEMP Procedures/MDM EKG, MONITORS, & DIAGNOSTIC IMAGING: EKG: I reviewed and interpreted a 12-lead EKG. Rhythm: Normal sinus rhythm, PVC ST Changes: No contiguous ST segment elevations T waves: No contiguous T wave inversions Impression: [No evidence of acute cardiac ischemia] Repeat EKG: EKG: I reviewed and interpreted a 12-lead EKG. Rhythm: Normal sinus rhythm ST Changes: No contiguous ST segment elevations T waves: No contiguous T wave inversions Impression: [No evidence of acute cardiac ischemia] Chest x-ray: I reviewed and interpreted a 1 view of the chest Mediastinum: No enlargement Cardiac silhouette: No cardiomegaly Airspace: Interstitial process Bones: No evidence of fracture PROCEDURES: [None] LAB INTERPRETATION: * Negative troponin MEDICAL DECISION MAKING: The patient's history, physical exam and clinical presentation is concerning for possible cardiogenic etiology and acute coronary syndrome. Also consider possible malingering. The patient does have a recent hospitalization. However he does have significant cardiac risk factors including ischemic cardiomyopathy. Based on the patient's clinical exam and history and risk factors, I have a much lower clinical concern for pulmonary embolism, acute aortic dissection, pneumothorax, pneumonia, cardiac tamponade HEART Score: 4 MACE Rate: 16.6% Shared Decision Making: We had a conversation regarding risk stratification, MACE rate, and the risks, benefits, alternatives of disposition planning options. Disposition planning: Admit ER COURSE: * Aspirin and nitro provided * The patient had some mild shortness of breath treated with Lasix. The patient has a chest x-ray consistent with some mild volume overload. He has a known history of ischemic cardiomyopathy. BNP added. CONSULTATION: [None] DISPOSITION PLAN: Telemetry admission for management of chest pain to rule out acute coronary syndrome, serial enzymes, risk stratification and consideration of provocative testing CONSULTATION: Accepting care team and consultations: I discussed the current laboratory data, diagnostic imaging and emergency care provided. Admitting team: Dr. Mckeon notified via [employer] Admitting team indication: Insurance directed Departure Diagnosis: Primary Impression: Chest pain Chest pain type: unspecified Qualified Codes: R07.9 - Chest pain, unspecified Additional Impression: Congestive heart failure Heart failure type: unspecified Heart failure chronicity: acute on chronic Qualified Codes: I50.9 - Heart failure, unspecified Condition: Stable TOMASZ CRAFT MD Jun 06, 2019 16:03
[2019-06-06] MEDS ORDERED: ONDANSETRON 4 MG INJ IV PRN (17:30)
[2019-06-06] MEDS ORDERED: FUROSEMIDE 40 MG INJ IV ONE (17:30)
[2019-06-06] MEDS ORDERED: ACETAMINOPHEN 325 MG TAB PO PRN (17:30)
--- NOTE | 2019-06-06 23:52 | HP ---
Date/Time of Note Date/Time of Note DATE: 06/06/19 TIME: 23:52 Assessment/Plan VTE Prophylaxis Pharmacological prophylaxis: heparin Lines/Catheters IV Catheter Type (from Nrs): Saline Lock Assessment/Plan Assessment/Plan 1. Acute on chronic CHF exacerbation, systolic -will diurese -Continue home cardiac medications, beta-jm and ACEI -Cardiology consult 2. Cardiomyopathy with systolic dysfunction, EF of 20% -See #1 3. COPD exacerbation -Supplemental oxygen, bronchodilators and steroid 4. Hypertension: BP within acceptable range. Adjust meds as needed 5. Dyslipidemia: Continue statin 6. Homeless status: Social work consult Result Diagram: 06/06/19 1613 06/06/19 1613 Results 24hrs Laboratory Tests Test 06/06/19 16:13 06/06/19 22:01 White Blood Count 6.2 Red Blood Count 4.36 L Hemoglobin 11.2 L Hematocrit 35.3 L Mean Corpuscular Volume 81.0 L Mean Corpuscular Hemoglobin 25.7 L Mean Corpuscular Hemoglobin Concent 31.7 L Red Cell Distribution Width 17.9 H Platelet Count 220 Mean Platelet Volume 10.6 H Immature Granulocytes % 0.200 Neutrophils % 62.6 Lymphocytes % 16.1 Monocytes % 12.8 H Eosinophils % 7.3 H Basophils % 1.0 Nucleated Red Blood Cells % 0.0 Immature Granulocytes # 0.010 Neutrophils # 3.9 Lymphocytes # 1.0 Monocytes # 0.8 Eosinophils # 0.5 Basophils # 0.1 Nucleated Red Blood Cells # 0.0 Sodium Level 141 Potassium Level 4.0 Chloride Level 110 Carbon Dioxide Level 26 Anion Gap 5 Blood Urea Nitrogen 32 H Creatinine 1.16 Est Glomerular Filtrat Rate mL/min > 60 Glucose Level 137 Calcium Level 8.0 L Troponin I 0.025 0.036 Creatine Kinase 188 Creatine Kinase Index 3.3 Creatinine Kinase MB (Mass) 6.17 H HPI/ROS Admit Date/Time Admit Date/Time Hx of Present Illness Patient is a 69-year-old homeless male with a history of cardiomyopathy with EF of 20% status post AICD, COPD, hypertension, dyslipidemia. Patient presented to the ER complaining of shortness of breath, chest pain, dizziness. Patient is very sleepy at this time and as such unable to gather significant information. Patient sounds congested and wheezing noted. He was admitted recently and actually left AMA a week ago after he was admitted for a CHF exacerbation. He said he is still homeless. Chest imaging shows the following 1. Findings suggestive of pulmonary vascular congestion with small bilateral pleural effusions, mildly improved on the left when compared to the prior examination. 2. Mild cardiomegaly and aortic atherosclerosis. PMH/Family/Social Past Medical History Past Surgical Hx: other Family History Significant Family History: no pertinent family hx Social History Alcohol Use: none Smoking Status: Never smoker Drug Use: none Exam Constitutional: other (No acute distress) Head: normocephalic, atraumatic Eyes: EOMI, PERRL Respiratory: clear to auscultation, normal air movement Cardiovascular: regular rate and rhythm Gastrointestinal: soft Extremities: normal pulses Medications Current Medications Ondansetron HCl (Zofran Inj) 4 mg ER BRIDGE PRN IV NAUSEA/VOMITING; Start 06/06/19 at 17:30; Stop 06/07/19 at 17:29 Acetaminophen (Tylenol Tab) 650 mg ER BRIDGE PRN PO .MILD PAIN 1-3 OR TEMP; Start 06/06/19 at 17:30; Stop 06/07/19 at 17:29 Coded Allergies: No Known Drug Allergies (Verified Allergy, Unknown, 06/06/19) Past Surgical History Past Surgical Hx: coronary bypass surgery, other Family History Significant Family History: no pertinent family hx Exam/Review of Systems Vital Signs Vitals Vital Signs Date Temp Pulse Resp B/P (MAP) Pulse Ox O2 O2 Flow FiO2 Time Delivery Rate 06/06/19 72 23 124/74 98 Room Air 22:04 (91) 06/06/19 2 16:15 06/06/19 97.8 15:57 CARMELA BUENO MD Jun 06, 2019 23:52
[2019-06-07] MEDS ORDERED: NITROGLYCERIN (SL) 0.4 MG TAB SL PRN (00:30)
[2019-06-07] MEDS ORDERED: ONDANSETRON 4 MG INJ IV PRN (00:30)
[2019-06-07] MEDS ORDERED: ACETAMINOPHEN 500 MG TAB PO PRN (00:30)
[2019-06-07] MEDS ORDERED: ALBUTEROL/IPRATROPIUM (NEB) 3 ML AMP HHN PRN (00:30)
[2019-06-07] MEDS ORDERED: NACL 0.9% 3 ML SYG IV SCH (00:30)
[2019-06-07 02:26] VITALS: BP 124/72; PULSE 73; RESP 19
[2019-06-07 02:51] VITALS: Ht 177.8 cm; Wt 82.1 kg
[2019-06-07 04:12] VITALS: BP 122/69; PULSE 69; RESP 18
[2019-06-07 07:12] VITALS: BP 129/78; PULSE 69; RESP 20
[2019-06-07] MEDS: HEPARIN 5,000 UNIT/1 ML VIAL SC SCH ×2 (08:18→20:14)
[2019-06-07] MEDS: SACUBITRIL/VALSARTAN (24mg-26mg) TABLET PO SCH ×2 (09:33→20:06)
[2019-06-07] MEDS: FUROSEMIDE 20 MG INJ IV SCH (09:33)
[2019-06-07] MEDS: predniSONE 20 MG TAB PO SCH (09:33)
[2019-06-07] MEDS: ASPIRIN (EC) 81 MG TAB PO SCH (09:34)
--- NOTE | 2019-06-07 11:24 | CONS ---
Consultation Date/Type/Reason Admit Date/Time Type of Consult Cardiology Date/Time of Note DATE: 06/07/19 TIME: 11:23 Hx of Present Illness 69 yo with CAD, CMY, ICD - well know to the service - unclear if compliant with therapy - r/o CO - Full note dictated # [id number] Past Medical History Home Meds Reported Medications Acetaminophen* (Acetaminophen*) 500 MG Extra Strength Tablet, 500 MG PO Q6H PRN for PAIN AND OR ELEVATED TEMP, TAB 05/28/19 Duloxetine Hcl* (Duloxetine Hcl*) 30 Mg Capsule.dr, 30 MG PO DAILY, #30 CAP 05/28/19 Quetiapine Fumarate* (Quetiapine Fumarate*) 50 Mg Tablet, 50 MG PO HS, TAB 05/28/19 Sacubitril/Valsartan (Entresto 24 mg-26 mg Tablet) 1 Each Tablet, 1 EACH PO BID, TAB 05/28/19 Carvedilol* (Carvedilol*) 6.25 Mg Tablet, 6.25 MG PO BID, #60 TAB 05/28/19 Furosemide* (Furosemide*) 40 Mg Tablet, 40 MG PO BID, TAB 05/28/19 Atorvastatin* (Atorvastatin*) 80 Mg Tablet, 80 MG PO QHS, #30 TAB 05/28/19 Aspirin* (Aspirin* EC) 81 Mg Tablet.dr, 81 MG PO DAILY, TAB 05/28/19 Medications Current Medications Ondansetron HCl (Zofran Inj) 4 mg ER BRIDGE PRN IV NAUSEA/VOMITING; Start 06/06/19 at 17:30; Stop 06/07/19 at 17:29 Acetaminophen (Tylenol Tab) 650 mg ER BRIDGE PRN PO .MILD PAIN 1-3 OR TEMP; Start 06/06/19 at 17:30; Stop 06/07/19 at 17:29 IV Flush (NS 3 ml) 3 ml PER PROTOCOL IV ; Start 06/07/19 at 00:30 Ondansetron HCl (Zofran Inj) 4 mg Q6H PRN IV NAUSEA/VOMITING; Start 06/07/19 at 00:30 Nitroglycerin (Nitroglycerin (Sl Tab) 0.4 Mg) 1 tab Q5M PRN SL .CHEST PAIN; Start 06/07/19 at 00:30 Heparin Sodium (Porcine) (Heparin (5000 Units/1ml)) 5,000 unit Q12 SC Last administered on 06/07/19 08:18; Admin Dose 5,000 UNIT; Start 06/07/19 at 09:00 Albuterol/ Ipratropium (Duoneb) 3 ml Q2H RESP THERAPY PRN HHN SHORTNESS OF BREATH; Start 06/07/19 at 00:30 Acetaminophen (Tylenol Tab) 500 mg Q6H PRN PO MILD PAIN(1-3)OR ELEVATED TEMP; Start 06/07/19 at 00:30 Quetiapine Fumarate (Seroquel) 50 mg HS PO ; Start 06/07/19 at 21:00 Furosemide (Lasix) 20 mg DAILY IV Last administered on 06/07/19 09:33; Admin Dose 20 MG; Start 06/07/19 at 09:30 Prednisone (Prednisone) 20 mg DAILY PO Last administered on 06/07/19 09:33; Admin Dose 20 MG; Start 06/07/19 at 09:30; Stop 06/11/19 at 09:00 Aspirin (Halfprin) 81 mg DAILY PO Last administered on 06/07/19 09:34; Admin D ose 81 MG; Start 06/07/19 at 09:30 Atorvastatin Calcium (Lipitor) 80 mg QHS PO ; Start 06/07/19 at 21:00 Carvedilol (Coreg) 6.25 mg BID PO Last administered on 06/07/19 09:34; Admin Dose 6.25 MG; Start 06/07/19 at 09:30 Sacubitril/ Valsartan (Entresto 24 Mg-26 Mg) 1 tab BID PO Last administered on 06/07/19 09:33; Admin Dose 1 TAB; Start 06/07/19 at 09:30 Allergies: Coded Allergies: No Known Drug Allergies (Verified Allergy, Unknown, 06/06/19) Past Surgical History Past Surgical Hx: coronary bypass surgery, other Social History Smoking Status: Current every day smoker Exam/Review of Systems Vital Signs Vitals Vital Signs Date Temp Pulse Resp B/P (MAP) Pulse Ox O2 O2 Flow FiO2 Time Delivery Rate 06/07/19 98.8 69 20 129/78 98 Room Air 07:12 (95) 06/06/19 2 16:15 Intake and Output 06/06/19 06/06/19 06/07/19 1515:00 23:00 07:00 IntakeIntake Total 640 ml BalanceBalance 640 ml Labs Result Diagram: 06/06/19 1613 06/06/19 1613 Results 24hrs Laboratory Tests Test 06/06/19 16:13 06/06/19 22:01 06/07/19 04:02 White Blood Count 6.2 Red Blood Count 4.36 L Hemoglobin 11.2 L Hematocrit 35.3 L Mean Corpuscular Volume 81.0 L Mean Corpuscular Hemoglobin 25.7 L Mean Corpuscular Hemoglobin Concent 31.7 L Red Cell Distribution Width 17.9 H Platelet Count 220 Mean Platelet Volume 10.6 H Immature Granulocytes % 0.200 Neutrophils % 62.6 Lymphocytes % 16.1 Monocytes % 12.8 H Eosinophils % 7.3 H Basophils % 1.0 Nucleated Red Blood Cells % 0.0 Immature Granulocytes # 0.010 Neutrophils # 3.9 Lymphocytes # 1.0 Monocytes # 0.8 Eosinophils # 0.5 Basophils # 0.1 Nucleated Red Blood Cells # 0.0 Sodium Level 141 Potassium Level 4.0 Chloride Level 110 Carbon Dioxide Level 26 Anion Gap 5 Blood Urea Nitrogen 32 H Creatinine 1.16 Est Glomerular Filtrat Rate mL/min > 60 Glucose Level 137 Calcium Level 8.0 L Troponin I 0.025 0.036 0.039 Creatine Kinase 188 177 Creatine Kinase Index 3.3 3.2 Creatinine Kinase MB (Mass) 6.17 H 5.70 H Medications Medications Current Medications Ondansetron HCl (Zofran Inj) 4 mg ER BRIDGE PRN IV NAUSEA/VOMITING; Start 06/06/19 at 17:30; Stop 06/07/19 at 17:29 Acetaminophen (Tylenol Tab) 650 mg ER BRIDGE PRN PO .MILD PAIN 1-3 OR TEMP; St art 06/06/19 at 17:30; Stop 06/07/19 at 17:29 IV Flush (NS 3 ml) 3 ml PER PROTOCOL IV ; Start 06/07/19 at 00:30 Ondansetron HCl (Zofran Inj) 4 mg Q6H PRN IV NAUSEA/VOMITING; Start 06/07/19 at 00:30 Nitroglycerin (Nitroglycerin (Sl Tab) 0.4 Mg) 1 tab Q5M PRN SL .CHEST PAIN; Start 06/07/19 at 00:30 Heparin Sodium (Porcine) (Heparin (5000 Units/1ml)) 5,000 unit Q12 SC Last administered on 06/07/19 08:18; Admin Dose 5,000 UNIT; Start 06/07/19 at 09:00 Albuterol/ Ipratropium (Duoneb) 3 ml Q2H RESP THERAPY PRN HHN SHORTNESS OF BREATH; Start 06/07/19 at 00:30 Acetaminophen (Tylenol Tab) 500 mg Q6H PRN PO MILD PAIN(1-3)OR ELEVATED TEMP; Start 06/07/19 at 00:30 Quetiapine Fumarate (Seroquel) 50 mg HS PO ; Start 06/07/19 at 21:00 Furosemide (Lasix) 20 mg DAILY IV Last administered on 06/07/19 09:33; Admin Dose 20 MG; Start 06/07/19 at 09:30 Prednisone (Prednisone) 20 mg DAILY PO Last administered on 06/07/19 09:33; Admin Dose 20 MG; Start 06/07/19 at 09:30; Stop 06/11/19 at 09:00 Aspirin (Halfprin) 81 mg DAILY PO Last administered on 06/07/19 09:34; Admin Dose 81 MG; Start 06/07/19 at 09:30 Atorvastatin Calcium (Lipitor) 80 mg QHS PO ; Start 06/07/19 at 21:00 Carvedilol (Coreg) 6.25 mg BID PO Last administered on 06/07/19 09:34; Admin Dose 6.25 MG; Start 06/07/19 at 09:30 Sacubitril/ Valsartan (Entresto 24 Mg-26 Mg) 1 tab BID PO Last administered on 06/07/19 09:33; Admin Dose 1 TAB; Start 06/07/19 at 09:30 ROMINA BUTCHER MD Jun 07, 2019 11:24
--- NOTE | 2019-06-07 11:43 | CONS ---
DATE OF ADMISSION: 06/06/2019 DATE OF CONSULTATION: 06/07/2019 TYPE OF CONSULTATION: Cardiology. REFERRING PHYSICIAN: Kwame Bueno MD REASON FOR EVALUATION: Chest pain. HISTORY OF PRESENT ILLNESS: Mr. Miller is a 69-year-old gentleman known for a prior admission with h istory of cardiomyopathy, heart failure 20%, prior history of biventricular ICD, coronary artery dise ase, history of bypass graft in 2013, hypertension, hyperlipidemia, psychiatric disorder, ongoing tob acco use, who was brought to the hospital once again for evaluation of precordial chest pain. The pa angélica said he had some episodes of chest discomfort yesterday. He sat on the sidewalk, and then he w as brought to the hospital for evaluation. Based on his initial assessment, it does not appear that he ruled in for acute myocardial infarction. He is on some degree of fluid overload, which is reason able for him. I think for now conservative care. I expect the patient to rule out for acute myocard ial infarction. We will try to optimize his medical therapy. PAST MEDICAL HISTORY: Hypertension, dyslipidemia, history of ischemic cardiomyopathy with EF of 20%. , biventricular ICD, coronary artery bypass surgery in 2013, hypertension, psychiatric disease, COPD with tobacco use. ALLERGIES: NO KNOWN DRUG ALLERGIES. SOCIAL HISTORY: The patient has a history of what appears to be a continuous history of alcohol use. No drug use. FAMILY HISTORY: Positive for coronary artery disease, hypertension. PRIOR MEDICATIONS: 1. Aspirin. 2. Lovenox. 3. Lipitor 80 mg. 4. Coreg 6.25 b.i.d. 5. Mathieu 1 tablet p.o. b.i.d. 5. Zofran. 6. Nitroglycerin. 7. Aspirin. 8. Cymbalta. It is not clear to me if he has been taking any of his medications as an outpatient. REVIEW OF SYSTEMS: CONSTITUTIONAL: No fevers, no chills, no recent weight change. HEENT: No changes in vision or hearing. CARDIAC: Chest pain reported now. RESPIRATORY: No shortness of breath. GASTROINTESTINAL: No nausea, vomiting. NEUROLOGIC: No focal neurologic deficits. HEMATOLOGIC: No easy bruising. PSYCHIATRIC: History of significant psychiatric illness. PHYSICAL EXAMINATION: VITAL SIGNS: Temperature 98.8, heart rate 89, blood pressure 129/78. GENERAL: He is a well-nourished gentleman in no acute distress. Alert and oriented xo 3, somewhat a younger of his condition. HEENT: Head is normocephalic, atraumatic. Eyes anicteric. NECK: Supple. JVD 6 cm. There is no lymphadenopathy, no thyromegaly. HEART: Regular, I/ systolic murmur. PMI is nondisplaced. I do not hear an S3. LUNGS: Coarse to base. ABDOMEN: Distended. Bowel sounds are present. There is no hepatosplenomegaly. GENITOURINARY: No changes. EXTREMITIES: Show no clubbing, cyanosis. Trace to 1+ edema. ICD site appears to be well healed. LABORATORY DATA: White blood cell count 6.2, hemoglobin is 12.5, platelets 220. His INR is 1.0. So dium 141, potassium 4.0, BUN of 32, creatinine 1.15. Troponin is negative at 0.039. ASSESSMENT AND PLAN: 1. Cardiomyopathy. Patient with known cardiomyopathy, ischemic. Not clear if he has been compliant with his therapy. I will resume his medications now. 2. Biventricular implantable cardioverter-defibrillator, appears to be with good function now. 3. Hypertension. Blood pressure well controlled. Continue to adjust medicines as indicated. 4. Congestive heart failure, [id number]. Gentle diuresis . The patient was on Mathieu and ot her life-preserving medications. 5. Psychiatric illness. Defer to primary team. Continue to adjust psychiatric medications. 6. Anemia. Hemoglobin is fairly stable in 0.2. No evidence of bleeding now. I would like to thank Dr. Bueno for referring this patient for my evaluation. Dictated By: ROMINA BUTCHER MD ML/NTS Conf#: [id number] DID#: [id number] CC: KWAME BUENO MD;*EndCC*
[2019-06-07 11:47] VITALS: BP 117/71; PULSE 71; RESP 20
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
[2019-06-07 15:53] VITALS: BP 115/65; PULSE 74; RESP 20
[2019-06-07] MEDS: QUETIAPINE 25 MG TAB PO SCH (20:04)
[2019-06-07] MEDS: ATORVASTATIN 80 MG TAB PO SCH (20:04)
[2019-06-07 20:15] VITALS: BP 111/67; PULSE 72; RESP 20
[2019-06-07] MEDS: ALBUTEROL/IPRATROPIUM (NEB) 3 ML AMP HHN SCH (20:34)
[2019-06-08 00:05] VITALS: BP 103/54; PULSE 60; RESP 20
[2019-06-08 03:16] VITALS: BP 91/53; PULSE 61; RESP 20
[2019-06-08 07:00] VITALS: BP 99/63; PULSE 63; RESP 20
[2019-06-08] MEDS: ALBUTEROL/IPRATROPIUM (NEB) 3 ML AMP HHN SCH ×3 (07:20→19:51)
[2019-06-08] MEDS: predniSONE 20 MG TAB PO SCH (08:24)
[2019-06-08] MEDS: SACUBITRIL/VALSARTAN (24mg-26mg) TABLET PO SCH ×2 (08:24→20:56)
[2019-06-08] MEDS: ASPIRIN (EC) 81 MG TAB PO SCH (08:25)
[2019-06-08] MEDS: FUROSEMIDE 20 MG INJ IV SCH ×2 (08:25→20:56)
[2019-06-08] MEDS: HEPARIN 5,000 UNIT/1 ML VIAL SC SCH ×2 (08:32→21:21)
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
[2019-06-08 11:00] VITALS: BP 110/62; PULSE 60; RESP 18
--- NOTE | 2019-06-08 13:37 | CONS ---
Assessment/Plan Assessment/Plan Hospital Course (Demo Recall) IMP: 1.CHF-systolic acute on chronic. Neg trop x 3 2.Cardiomyopathy-last known 20% 3.H/O ICD 4.HTN 5.HL 6.secondary to #1 7.Psych Recc: -Tele -serial ecg's -Continue coreg/entresto -Increase lasix diuresis to BID -Continue statin/asa -Continue steroids/bronchodilators Consultation Date/Type/Reason Admit Date/Time Jun 07, 2019 at 11:24 Initial Consult Date 06/07/19 Type of Consult Cardiology Reason for Consultation cardiomyopathy Requesting Provider: CARMELA BUENO MD Date/Time of Note DATE: 06/08/19 TIME: 13:32 Exam/Review of Systems Vital Signs Vitals Vital Signs Date Temp Pulse Resp B/P (MAP) Pulse Ox O2 O2 Flow FiO2 Time Delivery Rate 06/08/19 97.5 60 18 110/62 98 Room Air 11:00 (78) 06/08/19 21 07:20 06/06/19 2 16:15 Intake and Output 06/07/19 06/07/19 06/08/19 1515:00 23:00 07:00 IntakeIntake Total 760 ml 760 ml 540 ml BalanceBalance 760 ml 760 ml 540 ml Exam Exam Review of Systems: CONSTITUTIONAL: No fevers, chills. PULMONARY: No sob CARDIOVASCULAR: No chest pain/palpitations GASTROINTESTINAL: No nausea/vomiting. GENITOURINARY: No hematuria/dysuria. MUSCULOSKELETAL: No myagias/arthalgias. PSYCHIATRIC: The patient denies depression. NEUROLOGIC: No weakness Constitutional: alert Psych: no complaints Head: normocephalic ENMT: mucosa pink and moist Neck: jvd (9 cm water) Respiratory: diminished breath sounds (at bases/B) Cardiovascular: regular rate and rhythm Gastrointestinal: soft, non-tender Musculoskeletal: muscle tone (normal) Extremities: pitting pedal edema (L>R) Neurological: other (No focal deficits) Labs Result Diagram: 06/08/19 0536 06/08/19 0536 Results 24hrs Laboratory Tests Test 06/08/19 05:36 White Blood Count 8.1 # Red Blood Count 4.35 L Hemoglobin 11.1 L Hematocrit 34.8 L Mean Corpuscular Volume 80.0 L Mean Corpuscular Hemoglobin 25.5 L Mean Corpuscular Hemoglobin Concent 31.9 L Red Cell Distribution Width 17.8 H Platelet Count 198 Mean Platelet Volume 10.9 H Immature Granulocytes % 0.600 H Neutrophils % 75.9 Lymphocytes % 12.2 L Monocytes % 8.4 Eosinophils % 2.5 Basophils % 0.4 Nucleated Red Blood Cells % 0.0 Immature Granulocytes # 0.050 H Neutrophils # 6.1 Lymphocytes # 1.0 Monocytes # 0.7 Eosinophils # 0.2 Basophils # 0.0 Nucleated Red Blood Cells # 0.0 Sodium Level 140 Potassium Level 4.1 Chloride Level 109 Carbon Dioxide Level 26 Anion Gap 5 Blood Urea Nitrogen 32 H Creatinine 0.90 Est Glomerular Filtrat Rate mL/min > 60 Glucose Level 144 Calcium Level 8.2 L Magnesium Level 2.0 Total Bilirubin 0.5 Direct Bilirubin 0.00 Indirect Bilirubin 0.5 Aspartate Amino Transf (AST/SGOT) 22 Alanine Aminotransferase (ALT/SGPT) 27 Alkaline Phosphatase 81 Total Protein 5.0 L Albumin 2.5 L Globulin 2.50 Albumin/Globulin Ratio 1.00 Medications Medications Current Medications IV Flush (NS 3 ml) 3 ml PER PROTOCOL IV ; Start 06/07/19 at 00:30 Ondansetron HCl (Zofran Inj) 4 mg Q6H PRN IV NAUSEA/VOMITING; Start 06/07/19 at 00:30 Nitroglycerin (Nitroglycerin (Sl Tab) 0.4 Mg) 1 tab Q5M PRN SL .CHEST PAIN; Start 06/07/19 at 00:30 Heparin Sodium (Porcine) (Heparin (5000 Units/1ml)) 5,000 unit Q12 SC Last administered on 06/08/19at 08:32; Admin Dose 5,000 UNIT; Start 06/07/19 at 09:00 Albuterol/ Ipratropium (Duoneb) 3 ml Q2H RESP THERAPY PRN HHN SHORTNESS OF BREATH; Start 06/07/19 at 00:30 Acetaminophen (Tylenol Tab) 500 mg Q6H PRN PO MILD PAIN(1-3)OR ELEVATED TEMP; Start 06/07/19 at 00:30 Quetiapine Fumarate (Seroquel) 50 mg HS PO Last administered on 06/07/19at 20:04; Admin Dose 50 MG; Start 06/07/19 at 21:00 Furosemide (Lasix) 20 mg DAILY IV Last administered on 06/08/19 08:25; Admin Dose 20 MG; Start 06/07/19 at 09:30 Prednisone (Prednisone) 20 mg DAILY PO Last administered on 06/08/19 08:24; Admin Dose 20 MG; Start 06/07/19 at 09:30; Stop 06/11/19 at 09:00 Aspirin (Halfprin) 81 mg DAILY PO Last administered on 06/08/19 08:25; Admin Dose 81 MG; Start 06/07/19 at 09:30 Atorvastatin Calcium (Lipitor) 80 mg QHS PO Last administered on 06/07/19 20:04; Admin Dose 80 MG; Start 06/07/19 at 21:00 Carvedilol (Coreg) 6.25 mg BID PO Last administered on 06/07/19 20:06; Admin Dose 6.25 MG; Start 06/07/19 at 09:30 Sacubitril/ Valsartan (Entresto 24 Mg-26 Mg) 1 tab BID PO Last administered on 06/07/19 20:06; Admin Dose 1 TAB; Start 06/07/19 at 09:30 Albuterol/ Ipratropium (Duoneb) 3 ml Q6HWA RESP THERAPY HHN Last administered on 06/08/19 07:20; Admin Dose 3 ML; Start 06/07/19 at 14:00 OTIS HORAN Jun 08, 2019 13:37
[2019-06-08 15:05] VITALS: BP 119/62; PULSE 61; RESP 20
[2019-06-08 20:01] VITALS: BP 95/53; PULSE 77; RESP 20
[2019-06-08] MEDS: ATORVASTATIN 80 MG TAB PO SCH (20:56)
[2019-06-08] MEDS: QUETIAPINE 25 MG TAB PO SCH (20:56)
[2019-06-09] VITALS (7 sets, daily range): BP systolic 100–128; BP diastolic 50–81; PULSE 65–81; RESP 18–20
[2019-06-09] MEDS: FUROSEMIDE 20 MG INJ IV SCH ×2 (08:34→21:21)
[2019-06-09] MEDS: predniSONE 20 MG TAB PO SCH (08:34)
[2019-06-09] MEDS: ASPIRIN (EC) 81 MG TAB PO SCH (08:34)
[2019-06-09] MEDS: SACUBITRIL/VALSARTAN (24mg-26mg) TABLET PO SCH ×2 (08:34→21:20)
[2019-06-09] MEDS: ALBUTEROL/IPRATROPIUM (NEB) 3 ML AMP HHN SCH ×3 (08:40→21:11)
[2019-06-09] MEDS: HEPARIN 5,000 UNIT/1 ML VIAL SC SCH ×2 (08:47→21:29)
[2019-06-09] MEDS ORDERED: POTASSIUM CHLORIDE (SR) 20 MEQ TAB PO STA (08:48)
[2019-06-09] MEDS ORDERED: MAGNESIUM OXIDE 400 MG TAB PO ONE (09:00)
--- NOTE | 2019-06-09 10:26 | PN ---
Date/Time of Note Date/Time of Note DATE: 06/09/19 TIME: 10:21 Assessment/Plan VTE Prophylaxis Risk score (from Ns)>0 risk: 4 SCD applied (from [facility] [place]): No SCD contraindicated: other Pharmacological prophylaxis: heparin Lines/Catheters IV Catheter Type (from [facility]): Saline Lock Urinary Cath still in place: No Assessment/Plan Assessment/Plan 1. Acute on chronic CHF exacerbation, systolic - Cardiology on board and appreciate consultation. Adjustments made to diure tics and will continue monitoring I/O and daily weights. Still with LLE pitting edema - will need medications delivered prior to discharge 2. Acute chest discomfort- resolved - most likely secondary to medication noncompliance - ACS ruled out with EKG neg for ST changes and negative serial troponins 3. Cardiomyopathy - EF of 20% 4. COPD exacerbation - Duonebs - O2 as needed 5. HTN - continue BP medications - stable 6. Dyslipidemia - continue on statin 7. Homeless - SW consultation appreciated and referred to [facility] 8. Disposition - Continue diuresing and monitor I/Os - SW on board for assistance with placement Result Diagram: 06/09/19 0500 06/09/19 0500 Results 24hrs Laboratory Tests Test 06/09/19 05:00 White Blood Count 5.5 # Red Blood Count 4.61 L Hemoglobin 11.8 L Hematocrit 36.9 L Mean Corpuscular Volume 80.0 L Mean Corpuscular Hemoglobin 25.6 L Mean Corpuscular Hemoglobin Concent 32.0 Red Cell Distribution Width 17.7 H Platelet Count 214 Mean Platelet Volume 10.9 H Immature Granulocytes % 0.400 Neutrophils % 54.2 Lymphocytes % 26.4 Monocytes % 10.6 Eosinophils % 7.3 H Basophils % 1.1 Nucleated Red Blood Cells % 0.0 Immature Granulocytes # 0.020 Neutrophils # 3.0 Lymphocytes # 1.4 Monocytes # 0.6 Eosinophils # 0.4 Basophils # 0.1 Nucleated Red Blood Cells # 0.0 Sodium Level 140 Potassium Level 3.8 Chloride Level 106 Carbon Dioxide Level 30 Anion Gap 4 L Blood Urea Nitrogen 30 H Creatinine 1.05 Glucose Level 149 Calcium Level 8.1 L Phosphorus Level 3.8 Magnesium Level 1.7 Albumin 2.7 L Subjective 24 Hr Interval Summary Free Text/Dictation Patient states hes feeling better and denies any worsening symptoms. He is concerned that he is not getting enough nutrition and always hungry. No acute overnight events. Exam/Review of Systems Exam Vitals Vital Signs Date Temp Pulse Resp B/P (MAP) Pulse Ox O2 O2 Flow FiO2 Time Delivery Rate 06/09/19 97.3 66 20 111/67 99 Room Air 07:10 (82) 06/08/19 21 19:25 06/06/19 2 16:15 Intake and Output 06/08/19 06/08/19 06/09/19 1515:00 23:00 07:00 IntakeIntake Total 1800 ml 400 ml OutputOutput Total 600 ml BalanceBalance 1800 ml -200 ml Exam General: Patient is sitting in chair at bedside. no acute distress Neck: Supple, no JVD Respiratory: Diminished at bases. no crackles or wheezing appreciated Cardiovascular: Regular rate and rhythm, no obvious murmurs Gastrointestinal: soft, non-tender to palpation, nondistended, bowel sounds heard. Ext: +1 pitting edema LLE, trace RLE. no cyanosis or clubbing Skin: No new skin lesions Results Results 24hrs Laboratory Tests Test 06/09/19 05:00 White Blood Count 5.5 # Red Blood Count 4.61 L Hemoglobin 11.8 L Hematocrit 36.9 L Mean Corpuscular Volume 80.0 L Mean Corpuscular Hemoglobin 25.6 L Mean Corpuscular Hemoglobin Concent 32.0 Red Cell Distribution Width 17.7 H Platelet Count 214 Mean Platelet Volume 10.9 H Immature Granulocytes % 0.400 Neutrophils % 54.2 Lymphocytes % 26.4 Monocytes % 10.6 Eosinophils % 7.3 H Basophils % 1.1 Nucleated Red Blood Cells % 0.0 Immature Granulocytes # 0.020 Neutrophils # 3.0 Lymphocytes # 1.4 Monocytes # 0.6 Eosinophils # 0.4 Basophils # 0.1 Nucleated Red Blood Cells # 0.0 Sodium Level 140 Potassium Level 3.8 Chloride Level 106 Carbon Dioxide Level 30 Anion Gap 4 L Blood Urea Nitrogen 30 H Creatinine 1.05 Glucose Level 149 Calcium Level 8.1 L Phosphorus Level 3.8 Magnesium Level 1.7 Albumin 2.7 L Medications Medication Current Medications IV Flush (NS 3 ml) 3 ml PER PROTOCOL IV ; Start 06/07/19 at 00:30 Ondansetron HCl (Zofran Inj) 4 mg Q6H PRN IV NAUSEA/VOMITING; Start 06/07/19 at 00:30 Nitroglycerin (Nitroglycerin (Sl Tab) 0.4 Mg) 1 tab Q5M PRN SL .CHEST PAIN; Start 06/07/19 at 00:30 Heparin Sodium (Porcine) (Heparin (5000 Units/1ml)) 5,000 unit Q12 SC Last administered on 06/09/19 08:47; Admin Dose 5,000 UNIT; Start 06/07/19 at 09:00 Albuterol/ Ipratropium (Duoneb) 3 ml Q2H RESP THERAPY PRN HHN SHORTNESS OF BREATH; Start 06/07/19 at 00:30 Acetaminophen (Tylenol Tab) 500 mg Q6H PRN PO MILD PAIN(1-3)OR ELEVATED TEMP; Start 06/07/19 at 00:30 Quetiapine Fumarate (Seroquel) 50 mg HS PO Last administered on 06/08/19 20:56; Admin Dose 50 MG; Start 06/07/19 at 21:00 Prednisone (Prednisone) 20 mg DAILY PO Last administered on 06/09/19 08:34; Admin Dose 20 MG; Start 06/07/19 at 09:30; Stop 06/11/19 at 09:00 Aspirin (Halfprin) 81 mg DAILY PO Last administered on 06/09/19 08:34; Admin Dose 81 MG; Start 06/07/19 at 09:30 Atorvastatin Calcium (Lipitor) 80 mg QHS PO Last administered on 06/08/19 20:56; Admin Dose 80 MG; Start 06/07/19 at 21:00 Carvedilol (Coreg) 6.25 mg BID PO Last administered on 06/09/19 08:34; Admin Dose 6.25 MG; Start 06/07/19 at 09:30 Sacubitril/ Valsartan (Entresto 24 Mg-26 Mg) 1 tab BID PO Last administered on 06/09/19 08:34; Admin Dose 1 TAB; Start 06/07/19 at 09:30 Albuterol/ Ipratropium (Duoneb) 3 ml Q6HWA RESP THERAPY HHN Last administered on 06/09/19 08:40; Admin Dose 3 ML; Start 06/07/19 at 14:00 Furosemide (Lasix) 20 mg BID IV Last administered on 06/09/19 08:34; Admin Dose 20 MG; Start 06/08/19 at 21:00 BEV DOWNEY MD Jun 09, 2019 10:26
--- NOTE | 2019-06-09 12:26 | CONS ---
Consult Date/Type/Reason Admit Date/Time Jun 07, 2019 at 11:24 Initial Consult Date Requesting Provider: CARMELA BUENO MD Date/Time of Note DATE: 06/09/19 TIME: 12:24 Subjective NO acute events - BP in good range now - feels better overall. ROS: No fever, no chills, no nausea, no vomiting, no diarrhea/constipation No recent weight changes No chest pain, no PND, no orthopnea - mild SOB, better now No dizziness, blurred vision No thirst, no heat or cold intolerance Objective Vitals Vital Signs Date Temp Pulse Resp B/P (MAP) Pulse Ox O2 O2 Flow FiO2 Time Delivery Rate 06/09/19 97.8 65 20 106/62 96 Room Air 11:15 (77) 06/08/19 21 19:25 06/06/19 2 16:15 Intake and Output 06/08/19 06/08/19 06/09/19 1414:59 22:59 06:59 IntakeIntake Total 1800 ml 400 ml OutputOutput Total 600 ml BalanceBalance 1800 ml -200 ml Exam General: WN/WD/NAD, AOx 2-3 HEENT: Unicetric/atraumatic/EOMI (follows commands) NECK: JVD elevated, no thyromegaly Lymph: no lymphadenopathy HEART: regular with no S3, II/ systolic murmur at apex, PMI L - ICD LUNGS: Coarse sounds ABD: soft, NT, ND, +BS : Intact Neuro: non focal SKIN: chronic changes EXT: trace edema Results/Medications Result Diagram: 06/09/19 0500 06/09/19 0500 Results 24 hrs Laboratory Tests Test 06/09/19 05:00 White Blood Count 5.5 # Red Blood Count 4.61 L Hemoglobin 11.8 L Hematocrit 36.9 L Mean Corpuscular Volume 80.0 L Mean Corpuscular Hemoglobin 25.6 L Mean Corpuscular Hemoglobin Concent 32.0 Red Cell Distribution Width 17.7 H Platelet Count 214 Mean Platelet Volume 10.9 H Immature Granulocytes % 0.400 Neutrophils % 54.2 Lymphocytes % 26.4 Monocytes % 10.6 Eosinophils % 7.3 H Basophils % 1.1 Nucleated Red Blood Cells % 0.0 Immature Granulocytes # 0.020 Neutrophils # 3.0 Lymphocytes # 1.4 Monocytes # 0.6 Eosinophils # 0.4 Basophils # 0.1 Nucleated Red Blood Cells # 0.0 Sodium Level 140 Potassium Level 3.8 Chloride Level 106 Carbon Dioxide Level 30 Anion Gap 4 L Blood Urea Nitrogen 30 H Creatinine 1.05 Glucose Level 149 Calcium Level 8.1 L Phosphorus Level 3.8 Magnesium Level 1.7 Albumin 2.7 L Home Meds Reported Medications Acetaminophen* (Acetaminophen*) 500 MG Extra Strength Tablet, 500 MG PO Q6H PRN for PAIN AND OR ELEVATED TEMP, TAB 05/28/19 Duloxetine Hcl* (Duloxetine Hcl*) 30 Mg Capsule.dr, 30 MG PO DAILY, #30 CAP 05/28/19 Quetiapine Fumarate* (Quetiapine Fumarate*) 50 Mg Tablet, 50 MG PO HS, TAB 05/28/19 Sacubitril/Valsartan (Entresto 24 mg-26 mg Tablet) 1 Each Tablet, 1 EACH PO BID, TAB 05/28/19 Carvedilol* (Carvedilol*) 6.25 Mg Tablet, 6.25 MG PO BID, #60 TAB 05/28/19 Furosemide* (Furosemide*) 40 Mg Tablet, 40 MG PO BID, TAB 05/28/19 Atorvastatin* (Atorvastatin*) 80 Mg Tablet, 80 MG PO QHS, #30 TAB 05/28/19 Aspirin* (Aspirin* EC) 81 Mg Tablet.dr, 81 MG PO DAILY, TAB 05/28/19 Medications Current Medications IV Flush (NS 3 ml) 3 ml PER PROTOCOL IV ; Start 06/07/19 at 00:30 Ondansetron HCl (Zofran Inj) 4 mg Q6H PRN IV NAUSEA/VOMITING; Start 06/07/19 at 00:30 Nitroglycerin (Nitroglycerin (Sl Tab) 0.4 Mg) 1 tab Q5M PRN SL .CHEST PAIN; S tart 06/07/19 at 00:30 Heparin Sodium (Porcine) (Heparin (5000 Units/1ml)) 5,000 unit Q12 SC Last ad ministered on 06/09/19at 08:47; Admin Dose 5,000 UNIT; Start 06/07/19 at 09:00 Albuterol/ Ipratropium (Duoneb) 3 ml Q2H RESP THERAPY PRN HHN SHORTNESS OF BREATH; Start 06/07/19 at 00:30 Acetaminophen (Tylenol Tab) 500 mg Q6H PRN PO MILD PAIN(1-3)OR ELEVATED TEMP; Start 06/07/19 at 00:30 Quetiapine Fumarate (Seroquel) 50 mg HS PO Last administered on 06/08/19 20:56; Admin Dose 50 MG; Start 06/07/19 at 21:00 Prednisone (Prednisone) 20 mg DAILY PO Last administered on 06/09/19 08:34; Admin Dose 20 MG; Start 06/07/19 at 09:30; Stop 06/11/19 at 09:00 Aspirin (Halfprin) 81 mg DAILY PO Last administered on 06/09/19 08:34; Admin Dose 81 MG; Start 06/07/19 at 09:30 Atorvastatin Calcium (Lipitor) 80 mg QHS PO Last administered on 06/08/19 20:56; Admin Dose 80 MG; Start 06/07/19 at 21:00 Carvedilol (Coreg) 6.25 mg BID PO Last administered on 06/09/19 08:34; Admin Dose 6.25 MG; Start 06/07/19 at 09:30 Sacubitril/ Valsartan (Entresto 24 Mg-26 Mg) 1 tab BID PO Last administered on 06/09/19 08:34; Admin Dose 1 TAB; Start 06/07/19 at 09:30 Albuterol/ Ipratropium (Duoneb) 3 ml Q6HWA RESP THERAPY HHN Last administered on 06/09/19 08:40; Admin Dose 3 ML; Start 06/07/19 at 14:00 Furosemide (Lasix) 20 mg BID IV Last administered on 06/09/19 08:34; Admin Dose 20 MG; Start 06/08/19 at 21:00 Assessment/Plan Hospital Course (Demo Recall) 1. Cardiomyopathy. Patient with known cardiomyopathy, ischemic. Not clear if he has been compliant with his therapy. I will resume his medications now. Con't to follow with gentl diuresis. 2. Biventricular implantable cardioverter-defibrillator, appears to be with good function now. ICd with good fxn. 3. Hypertension. Blood pressure well controlled. Continue to adjust medicines as indicated. Treated. 4. Congestive heart failure, [id number]. Gentle diuresis . The patient was on Mathieu and other life-preserving medications. Better by exam. 5. Psychiatric illness. Defer to primary team. Continue to adjust psychiatric medications. NO agitation now, 6. Anemia. Hemoglobin is fairly stable. H/H stable. ROMINA BUTCHER MD Jun 09, 2019 12:26
[2019-06-09] MEDS: QUETIAPINE 25 MG TAB PO SCH (21:20)
[2019-06-09] MEDS: ATORVASTATIN 80 MG TAB PO SCH (21:20)
[2019-06-10 04:01] VITALS: BP 110/60; PULSE 65; RESP 20
[2019-06-10 07:32] VITALS: BP 121/68; PULSE 61; RESP 20
[2019-06-10] MEDS: predniSONE 20 MG TAB PO SCH (08:18)
[2019-06-10] MEDS: FUROSEMIDE 20 MG INJ IV SCH ×2 (08:18→20:43)
[2019-06-10] MEDS: SACUBITRIL/VALSARTAN (24mg-26mg) TABLET PO SCH ×2 (08:18→20:43)
[2019-06-10] MEDS: ASPIRIN (EC) 81 MG TAB PO SCH (08:18)
[2019-06-10] MEDS: HEPARIN 5,000 UNIT/1 ML VIAL SC SCH ×2 (08:25→21:00)
[2019-06-10] MEDS: ALBUTEROL/IPRATROPIUM (NEB) 3 ML AMP HHN SCH ×3 (08:25→19:28)
[2019-06-10 11:13] VITALS: BP 117/63; PULSE 67; RESP 20
--- NOTE | 2019-06-10 14:29 | CONS ---
Assessment/Plan Assessment/Plan Hospital Course (Demo Recall) IMP: 1.CHF-systolic acute on chronic. Neg trop x 3 2.Cardiomyopathy-last known 20% 3.H/O ICD 4.HTN 5.HL 6.secondary to #1 7.Psych 8. edema-assymetric- no DVT by LE venous DEVONTE Recc: -Tele -serial ecg's -Continue coreg/entresto -Continue lasix diuresis to BID -Continue statin/asa -Continue steroids/bronchodilators Consultation Date/Type/Reason Admit Date/Time Jun 07, 2019 at 11:24 Initial Consult Date 06/07/19 Type of Consult Cardiology Reason for Consultation CHF Requesting Provider: CARMELA BUENO MD Date/Time of Note DATE: 06/10/19 TIME: 14:27 Exam/Review of Systems Vital Signs Vitals Vital Signs Date Temp Pulse Resp B/P (MAP) Pulse Ox O2 O2 Flow FiO2 Time Delivery Rate 06/10/19 60 18 96 21 14:17 06/10/19 97.8 117/63 Room Air 11:13 (81) 06/06/19 2 16:15 Intake and Output 06/09/19 06/09/19 06/10/19 1515:00 23:00 07:00 IntakeIntake Total 1520 ml 400 ml 1680 ml BalanceBalance 1520 ml 400 ml 1680 ml Exam Exam Review of Systems: CONSTITUTIONAL: No fevers, chills. PULMONARY: mild sob-improving slowly CARDIOVASCULAR: No chest pain/palpitations GASTROINTESTINAL: No nausea/vomiting. GENITOURINARY: No hematuria/dysuria. MUSCULOSKELETAL: No myagias/arthalgias. PSYCHIATRIC: The patient denies depression. NEUROLOGIC: No weakness Constitutional: alert Psych: no complaints Head: normocephalic ENMT: mucosa pink and moist Neck: supple, jvd (9-10 cm water) Respiratory: diminished breath sounds (at bases/B) Cardiovascular: regular rate and rhythm Gastrointestinal: soft, non-tender Musculoskeletal: muscle tone (normal) Extremities: pitting pedal edema (L>R) Neurological: focal weakness (none) Labs Result Diagram: 06/10/19 0509 06/10/19 0509 Results 24hrs Laboratory Tests Test 06/10/19 05:09 White Blood Count 9.3 # Red Blood Count 4.78 Hemoglobin 12.1 L Hematocrit 39.0 L Mean Corpuscular Volume 81.6 L Mean Corpuscular Hemoglobin 25.3 L Mean Corpuscular Hemoglobin Concent 31.0 L Red Cell Distribution Width 18.0 H Platelet Count 244 Mean Platelet Volume 11.4 H Immature Granulocytes % 0.400 Neutrophils % 78.3 H Lymphocytes % 11.1 L Monocytes % 8.0 Eosinophils % 1.6 Basophils % 0.6 Nucleated Red Blood Cells % 0.0 Immature Granulocytes # 0.040 H Neutrophils # 7.3 Lymphocytes # 1.0 Monocytes # 0.7 Eosinophils # 0.2 Basophils # 0.1 Nucleated Red Blood Cells # 0.0 Sodium Level 140 Potassium Level 4.5 Chloride Level 105 Carbon Dioxide Level 31 Anion Gap 4 L Blood Urea Nitrogen 40 H Creatinine 1.24 Glucose Level 168 Calcium Level 8.9 Phosphorus Level 3.6 Magnesium Level 1.8 Albumin 2.9 L Medications Medications Current Medications IV Flush (NS 3 ml) 3 ml PER PROTOCOL IV ; Start 06/07/19 at 00:30 Ondansetron HCl (Zofran Inj) 4 mg Q6H PRN IV NAUSEA/VOMITING; Start 06/07/19 at 00:30 Nitroglycerin (Nitroglycerin (Sl Tab) 0.4 Mg) 1 tab Q5M PRN SL .CHEST PAIN; Start 06/07/19 at 00:30 Heparin Sodium (Porcine) (Heparin (5000 Units/1ml)) 5,000 unit Q12 SC Last administered on 06/10/19at 08:25; Admin Dose 5,000 UNIT; Start 06/07/19 at 09:00 Albuterol/ Ipratropium (Duoneb) 3 ml Q2H RESP THERAPY PRN HHN SHORTNESS OF BREATH; Start 06/07/19 at 00:30 Acetaminophen (Tylenol Tab) 500 mg Q6H PRN PO MILD PAIN(1-3)OR ELEVATED TEMP; Start 06/07/19 at 00:30 Quetiapine Fumarate (Seroquel) 50 mg HS PO Last administered on 06/09/19at 21:20; Admin Dose 50 MG; Start 06/07/19 at 21:00 Prednisone (Prednisone) 20 mg DAILY PO Last administered on 06/10/19at 08:18; Admin Dose 20 MG; Start 06/07/19 at 09:30; Stop 06/11/19 at 09:00 Aspirin (Halfprin) 81 mg DAILY PO Last administered on 06/10/19 08:18; Admin Dose 81 MG; Start 06/07/19 at 09:30 Atorvastatin Calcium (Lipitor) 80 mg QHS PO Last administered on 06/09/19 21:20; Admin Dose 80 MG; Start 06/07/19 at 21:00 Carvedilol (Coreg) 6.25 mg BID PO Last administered on 06/10/19 08:18; Admin Dose 6.25 MG; Start 06/07/19 at 09:30 Sacubitril/ Valsartan (Entresto 24 Mg-26 Mg) 1 tab BID PO Last administered on 06/10/19 08:18; Admin Dose 1 TAB; Start 06/07/19 at 09:30 Albuterol/ Ipratropium (Duoneb) 3 ml Q6HWA RESP THERAPY HHN Last administered on 06/10/19 14:17; Admin Dose 3 ML; Start 06/07/19 at 14:00 Furosemide (Lasix) 20 mg BID IV Last administered on 06/10/19 08:18; Admin Dose 20 MG; Start 06/08/19 at 21:00 OTIS HORAN Jun 10, 2019 14:29
[2019-06-10 15:05] VITALS: BP 121/72; PULSE 64; RESP 20
--- NOTE | 2019-06-10 15:36 | PN ---
Date/Time of Note Date/Time of Note DATE: 06/10/19 TIME: 15:34 Assessment/Plan VTE Prophylaxis Risk score (from Ns)>0 risk: 4 SCD applied (from [facility] No SCD contraindicated: other Pharmacological prophylaxis: heparin Lines/Catheters IV C[facility] Type [facility]from [facility] Saline Lock Urinary Cath still in place: No Assessment/Plan Assessment/Plan 1. Acute on chronic CHF exacerbation, systolic - Cardiology on board and appreciate consultation. Adjustments made to diur etics and will continue monitoring I/O and daily weights. 2. Acute chest discomfort- resolved - most likely secondary to medication noncompliance - ACS ruled out with EKG neg for ST changes and negative serial troponins 3. Cardiomyopathy - EF of 20% 4. COPD exacerbation - Duonebs - O2 as needed 5. HTN - continue BP medications - stable 6. Dyslipidemia - continue on statin 7. Homeless - SW consultation appreciated and awaiting acceptance to [facility] 8. Disposition - Continue diuresing and monitor I/Os - SW on board for assistance with placement Result Diagram: 06/10/19 0509 06/10/19 0509 Results 24hrs Laboratory Tests Test 06/10/19 05:09 White Blood Count 9.3 # Red Blood Count 4.78 Hemoglobin 12.1 L Hematocrit 39.0 L Mean Corpuscular Volume 81.6 L Mean Corpuscular Hemoglobin 25.3 L Mean Corpuscular Hemoglobin Concent 31.0 L Red Cell Distribution Width 18.0 H Platelet Count 244 Mean Platelet Volume 11.4 H Immature Granulocytes % 0.400 Neutrophils % 78.3 H Lymphocytes % 11.1 L Monocytes % 8.0 Eosinophils % 1.6 Basophils % 0.6 Nucleated Red Blood Cells % 0.0 Immature Granulocytes # 0.040 H Neutrophils # 7.3 Lymphocytes # 1.0 Monocytes # 0.7 Eosinophils # 0.2 Basophils # 0.1 Nucleated Red Blood Cells # 0.0 Sodium Level 140 Potassium Level 4.5 Chloride Level 105 Carbon Dioxide Level 31 Anion Gap 4 L Blood Urea Nitrogen 40 H Creatinine 1.24 Glucose Level 168 Calcium Level 8.9 Phosphorus Level 3.6 Magnesium Level 1.8 Albumin 2.9 L Subjective 24 Hr Interval Summary Free Text/Dictation Patient states he's feeling better and still urinating often. no acute overnight events. Exam/Review of Systems Exam Vitals Vital Signs Date Temp Pulse Resp B/P (MAP) Pulse Ox O2 O2 Flow FiO2 Time Delivery Rate 06/10/19 97.5 64 20 121/72 96 Room Air 15:05 (88) 06/10/19 21 14:17 06/06/19 2 16:15 Intake and Output 06/09/19 06/09/19 06/10/19 1515:00 23:00 07:00 IntakeIntake Total 1520 ml 400 ml 1680 ml BalanceBalance 1520 ml 400 ml 1680 ml Exam General: Patient is sitting in chair at bedside. no acute distress Neck: Supple, no JVD Respiratory: Diminished at bases. no crackles or wheezing appreciated Cardiovascular: Regular rate and rhythm, no obvious murmurs Gastrointestinal: soft, non-tender to palpation, nondistended, bowel sounds heard. Ext: +1 pitting edema LLE, trace RLE. no cyanosis or clubbing Skin: No new skin lesions Results Results 24hrs Laboratory Tests Test 06/10/19 05:09 White Blood Count 9.3 # Red Blood Count 4.78 Hemoglobin 12.1 L Hematocrit 39.0 L Mean Corpuscular Volume 81.6 L Mean Corpuscular Hemoglobin 25.3 L Mean Corpuscular Hemoglobin Concent 31.0 L Red Cell Distribution Width 18.0 H Platelet Count 244 Mean Platelet Volume 11.4 H Immature Granulocytes % 0.400 Neutrophils % 78.3 H Lymphocytes % 11.1 L Monocytes % 8.0 Eosinophils % 1.6 Basophils % 0.6 Nucleated Red Blood Cells % 0.0 Immature Granulocytes # 0.040 H Neutrophils # 7.3 Lymphocytes # 1.0 Monocytes # 0.7 Eosinophils # 0.2 Basophils # 0.1 Nucleated Red Blood Cells # 0.0 Sodium Level 140 Potassium Level 4.5 Chloride Level 105 Carbon Dioxide Level 31 Anion Gap 4 L Blood Urea Nitrogen 40 H Creatinine 1.24 Glucose Level 168 Calcium Level 8.9 Phosphorus Level 3.6 Magnesium Level 1.8 Albumin 2.9 L Medications Medication Current Medications IV Flush (NS 3 ml) 3 ml PER PROTOCOL IV ; Start 06/07/19 at 00:30 Ondansetron HCl (Zofran Inj) 4 mg Q6H PRN IV NAUSEA/VOMITING; Start 06/07/19 at 00:30 Nitroglycerin (Nitroglycerin (Sl Tab) 0.4 Mg) 1 tab Q5M PRN SL .CHEST PAIN; Start 06/07/19 at 00:30 Heparin Sodium (Porcine) (Heparin (5000 Units/1ml)) 5,000 unit Q12 SC Last administered on 06/10/19 08:25; Admin Dose 5,000 UNIT; Start 06/07/19 at 09:00 Albuterol/ Ipratropium (Duoneb) 3 ml Q2H RESP THERAPY PRN HHN SHORTNESS OF BREATH; Start 06/07/19 at 00:30 Acetaminophen (Tylenol Tab) 500 mg Q6H PRN PO MILD PAIN(1-3)OR ELEVATED TEMP; Start 06/07/19 at 00:30 Quetiapine Fumarate (Seroquel) 50 mg HS PO Last administered on 06/09/19 21:20; Admin Dose 50 MG; Start 06/07/19 at 21:00 Prednisone (Prednisone) 20 mg DAILY PO Last administered on 06/10/19 08:18; Admin Dose 20 MG; Start 06/07/19 at 09:30; Stop 06/11/19 at 09:00 Aspirin (Halfprin) 81 mg DAILY PO Last administered on 06/10/19 08:18; Admin Dose 81 MG; Start 06/07/19 at 09:30 Atorvastatin Calcium (Lipitor) 80 mg QHS PO Last administered on 06/09/19 21:20; Admin Dose 80 MG; Start 06/07/19 at 21:00 Carvedilol (Coreg) 6.25 mg BID PO Last administered on 06/10/19 08:18; Admin Dose 6.25 MG; Start 06/07/19 at 09:30 Sacubitril/ Valsartan (Entresto 24 Mg-26 Mg) 1 tab BID PO Last administered on 06/10/19 08:18; Admin Dose 1 TAB; Start 06/07/19 at 09:30 Albuterol/ Ipratropium (Duoneb) 3 ml Q6HWA RESP THERAPY HHN Last administered on 06/10/19 14:17; Admin Dose 3 ML; Start 06/07/19 at 14:00 Furosemide (Lasix) 20 mg BID IV Last administered on 06/10/19 08:18; Admin Dose 20 MG; Start 06/08/19 at 21:00 BEV DOWNEY MD Jun 10, 2019 15:36
[2019-06-10 19:55] VITALS: BP 131/72; PULSE 80; RESP 20
[2019-06-10] MEDS: QUETIAPINE 25 MG TAB PO SCH (20:44)
[2019-06-10] MEDS: ATORVASTATIN 80 MG TAB PO SCH (20:44)
[2019-06-11] VITALS (7 sets, daily range): BP systolic 90–127; BP diastolic 58–77; PULSE 62–83; RESP 17–24
[2019-06-11] MEDS: ALBUTEROL/IPRATROPIUM (NEB) 3 ML AMP HHN SCH ×3 (08:00→19:25)
[2019-06-11] MEDS: ASPIRIN (EC) 81 MG TAB PO SCH (08:54)
[2019-06-11] MEDS: predniSONE 20 MG TAB PO SCH (08:54)
[2019-06-11] MEDS: SACUBITRIL/VALSARTAN (24mg-26mg) TABLET PO SCH ×2 (08:54→22:34)
[2019-06-11] MEDS: FUROSEMIDE 20 MG INJ IV SCH ×2 (08:55→22:33)
[2019-06-11] MEDS: HEPARIN 5,000 UNIT/1 ML VIAL SC SCH ×2 (09:02→22:45)
--- NOTE | 2019-06-11 09:35 | PN ---
Date/Time of Note Date/Time of Note DATE: 06/11/19 TIME: 09:32 Assessment/Plan VTE Prophylaxis Risk score (from Ns)>0 risk: 4 SCD applied (from Ns): No SCD contraindicated: low risk/ambulating Pharmacological prophylaxis: heparin Lines/Catheters IV Catheter Type (from Nrs): Saline Lock Urinary Cath still in place: No Assessment/Plan Assessment/Plan 1. Acute on chronic CHF exacerbation, systolic - Cardiology on board and appreciate consultation. Continue diuresing and explained patient need for BID dosing since requested daily dosing - continue monitoring I/O and daily weights 2. Acute chest discomfort- resolved - most likely secondary to medication noncompliance - ACS ruled out with EKG neg for ST changes and negative serial troponins 3. Cardiomyopathy - EF of 20% 4. COPD exacerbation - Duonebs - O2 as needed 5. HTN - continue BP medications - stable 6. Dyslipidemia - continue on statin 7. Homeless - SW consultation appreciated and awaiting acceptance to [facility] 8. Disposition - Continue diuresing and monitor I/Os - Once accepted to [facility], will transition to PO medications. Will need medications delivered prior to dc as well Result Diagram: 06/11/19 0510 06/11/19 0510 Results 24hrs Laboratory Tests Test 06/11/19 02:27 06/11/19 05:10 White Blood Count 9.8 10.3 Red Blood Count 4.79 5.05 Hemoglobin 12.2 L 12.8 L Hematocrit 38.4 L 40.5 L Mean Corpuscular Volume 80.2 L 80.2 L Mean Corpuscular Hemoglobin 25.5 L 25.3 L Mean Corpuscular Hemoglobin Concent 31.8 L 31.6 L Red Cell Distribution Width 17.7 H 17.9 H Platelet Count 240 272 Mean Platelet Volume 10.8 H 11.4 H Immature Granulocytes % 0.500 H 0.500 H Neutrophils % 79.9 H 77.6 H Lymphocytes % 10.3 L 11.9 L Monocytes % 8.0 7.7 Eosinophils % 0.9 1.7 Basophils % 0.4 0.6 Nucleated Red Blood Cells % 0.0 0.0 Immature Granulocytes # 0.050 H 0.050 H Neutrophils # 7.8 H 8.0 H Lymphocytes # 1.0 1.2 Monocytes # 0.8 0.8 Eosinophils # 0.1 0.2 Basophils # 0.0 0.1 Nucleated Red Blood Cells # 0.0 0.0 Sodium Level 139 139 Potassium Level 4.2 4.2 Chloride Level 103 104 Carbon Dioxide Level 31 30 Anion Gap 5 5 Blood Urea Nitrogen 42 H 42 H Creatinine 0.99 0.99 Est Glomerular Filtrat Rate mL/min > 60 Glucose Level 113 # 99 Calcium Level 8.7 9.1 Magnesium Level 2.0 1.9 Phosphorus Level 4.1 Albumin 3.3 Subjective 24 Hr Interval Summary Free Text/Dictation Patient states he's experiencing some shortness of breath but improves after breathing tx. Coughing up clear sputum and denies any wheezing or fevers. Denies any chest pain. Exam/Review of Systems Exam Vitals Vital Signs Date Temp Pulse Resp B/P (MAP) Pulse Ox O2 O2 Flow FiO2 Time Delivery Rate 06/11/19 98.0 72 20 109/59 98 Nasal 07:50 (76) Cannula 06/10/19 21 19:28 Intake and Output 06/10/19 06/10/19 06/11/19 1515:00 23:00 07:00 IntakeIntake Total 720 ml 480 ml 700 ml BalanceBalance 720 ml 480 ml 700 ml Exam General: Patient is sitting in chair at bedside. no acute distress Neck: Supple, no JVD Respiratory: Diminished at bases. no crackles or wheezing appreciated Cardiovascular: Regular rate and rhythm, no obvious murmurs Gastrointestinal: soft, non-tender to palpation, nondistended, bowel sounds heard. Ext: trace pitting edema LE. no cyanosis or clubbing Skin: No new skin lesions Results Results 24hrs Laboratory Tests Test 06/11/19 02:27 06/11/19 05:10 White Blood Count 9.8 10.3 Red Blood Count 4.79 5.05 Hemoglobin 12.2 L 12.8 L Hematocrit 38.4 L 40.5 L Mean Corpuscular Volume 80.2 L 80.2 L Mean Corpuscular Hemoglobin 25.5 L 25.3 L Mean Corpuscular Hemoglobin Concent 31.8 L 31.6 L Red Cell Distribution Width 17.7 H 17.9 H Platelet Count 240 272 Mean Platelet Volume 10.8 H 11.4 H Immature Granulocytes % 0.500 H 0.500 H Neutrophils % 79.9 H 77.6 H Lymphocytes % 10.3 L 11.9 L Monocytes % 8.0 7.7 Eosinophils % 0.9 1.7 Basophils % 0.4 0.6 Nucleated Red Blood Cells % 0.0 0.0 Immature Granulocytes # 0.050 H 0.050 H Neutrophils # 7.8 H 8.0 H Lymphocytes # 1.0 1.2 Monocytes # 0.8 0.8 Eosinophils # 0.1 0.2 Basophils # 0.0 0.1 Nucleated Red Blood Cells # 0.0 0.0 Sodium Level 139 139 Potassium Level 4.2 4.2 Chloride Level 103 104 Carbon Dioxide Level 31 30 Anion Gap 5 5 Blood Urea Nitrogen 42 H 42 H Creatinine 0.99 0.99 Est Glomerular Filtrat Rate mL/min > 60 Glucose Level 113 # 99 Calcium Level 8.7 9.1 Magnesium Level 2.0 1.9 Phosphorus Level 4.1 Albumin 3.3 Medications Medication Current Medications IV Flush (NS 3 ml) 3 ml PER PROTOCOL IV ; Start 06/07/19 at 00:30 Ondansetron HCl (Zofran Inj) 4 mg Q6H PRN IV NAUSEA/VOMITING; Start 06/07/19 at 00:30 Nitroglycerin (Nitroglycerin (Sl Tab) 0.4 Mg) 1 tab Q5M PRN SL .CHEST PAIN; Start 06/07/19 at 00:30 Heparin Sodium (Porcine) (Heparin (5000 Units/1ml)) 5,000 unit Q12 SC Last administered on 06/11/19at 09:02; Admin Dose 5,000 UNIT; Start 06/07/19 at 09:00 Albuterol/ Ipratropium (Duoneb) 3 ml Q2H RESP THERAPY PRN HHN SHORTNESS OF BREATH; Start 06/07/19 at 00:30 Acetaminophen (Tylenol Tab) 500 mg Q6H PRN PO MILD PAIN(1-3)OR ELEVATED TEMP; Start 06/07/19 at 00:30 Quetiapine Fumarate (Seroquel) 50 mg HS PO Last administered on 06/10/19at 20:44; Admin Dose 50 MG; Start 06/07/19 at 21:00 Aspirin (Halfprin) 81 mg DAILY PO Last administered on 06/11/19at 08:54; Admin Dose 81 MG; Start 06/07/19 at 09:30 Atorvastatin Calcium (Lipitor) 80 mg QHS PO Last administered on 06/10/19at 20: 44; Admin Dose 80 MG; Start 06/07/19 at 21:00 Carvedilol (Coreg) 6.25 mg BID PO Last administered on 06/11/19 08:54; Admin Dose 6.25 MG; Start 06/07/19 at 09:30 Sacubitril/ Valsartan (Entresto 24 Mg-26 Mg) 1 tab BID PO Last administered on 06/11/19 08:54; Admin Dose 1 TAB; Start 06/07/19 at 09:30 Albuterol/ Ipratropium (Duoneb) 3 ml Q6HWA RESP THERAPY HHN Last administered on 06/10/19 19:28; Admin Dose 3 ML; Start 06/07/19 at 14:00 Furosemide (Lasix) 20 mg BID IV Last administered on 06/11/19 08:55; Admin Dose 20 MG; Start 06/08/19 at 21:00 BEV DOWNEY MD Jun 11, 2019 09:35
[2019-06-11] MEDS ORDERED: ASPI-817 PO (13:53)
[2019-06-11] MEDS ORDERED: QUET50TA22 PO (13:53)
[2019-06-11] MEDS ORDERED: ACET-141 PO (13:53)
[2019-06-11] MEDS ORDERED: FURO40TA4 PO (13:53)
[2019-06-11] MEDS ORDERED: SACU1TAB PO (13:53)
[2019-06-11] MEDS ORDERED: CARV6.2579 PO (13:53)
[2019-06-11] MEDS ORDERED: ATOR-2 PO (13:53)
[2019-06-11] MEDS ORDERED: DULO30CA47 PO (13:56)
--- NOTE | 2019-06-11 19:01 | CONS ---
Assessment/Plan Assessment/Plan Hospital Course (Demo Recall) IMP: 1.CHF-systolic acute on chronic. Neg trop x 3 2.Cardiomyopathy-last known 20% 3.H/O ICD 4.HTN 5.HL 6.secondary to #1 7.Psych 8. edema-assymetric- no DVT by LE venous DEVONTE 9. NSVT-episode, self limited Recc: -Tele -serial ecg's -Continue coreg and consider slight increase to further suppress NSVT and entresto -Continue lasix diuresis to BID -Continue statin/asa -Continue bronchodilators -steroids d/c'd -check repeat echo to reassess EF -Give magnesium IV repletion and in general keep K>4 and Mg>2 Consultation Date/Type/Reason Admit Date/Time Jun 07, 2019 at 11:24 Initial Consult Date 06/07/19 Type of Consult Cardiology Reason for Consultation cardiomyopathy/CHF Requesting Provider: CARMELA BUENO MD Date/Time of Note DATE: 06/11/19 TIME: 18:57 Exam/Review of Systems Vital Signs Vitals Vital Signs Date Temp Pulse Resp B/P (MAP) Pulse Ox O2 O2 Flow FiO2 Time Delivery Rate 06/11/19 98.0 70 20 107/69 96 Room Air 15:03 (82) 06/11/19 21 13:31 Intake and Output 06/10/19 06/10/19 06/11/19 1414:59 22:59 06:59 IntakeIntake Total 720 ml 480 ml 700 ml BalanceBalance 720 ml 480 ml 700 ml Exam Exam Review of Systems: CONSTITUTIONAL: No fevers, chills. PULMONARY: No sob CARDIOVASCULAR: No chest pain/palpitations GASTROINTESTINAL: No nausea/vomiting. GENITOURINARY: No hematuria/dysuria. MUSCULOSKELETAL: No myagias/arthalgias. PSYCHIATRIC: The patient denies depression. NEUROLOGIC: No weakness Constitutional: alert Psych: no complaints Head: normocephalic ENMT: mucosa pink and moist Neck: supple, jvd (9 cm water) Respiratory: clear to auscultation Cardiovascular: regular rate and rhythm Gastrointestinal: soft, non-tender Musculoskeletal: muscle tone (normal) Extremities: pitting pedal edema (bilateral LE) Neurological: other (No focal deficits) Labs Result Diagram: 06/11/19 0510 06/11/19 0510 Results 24hrs Laboratory Tests Test 06/11/19 02:27 06/11/19 05:10 White Blood Count 9.8 10.3 Red Blood Count 4.79 5.05 Hemoglobin 12.2 L 12.8 L Hematocrit 38.4 L 40.5 L Mean Corpuscular Volume 80.2 L 80.2 L Mean Corpuscular Hemoglobin 25.5 L 25.3 L Mean Corpuscular Hemoglobin Concent 31.8 L 31.6 L Red Cell Distribution Width 17.7 H 17.9 H Platelet Count 240 272 Mean Platelet Volume 10.8 H 11.4 H Immature Granulocytes % 0.500 H 0.500 H Neutrophils % 79.9 H 77.6 H Lymphocytes % 10.3 L 11.9 L Monocytes % 8.0 7.7 Eosinophils % 0.9 1.7 Basophils % 0.4 0.6 Nucleated Red Blood Cells % 0.0 0.0 Immature Granulocytes # 0.050 H 0.050 H Neutrophils # 7.8 H 8.0 H Lymphocytes # 1.0 1.2 Monocytes # 0.8 0.8 Eosinophils # 0.1 0.2 Basophils # 0.0 0.1 Nucleated Red Blood Cells # 0.0 0.0 Sodium Level 139 139 Potassium Level 4.2 4.2 Chloride Level 103 104 Carbon Dioxide Level 31 30 Anion Gap 5 5 Blood Urea Nitrogen 42 H 42 H Creatinine 0.99 0.99 Est Glomerular Filtrat Rate mL/min > 60 Glucose Level 113 # 99 Calcium Level 8.7 9.1 Magnesium Level 2.0 1.9 Phosphorus Level 4.1 Albumin 3.3 Medications Medications Current Medications IV Flush (NS 3 ml) 3 ml PER PROTOCOL IV ; Start 06/07/19 at 00:30 Ondansetron HCl (Zofran Inj) 4 mg Q6H PRN IV NAUSEA/VOMITING; Start 06/07/19 at 00:30 Nitroglycerin (Nitroglycerin (Sl Tab) 0.4 Mg) 1 tab Q5M PRN SL .CHEST PAIN; Start 06/07/19 at 00:30 Heparin Sodium (Porcine) (Heparin (5000 Units/1ml)) 5,000 unit Q12 SC Last administered on 06/11/19at 09:02; Admin Dose 5,000 UNIT; Start 06/07/19 at 09:00 Albuterol/ Ipratropium (Duoneb) 3 ml Q2H RESP THERAPY PRN N SHORTNESS OF BREATH; Start 06/07/19 at 00:30 Acetaminophen (Tylenol Tab) 500 mg Q6H PRN PO MILD PAIN(1-3)OR ELEVATED TEMP; Start 06/07/19 at 00:30 Quetiapine Fumarate (Seroquel) 50 mg HS PO Last administered on 06/10/19 20:44; Admin Dose 50 MG; Start 06/07/19 at 21:00 Aspirin (Halfprin) 81 mg DAILY PO Last administered on 06/11/19 08:54; Admin Dose 81 MG; Start 06/07/19 at 09:30 Atorvastatin Calcium (Lipitor) 80 mg QHS PO Last administered on 06/10/19 20:44; Admin Dose 80 MG; Start 06/07/19 at 21:00 Carvedilol (Coreg) 6.25 mg BID PO Last administered on 06/11/19 08:54; Admin Dose 6.25 MG; Start 06/07/19 at 09:30 Sacubitril/ Valsartan (Entresto 24 Mg-26 Mg) 1 tab BID PO Last administered on 06/11/19 08:54; Admin Dose 1 TAB; Start 06/07/19 at 09:30 Albuterol/ Ipratropium (Duoneb) 3 ml Q6HWA RESP THERAPY HHN Last administered on 06/11/19 13:30; Admin Dose 3 ML; Start 06/07/19 at 14:00 Furosemide (Lasix) 20 mg BID IV Last administered on 06/11/19 08:55; Admin Dose 20 MG; Start 06/08/19 at 21:00 OTIS HORAN Jun 11, 2019 19:01
[2019-06-11] MEDS ORDERED: MAGNESIUM SULFATE 2 GM/50 ML 50 ML IVPB ONE (19:30)
[2019-06-11] MEDS: ATORVASTATIN 80 MG TAB PO SCH (22:33)
[2019-06-11] MEDS: QUETIAPINE 25 MG TAB PO SCH (22:33)
[2019-06-12 04:18] VITALS: BP 99/54; PULSE 80; RESP 20
[2019-06-12 07:13] VITALS: BP 110/53; PULSE 66; RESP 18
[2019-06-12] MEDS: ALBUTEROL/IPRATROPIUM (NEB) 3 ML AMP HHN SCH (08:14)
[2019-06-12] MEDS: SACUBITRIL/VALSARTAN (24mg-26mg) TABLET PO SCH (08:33)
[2019-06-12] MEDS: ASPIRIN (EC) 81 MG TAB PO SCH (08:34)
[2019-06-12] MEDS: FUROSEMIDE 20 MG INJ IV SCH (08:34)
[2019-06-12] MEDS: HEPARIN 5,000 UNIT/1 ML VIAL SC SCH (08:40)
--- NOTE | 2019-06-12 09:07 | PN ---
Date/Time of Note Date/Time of Note DATE: 06/12/19 TIME: 09:06 Assessment/Plan VTE Prophylaxis Risk score (from Ns)>0 risk: 3 SCD applied (from Ns): No SCD contraindicated: low risk/ambulating Pharmacological prophylaxis: NA/contraindicated Pharm contraindication: low risk/ambulating Lines/Catheters IV [facility] (from [facility] Saline Lock Urinary Cath still in place: No Assessment/Plan Assessment/Plan 1. Acute on chronic CHF exacerbation, systolic- improved - Cardiology on board and appreciate consultation. okay for discharge on Lasix 40mg PO BID - continue monitoring I/O and daily weights 2. Acute chest discomfort- resolved - most likely secondary to medication noncompliance - ACS ruled out with EKG neg for ST changes and negative serial troponins 3. Cardiomyopathy - EF of 20% 4. COPD exacerbation - Duonebs - O2 as needed 5. HTN - continue BP medications - stable 6. Dyslipidemia - continue on statin 7. Homeless - consultation appreciated and accepted to [facility] 8. Disposition - Medically stable for discharge Result Diagram: 06/12/19 0537 06/12/19 0537 Results 24hrs Laboratory Tests Test 06/12/19 05:37 White Blood Count 10.0 Red Blood Count 4.96 Hemoglobin 12.5 L Hematocrit 40.3 L Mean Corpuscular Volume 81.3 L Mean Corpuscular Hemoglobin 25.2 L Mean Corpuscular Hemoglobin Concent 31.0 L Red Cell Distribution Width 18.4 H Platelet Count 264 Mean Platelet Volume 11.2 H Immature Granulocytes % 0.800 H Neutrophils % 77.9 H Lymphocytes % 12.5 L Monocytes % 6.9 Eosinophils % 1.4 Basophils % 0.5 Nucleated Red Blood Cells % 0.0 Immature Granulocytes # 0.080 H Neutrophils # 7.8 H Lymphocytes # 1.3 Monocytes # 0.7 Eosinophils # 0.1 Basophils # 0.1 Nucleated Red Blood Cells # 0.0 Sodium Level 136 Potassium Level 4.1 Chloride Level 101 Carbon Dioxide Level 28 Anion Gap 7 Blood Urea Nitrogen 43 H Creatinine 1.14 Glucose Level 235 #H Calcium Level 8.8 Phosphorus Level 4.1 Magnesium Level 2.3 Albumin 3.1 L Subjective 24 Hr Interval Summary Free Text/Dictation Patient is doing well and denies any acute issues. No acute overnight events. Exam/Review of Systems Exam Vitals Vital Signs Date Temp Pulse Resp B/P (MAP) Pulse Ox O2 O2 Flow FiO2 Time Delivery Rate 06/12/19 67 20 95 21 08:00 06/12/19 98.0 110/53 Room Air 07:13 (72) Intake and Output 06/11/19 06/11/19 06/12/19 1515:00 23:00 07:00 IntakeIntake Total 400 ml 1470 ml 1280 ml OutputOutput Total 300 ml 900 ml BalanceBalance 100 ml 570 ml 1280 ml Exam General: Patient is ambulating around room Neck: Supple, no JVD Respiratory: Diminished at bases. no crackles or wheezing appreciated Cardiovascular: Regular rate and rhythm, no obvious murmurs Gastrointestinal: soft, non-tender to palpation, nondistended, bowel sounds heard. Ext: trace pitting edema RLE, 1+ LLE. no cyanosis or clubbing Skin: No new skin lesions Results Results 24hrs Laboratory Tests Test 06/12/19 05:37 White Blood Count 10.0 Red Blood Count 4.96 Hemoglobin 12.5 L Hematocrit 40.3 L Mean Corpuscular Volume 81.3 L Mean Corpuscular Hemoglobin 25.2 L Mean Corpuscular Hemoglobin Concent 31.0 L Red Cell Distribution Width 18.4 H Platelet Count 264 Mean Platelet Volume 11.2 H Immature Granulocytes % 0.800 H Neutrophils % 77.9 H Lymphocytes % 12.5 L Monocytes % 6.9 Eosinophils % 1.4 Basophils % 0.5 Nucleated Red Blood Cells % 0.0 Immature Granulocytes # 0.080 H Neutrophils # 7.8 H Lymphocytes # 1.3 Monocytes # 0.7 Eosinophils # 0.1 Basophils # 0.1 Nucleated Red Blood Cells # 0.0 Sodium Level 136 Potassium Level 4.1 Chloride Level 101 Carbon Dioxide Level 28 Anion Gap 7 Blood Urea Nitrogen 43 H Creatinine 1.14 Glucose Level 235 #H Calcium Level 8.8 Phosphorus Level 4.1 Magnesium Level 2.3 Albumin 3.1 L Medications Medication Current Medications IV Flush (NS 3 ml) 3 ml PER PROTOCOL IV ; Start 06/07/19 at 00:30 Ondansetron HCl (Zofran Inj) 4 mg Q6H PRN IV NAUSEA/VOMITING; Start 06/07/19 at 00:30 Nitroglycerin (Nitroglycerin (Sl Tab) 0.4 Mg) 1 tab Q5M PRN SL .CHEST PAIN; Start 06/07/19 at 00:30 Heparin Sodium (Porcine) (Heparin (5000 Units/1ml)) 5,000 unit Q12 SC Last administered on 06/12/19 08:40; Admin Dose 5,000 UNIT; Start 06/07/19 at 09:00 Albuterol/ Ipratropium (Duoneb) 3 ml Q2H RESP THERAPY PRN HHN SHORTNESS OF BREATH; Start 06/07/19 at 00:30 Acetaminophen (Tylenol Tab) 500 mg Q6H PRN PO MILD PAIN(1-3)OR ELEVATED TEMP; Start 06/07/19 at 00:30 Quetiapine Fumarate (Seroquel) 50 mg HS PO Last administered on 06/11/19 22:3 3; Admin Dose 50 MG; Start 06/07/19 at 21:00 Aspirin (Halfprin) 81 mg DAILY PO Last administered on 06/12/19 08:34; Admin Dose 81 MG; Start 06/07/19 at 09:30 Atorvastatin Calcium (Lipitor) 80 mg QHS PO Last administered on 06/11/19 22:33; Admin Dose 80 MG; Start 06/07/19 at 21:00 Carvedilol (Coreg) 6.25 mg BID PO Last administered on 06/12/19 08:34; Admin Dose 6.25 MG; Start 06/07/19 at 09:30 Sacubitril/ Valsartan (Entresto 24 Mg-26 Mg) 1 tab BID PO Last administered on 06/12/19 08:33; Admin Dose 1 TAB; Start 06/07/19 at 09:30 Albuterol/ Ipratropium (Duoneb) 3 ml Q6HWA RESP THERAPY HHN Last administered on 06/12/19 08:14; Admin Dose 3 ML; Start 06/07/19 at 14:00 Furosemide (Lasix) 20 mg BID IV Last administered on 06/12/19 08:34; Admin Dose 20 MG; Start 06/08/19 at 21:00 BEV DOWNEY MD Jun 12, 2019 09:07
--- NOTE | 2019-06-12 09:10 | PDOCDIS ---
Discharge Instructions DIAGNOSIS Discharge Diagnosis 1. Acute on chronic CHF exacerbation, systolic- improved 2. Acute chest discomfort- resolved 3. Cardiomyopathy, EF of 20% 4. COPD 5. HTN 6. Dyslipidemia 7. Homeless CONDITION [id number] Patient Condition: [id number] Stable HOME CARE INSTRUCTIONS: [id number] Diet Instructions: [id number] Low Fat /Cholesterol ACTIVITY: [id number] Activity Restrictions: [id number] No Restrictions FOLLOW UP/APPOINTMENTS Follow-up Plan 1. Follow up with your primary care physician in 1-2 weeks 2. Follow up with your Senior [employer] in 2-3 weeks 3. Continue all medications as prescribed 4. Limit salt intake to 2 grams daily to avoid accumulation of extra fluid in your body 5. If experiencing any concerning symptoms, please go to the nearest emergency department BEV DOWNEY MD Jun 12, 2019 09:10
--- NOTE | 2019-06-12 11:47 | CONS ---
Assessment/Plan Assessment/Plan Hospital Course (Demo Recall) IMP: 1.CHF-systolic acute on chronic. Neg trop x 3 2.Cardiomyopathy-last known 20% 3.H/O ICD 4.HTN 5.HL 6.secondary to #1 7.Psych 8. edema-assymetric- no DVT by LE venous DEVONTE 9. NSVT-episode, self limited Recc: -Tele -serial ecg's -Continue coreg and entresto -Continue lasix diuresis BID with change to PO at d/c -Continue statin/asa -Continue bronchodilators -steroids d/c'd -will f/u repeat echo to reassess and document most recent EF -Keep K>4 and Mg>2 as possible Consultation Date/Type/Reason Admit Date/Time Jun 07, 2019 at 11:24 Initial Consult Date 06/07/19 Type of Consult Cardiology Reason for Consultation cardiomyopathy/CHF Requesting Provider: CARMELA BUENO MD Date/Time of Note DATE: 06/12/19 TIME: 11:44 Exam/Review of Systems Vital Signs Vitals Vital Signs Date Temp Pulse Resp B/P (MAP) Pulse Ox O2 O2 Flow FiO2 Time Delivery Rate 06/12/19 67 20 95 21 08:00 06/12/19 98.0 110/53 Room Air 07:13 (72) Intake and Output 06/11/19 06/11/19 06/12/19 1515:00 23:00 07:00 IntakeIntake Total 400 ml 1470 ml 1280 ml OutputOutput Total 300 ml 900 ml BalanceBalance 100 ml 570 ml 1280 ml Exam Exam Review of Systems: CONSTITUTIONAL: No fevers, chills. PULMONARY: No sob CARDIOVASCULAR: No chest pain/palpitations GASTROINTESTINAL: No nausea/vomiting. GENITOURINARY: No hematuria/dysuria. MUSCULOSKELETAL: No myagias/arthalgias. PSYCHIATRIC: The patient denies depression. NEUROLOGIC: No weakness Constitutional: alert Psych: no complaints Head: normocephalic ENMT: mucosa pink and moist Neck: supple, jvd (9 cm water) Respiratory: clear to auscultation Cardiovascular: regular rate and rhythm Gastrointestinal: soft, non-tender Musculoskeletal: muscle tone (normal) Extremities: pitting pedal edema (at [place] bilateral) Neurological: other (No focal deficits) Labs Result Diagram: 06/12/1937 06/12/1937 Results 24hrs Laboratory Tests Test 06/12/19 05:37 White Blood Count 10.0 Red Blood Count 4.96 Hemoglobin 12.5 L Hematocrit 40.3 L Mean Corpuscular Volume 81.3 L Mean Corpuscular Hemoglobin 25.2 L Mean Corpuscular Hemoglobin Concent 31.0 L Red Cell Distribution Width 18.4 H Platelet Count 264 Mean Platelet Volume 11.2 H Immature Granulocytes % 0.800 H Neutrophils % 77.9 H Lymphocytes % 12.5 L Monocytes % 6.9 Eosinophils % 1.4 Basophils % 0.5 Nucleated Red Blood Cells % 0.0 Immature Granulocytes # 0.080 H Neutrophils # 7.8 H Lymphocytes # 1.3 Monocytes # 0.7 Eosinophils # 0.1 Basophils # 0.1 Nucleated Red Blood Cells # 0.0 Sodium Level 136 Potassium Level 4.1 Chloride Level 101 Carbon Dioxide Level 28 Anion Gap 7 Blood Urea Nitrogen 43 H Creatinine 1.14 Glucose Level 235 #H Calcium Level 8.8 Phosphorus Level 4.1 Magnesium Level 2.3 Albumin 3.1 L Medications Medications Current Medications IV Flush (NS 3 ml) 3 ml PER PROTOCOL IV ; Start 06/07/19 at 00:30 Ondansetron HCl (Zofran Inj) 4 mg Q6H PRN IV NAUSEA/VOMITING; Start 06/07/19 at 00:30 Nitroglycerin (Nitroglycerin (Sl Tab) 0.4 Mg) 1 tab Q5M PRN SL .CHEST PAIN; Start 06/07/19 at 00:30 Heparin Sodium (Porcine) (Heparin (5000 Units/1ml)) 5,000 unit Q12 SC Last administered on 06/12/19at 08:40; Admin Dose 5,000 UNIT; Start 06/07/19 at 09:00 Albuterol/ Ipratropium (Duoneb) 3 ml Q2H RESP THERAPY PRN HHN SHORTNESS OF BREATH; Start 06/07/19 at 00:30 Acetaminophen (Tylenol Tab) 500 mg Q6H PRN PO MILD PAIN(1-3)OR ELEVATED TEMP; Start 06/07/19 at 00:30 Quetiapine Fumarate (Seroquel) 50 mg HS PO Last administered on 06/11/19at 22:33; Admin Dose 50 MG; Start 06/07/19 at 21:00 Aspirin (Halfprin) 81 mg DAILY PO Last administered on 06/12/19 08:34; Admin Dose 81 MG; Start 06/07/19 at 09:30 Atorvastatin Calcium (Lipitor) 80 mg QHS PO Last administered on 06/11/19 22:33; Admin Dose 80 MG; Start 06/07/19 at 21:00 Carvedilol (Coreg) 6.25 mg BID PO Last administered on 06/12/19 08:34; Admin Dose 6.25 MG; Start 06/07/19 at 09:30 Sacubitril/ Valsartan (Entresto 24 Mg-26 Mg) 1 tab BID PO Last administered on 06/12/19 08:33; Admin Dose 1 TAB; Start 06/07/19 at 09:30 Albuterol/ Ipratropium (Duoneb) 3 ml Q6HWA RESP THERAPY HHN Last administered on 06/12/19 08:14; Admin Dose 3 ML; Start 06/07/19 at 14:00 Furosemide (Lasix) 20 mg BID IV Last administered on 06/12/19 08:34; Admin Dose 20 MG; Start 06/08/19 at 21:00 OTIS HORAN Jun 12, 2019 11:47
--- NOTE | 2019-06-12 15:52 | DS ---
Date/Time of Note Date/Time of Note DATE: 06/12/19 TIME: 15:48 Discharge Summary Admission/Discharge Info Admit Date/Time Jun 07, 2019 at 11:24 Discharge Date/Time Jun 12, 2019 at 11:47 Discharge Diagnosis 1. Acute on chronic CHF exacerbation, systolic- improved 2. Acute chest discomfort- resolved 3. Cardiomyopathy, EF of 20% 4. COPD 5. HTN 6. Dyslipidemia 7. Homeless Patient Condition: Stable Consults Cardiology- Dr. Wynn Hx of Present Illness Patient is a 69-year-old homeless male with a history of cardiomyopathy with EF of 20% status post AICD, COPD, hypertension, dyslipidemia. Patient presented to the ER complaining of shortness of breath, chest pain, dizziness. Patient is very sleepy at this time and as such unable to gather significant information. Patient sounds congested and wheezing noted. He was admitted recently and actually left AMA a week ago after he was admitted for a CHF exacerbation. He said he is still homeless. Chest imaging shows the following 1. Findings suggestive of pulmonary vascular congestion with small bilateral pleural effusions, mildly improved on the left when compared to the prior examination. 2. Mild cardiomegaly and aortic atherosclerosis. Hospital Course Patient was admitted for treatment of congestive heart failure and all m edications were restarted. Cardiology was consulted for medication management and adjustments were made for diuretics. Patient's shortness of breath and leg swelling improved with diuresis. Patient was seen by typing office worker and offered interm housing which patient agreed to. Patients vitals remained stable and presenting symptoms improved significantly. He was transitioned to PO Lasix prior to discharge. Patient was accepted to [facility], medications were delivered, and patient was discharged from the hospital in good condition. Home Meds Active Scripts Duloxetine Hcl* (Duloxetine Hcl*) 30 Mg Capsule., 30 MG PO DAILY for 30 Days, #30 CAP Prov:BEV DOWNEY MD 06/11/19 Acetaminophen* (Acetaminophen*) 500 MG Extra Strength Tablet, 500 MG PO Q6H PRN for PAIN AND OR ELEVATED TEMP for 30 Days, #90 TAB Prov:BEV DOWNEY MD 06/11/19 Quetiapine Fumarate* (Quetiapine Fumarate*) 50 Mg Tablet, 50 MG PO HS for 30 Days, #30 TAB Prov:BEV DOWNEY MD 06/11/19 Sacubitril/Valsartan (Entresto 24 mg-26 mg Tablet) 1 Each Tablet, 1 EACH PO BID for 30 Days, #60 TAB Prov:BEV DOWNEY MD 06/11/19 Carvedilol* (Carvedilol*) 6.25 Mg Tablet, 6.25 MG PO BID for 30 Days, #60 TAB Prov:BEV DOWNEY MD 06/11/19 Furosemide* (Furosemide*) 40 Mg Tablet, 40 MG PO BID for 30 Days, #60 TAB Prov:BEV DOWNEY MD 06/11/19 Atorvastatin* (Atorvastatin*) 80 Mg Tablet, 80 MG PO QHS for 30 Days, #30 TAB Prov:BEV DOWNEY MD 06/11/19 Aspirin* (Aspirin* EC) 81 Mg Tablet.dr, 81 MG PO DAILY for 30 Days, #30 TAB Prov:BEV DOWNEY MD 06/11/19 Follow-up Plan 1. Follow up with your primary care physician in 1-2 weeks 2. Follow up with your Cut File Clerk in 2-3 weeks 3. Continue all medications as prescribed 4. Limit salt intake to 2 grams daily to avoid accumulation of extra fluid in your body 5. If experiencing any concerning symptoms, please go to the nearest emergency department Primary Care Provider Care Physician No Primary Time spent on discharge: > 30 minutes Pending Labs Laboratory Tests Test 06/12/19 05:37 White Blood Count 10.0 10^3/ul (4.8-10.8) Red Blood Count 4.96 10^6/ul (4.70-6.10) Hemoglobin 12.5 g/dl (14.0-18.0) Hematocrit 40.3 % (42.0-52.0) Mean Corpuscular Volume 81.3 fl (82.0-101.0) Mean Corpuscular Hemoglobin 25.2 pg (29.0-33.0) Mean Corpuscular Hemoglobin Concent 31.0 g/dl (32.0-37.0) Red Cell Distribution Width 18.4 % (11.5-14.5) Platelet Count 264 10^3/UL (140-415) Mean Platelet Volume 11.2 fl (7.4-10.4) Immature Granulocytes % 0.800 % (0.001-0.429) Neutrophils % 77.9 % (39.0-77.0) Lymphocytes % 12.5 % (15.0-51.0) Monocytes % 6.9 % (0.0-11.0) Eosinophils % 1.4 % (0.0-7.0) Basophils % 0.5 % (0.0-2.0) Nucleated Red Blood Cells % 0.0 /100WBC (0.0-0.0) Immature Granulocytes # 0.080 10^3/ul (0.0-0.031) Neutrophils # 7.8 10^3/ul (1.6-7.5) Lymphocytes # 1.3 10^3/ul (0.8-2.9) Monocytes # 0.7 10^3/ul (0.3-0.9) Eosinophils # 0.1 10^3/ul (0.0-0.5) Basophils # 0.1 10^3/ul (0.0-0.1) Nucleated Red Blood Cells # 0.0 10^3/ul (0.0-0.0) Sodium Level 136 mmol/L (135-144) Potassium Level 4.1 mmol/L (3.5-5.1) Chloride Level 101 mmol/L (97-110) Carbon Dioxide Level 28 mmol/L (21-31) Anion Gap 7 (5-13) Blood Urea Nitrogen 43 mg/dl (7-20) Creatinine 1.14 mg/dl (0.61-1.24) Glucose Level 235 mg/dl (70-220) Calcium Level 8.8 mg/dl (8.4-10.2) Phosphorus Level 4.1 mg/dl (2.5-4.9) Magnesium Level 2.3 mg/dl (1.7-2.5) Albumin 3.1 g/dl (3.3-4.9) BEV DOWNEY MD Jun 12, 2019 15:52
== END 2019-06-12 11:47 | disposition home or self-care (01) | DRG 292 ==
LOC: E/R 15:48 → 6WM 17:09 → OBSVTOIN 06-07 11:24
PROVIDERS: ADMIT Internal Medicine; ATTEND Internal Medicine
DX: I11.0 Hypertensive heart disease with heart failure (principal); J44.1 Chronic obstructive pulmonary disease with (acute) exacerbation; I47.2 Ventricular tachycardia; I50.23 Acute on chronic systolic (congestive) heart failure; E78.5 Hyperlipidemia, unspecified; F17.200 Nicotine dependence, unspecified, uncomplicated; Z95.1 Presence of aortocoronary bypass graft; I25.5 Ischemic cardiomyopathy; I25.10 Atherosclerotic heart disease of native coronary artery without angina pectoris; R07.89 Other chest pain; F99 Mental disorder, not otherwise specified; Z59.0 Homelessness; Z95.810 Presence of automatic (implantable) cardiac defibrillator
CPT/HCPCS: 36415; 71045; 80048; 80053; 80069; 82550; 82553; 83735; 84484; 85025; 87081; 93005; 93970; 94640; 94664; G0378; J1644; J1940; J3475; J7030; J7512

== ENCOUNTER 2019-08-10 21:34 | Emergency (ER) | payer MEDICARE, MEDICAID ==
[~2019-08-10] VITALS: Ht 177.8 cm; Wt 82.0 kg
[2019-08-10 21:36] VITALS: Ht 177.8 cm; Wt 82.0 kg
[2019-08-10 23:23] VITALS: BP 118/67; PULSE 78; RESP 16
== END 2019-08-10 23:24 | disposition home or self-care (01) ==
LOC: E/R 21:34
DX: R07.9 Chest pain, unspecified (principal); I10 Essential (primary) hypertension; Z95.0 Presence of cardiac pacemaker; Z79.82 Long term (current) use of aspirin
CPT/HCPCS: 71045; 93005